=== PATIENT | female | born 1965 | race Caucasian/White ===

== ENCOUNTER 2023-06-24 19:29 | Emergency (ER) | payer BC, SELFPAY ==
--- NOTE | 2023-06-24 19:35 | ED.GENADULT ---
HPI - General Adult General Time Seen by Provider: 19:35 Date Seen: 06/24/23 Chief complaint: Diabetic Related Problem Stated complaint: high blood sugar, diabetic Time Seen by Provider: 06/24/23 19:31 Source: patient, family, RN notes reviewed and old records reviewed Mode of arrival: ambulatory Limitations: no limitations History of Present Illness HPI narrative: 57-year-old female with history of diabetes presents with elevated blood glucose. Patient has previously been on Victoza but has not had this for a couple weeks, blood glucoses have been over 200 during that time, has been taking metformin. Notes some dizziness and blurred vision. Denies urinary symptoms, abdominal pain, nausea, or vomiting. Patient is currently taking metformin 1000 mg twice a day, has never been on insulin Related Data Home Medications Medication Instructions Recorded Confirmed atorvastatin 20 mg tablet 20 mg PO DAILY 06/24/23 06/24/23 losartan 100 1 tab PO DAILY 06/24/23 06/24/23 mg-hydrochlorothiazide 12.5 mg tablet metformin 1,000 mg tablet 1,000 mg PO BID 06/24/23 06/24/23 Previous Rx's Medication Instructions Recorded insulin glargine 100 unit/mL (3 8 unit (0.08 mL) subcut QPM #3 mL 06/24/23 mL) subcutaneous pen (Lantus Solostar U-100 Insulin) Allergies Allergy/AdvReac Type Severity Reaction Status Date / Time Sulfa (Sulfonamide Allergy Unknown Verified 06/24/23 19:40 Antibiotics) Exam Narrative: Exam Narrative: General: Well-developed and well-nourished, no acute distress Head: Atraumatic and normocephalic Eyes: Pupils are equal reactive, extraocular motions intact, conjunctiva clear ENT: External nose and ears are normal, posterior pharynx without erythema or exudate Neck: No midline cervical tenderness, full spontaneous range of motion the neck, trachea midline, no adenopathy Heart: Regular rate and rhythm no murmurs or thrills Lungs: Clear to auscultation bilaterally without wheezes or crackles Abdomen: Soft, nontender, nondistended with active bowel sounds Musculoskeletal: No tenderness, deformity, or edema Neurologic: Awake, alert, and oriented x3, no gross focal neurologic deficits, cranial nerves intact as tested Psych: Mood and affect are appropriate Skin: No rashes Const: Vital Signs, click to edit/add: Vital Signs - 24 hr 06/24/23 19:37 Temperature 98.6 F Pulse Rate [Pulse Oximeter] 107 H Respiratory Rate 16 Blood Pressure [Ri ght Upper Arm] 142/84 H Pulse Oximetry 96 Oxygen Delivery Me thod Room Air Course Course ED Course: Patient seen examined, prior records reviewed. Patient presents with elevated blood glucose in setting of known diabetes and has not been on Victoza for couple of weeks. Some blurry vision but denies any other symptoms. On exam here, well-appearing, no abdominal pain or tenderness to suggest acute pancreatitis or hepatitis. Mild tachycardia and blood glucose on initial presentation 388. IV fluids are initiated and labs ordered. Reevaluation(s) Time of Reevaluation #1: 21:22 Reevaluation #1: Labs ordered and independently interpreted by me with venous blood gas pH is 7.46, urine does not demonstrate any ketones but does have glucose. No evidence for DKA. Regular insulin subcutaneously as well as long-acting insulin subcutaneous ordered. Patient thinks she will be able to get her Victoza tomorrow. Will send a prescription for long-acting insulin to the pharmacy so that if patient is unable to fill her Victoza she can start using long-acting insulin daily to prevent severe hyperglycemia until she can reestablish. If she has further difficulty, should contact primary care provider. Time of Reevaluation #2: 22:28 Reevaluation #2: Basic panel demonstrates elevated blood glucose, mild anion gap. Patient was given IV fluids in the emergency department and stable for discharge with insulin for home. Repeat blood glucose is 299. Vital Signs Vital signs: Initial Vital Signs Temperature 98.6 F 06/24/23 19:37 Temperature Source Temporal Artery Scan 06/24/23 19:37 Pulse Rate 107 H 06/24/23 19:37 Respiratory Rate 16 06/24/23 19:37 Blood Pressure 142/84 H 06/24/23 19:37 Blood Pressure Mean 103 06/24/23 19:37 Blood Pressure Position Sitting 06/24/23 19:37 Pulse Oximetry 96 06/24/23 19:37 Oxygen Delivery Method Room Air 06/24/23 19:37 Vital Signs Temperature 98.6 F 06/24/23 19:37 Pulse Rate 107 H 06/24/23 19:37 Respiratory Rate 16 06/24/23 19:37 Blood Pressure 142/84 H 06/24/23 19:37 Pulse Oximetry 96 06/24/23 19:37 Oxygen Delivery Method Room Air 06/24/23 19:37 Temperature 98.6 F 06/24/23 19:37 Pulse Rate 107 H 06/24/23 19:37 Respiratory Rate 16 06/24/23 19:37 Blood Pressure 142/84 H 06/24/23 19:37 Pulse Oximetry 96 06/24/23 19:37 Oxygen Delivery Method Room Air 06/24/23 19:37 Medications Administered Medications: Discontinued Medications Generic Name Dose Route Start Last Admin Trade Name Freq PRN Reason Stop Dose Admin Sodium Chloride 1,000 mls @ 1,000 mls/hr 06/24/23 20:00 06/24/23 21:32 0.9 % Sodium Chloride 1000 Ml IV 06/24/23 20:59 Infused .Q1H PAULO Infusion Insulin Detemir 6 unit 06/24/23 21:02 06/24/23 21:26 Insulin Detemir (Levemir) 100 Unit/Ml SUBCUT 06/24/23 21:03 6 unit ONCE ONE Administration Insulin Human Regular 4 unit 06/24/23 20:58 06/24/23 21:25 Insulin Regular 100 Unit/Ml Inj SUBCUT 06/24/23 20:59 4 unit ONCE ONE Administration Medical Decision Making Lab Data Labs: Lab Results 06/24/23 06/24/23 06/24/23 Range/Units 19:40 19:42 20:10 VBG pH 7.466 H (7.32-7.43) VBG pCO2 36 L (40-50) mmHG VBG pO2 98.0 H (25-47) mmHG VBG HCO3 26 (21-28) mmol/L Sodium 136 (135-149) mmol/L Potassium 3.8 (3.6-5.1) mmol/L Chloride 99 (96-114) mmol/L Carbon Dioxide 19 L (20-32) mmol/L Anion Gap 18 H (7-15) mEq/L BUN 14 (7-30) mg/dL Creatinine 0.5 (0.5-1.5) mg/dL Estimated Creat Clear 120.72 Estimated GFR 109 ml/min Glucose 424 H* (60-115) mg/dL Calcium 10.1 (8.4-10.6) mg/dL Urine Color Yellow (Yellow) Urine Appearance Clear (Clear) Urine pH 5.5 (5.0-8.5) Ur Specific [place] <= 1.005 (1.000-1.030) Urine Protein Negative (Negative) Urine Glucose (UA) 3+ A (Negative) Urine Ketones Negative (Negative) Urine Blood Negative (Negative) Urine Nitrite Negative (Negative) Urine Bilirubin Negative (Negative) Urine Urobilinogen 0.2 (0.2-1.0) Ur Leukocyte Esterase Negative (Negative) Urine RBC 0-2 (0-2) Urine WBC 0-2 (0-5) Ur Squamous Epith Cells None (None-Few) Urine Bacteria None (None) POC Glucose 388 H* (60-115) mg/dl Discharge Plan Discharge Clinical Impression: Controlled type 2 diabetes mellitus with hyperglycemia, without long-term current use of insulin Patient Disposition: Home w/ Parent or Adult Condition: Stable Instructions: Diabetic Hyperglycemia (ED), Type 2 Diabetes Management for Adults (ED) Additional Instructions: Start Victoza tomorrow if you are able to get it. If not, start Lantus daily until you are able to get your Victoza. Activity Level: No Restrictions Discharge Diet: Diabetic Prescriptions: New insulin glargine [Lantus Solostar U-100 Insulin] 100 unit/mL (3 mL) insulin pen 8 unit subcut QPM Qty: 3 0RF No Action atorvastatin 20 mg tablet 20 mg PO DAILY metformin 1,000 mg tablet 1,000 mg PO BID losartan-hydrochlorothiazide 100-12.5 mg tablet 1 tab PO DAILY Follow Up/Referrals: Rich Dupree MD [Primary Care Provider] - Stand Alone Forms: [employer] Info Instructions
[2023-06-24 19:37] VITALS: BP 142/84; PULSE 107; RESP 16; TEMP 37; O2SAT 96; BMI 26.9
[2023-06-24 19:42] LABS: Glucose, Point-of-Care* 388 mg/dl (60-115)
[2023-06-24 20:15] LABS: Appearance Urine Clear (Clear); Bilirubin Urine Negative (Negative); Blood Urine Negative (Negative); Color Urine Yellow (Yellow); Glucose Urine 3+ (Negative); Ketones Urine Negative (Negative); Leukocyte Esterase Urine Negative (Negative); Nitrite Urine Negative (Negative); Protein Urine Negative (Negative); Specific Gravity Urine <= 1.005 (1.000-1.030); Urobilinogen Urine 0.2 (0.2-1.0); pH Urine 5.5 (5.0-8.5)
[2023-06-24 20:16] LABS: HCO3 VBG 26 mmol/L (21-28); PCO2 VBG 36 mmHG (40-50); pH VBG 7.466 (7.32-7.43)
[2023-06-24] MEDS: 0.9 % SODIUM CHLORIDE 1000 ml 1,000 ML IV (20:20)
[2023-06-24 20:23] LABS: RBC Urine 0-2 (0-2); WBC Urine 0-2 (0-5)
--- OUTSIDE RECORDS SUMMARY | 2023-06-24 20:25 | XMS_ITS ---
Author Name Unknown Organization [facility] Address [address] [place] [address] Care Team Providers Care Lithograph Printer Name Role Phone Unavailable Unavailable Unavailable Surgery Details Not on file Complications Check Surgery Details section. Procedure Estimated Blood Loss Check Surgery Details section. Procedure Findings Check Surgery Details section. Procedure Specimens Taken Check Surgery Details section.
--- OUTSIDE RECORDS SUMMARY | 2023-06-24 20:25 | XMS_ITS | Data Portability ---
Author Name Unknown Address [address] [place] [address] Phone [phone] Organization [facility] Address [address] [place] [address] Care Team Providers Care Supervisor Building Maintenance Name Role Phone TRAV SHARPE Primary Care Provider [phone] Assessment Encounter Date Assessment Date Assessment LastModified by Organization Details LastModified Time 02/03/2022 02/03/2022 This is a 56 yea r old female who is here for the evaluation and management of nephrolithiasis [email or web address] Not available 02/03/2022 12:24:29 Plan of Treatment Reminders Order Date Submit Date Provider Last Modified By Organization Details Last Modified Time Details Appointments None recorded. Lab urinalysis , dipstick 2021 [facility], [address], [address], [place], [address], 12:18:41 culture, urine 2021 [facility], [address], [address], [place], [address], 11:42:46 Referral None recorded. Procedures None recorded. Surgeries None recorded. Imaging CT, abdomen + pelvis, w/o contrast - Please call patient to schedule 2021 [facility] [facility], [address], [address], [place], [address], 15:32:58 Medication Orders None recorded. Patient TargetsNo targets recorded. Patient Instructions Encounter Date Encounter Id Patient Instructions Last Modified By Organization Details Last Modified Time 02/03/2022 [id number] Hx of nephrolithiasis: - I will arrange for a repeat CT scan since her pain has been changing and is more constant in nature. I wonder if one of her stones is starting to pass - She states that regardless of her stone attempting to pass or not, she would like the stones on her left to be treated due to the pain - We first discussed a trial of passage with/without medical expulsive therapy. We would allow for a maximum period of 4 weeks from the onset of symptoms. At this point we would obtain repeat imaging to assess for passage or migration. -We then touched on surgical management strategies. We discussed ureteroscopic stone management. We discussed the technical aspects of the procedure as well as its limitations. We discussed the risks of the procedure including bleeding, infection. risk of ureteral injury, need for secondary procedures, and anesthetic complications. We also discussed that in about 5-10% of cases the ureter cannot facilitate the scope and this may require stent placement and a delayed procedure. We also discussed a ureteral stent is often left in place at the end of the procedure. This is not a permanent tube and must be removed, hopefully within 1-2 weeks of the procedure but certainly not more than 3 months post-procedure. - Once I have her CT results, I will contact her and arrange for elective stone treatment [email or web address] Not available 02/03/2022 12:37:05 Reason for Referral None Reported. Results Created Date Observation Date Name Description Value Unit Range Abnormal Flag LastModifiedBy Organization Detail LastModifiedTime 02/04/20 22 02/03/2022 UA DIP CS ADVAN TUS color -advantus yellow yellow Not Available [facility] [address], [place], [address], 02/03/2022 12:18:41 02/04/20 22 02/03/2022 UA DIP CS ADVAN TUS appearance -advantus clear clear Not Available [facility] [address], [place], [address], 02/03/2022 12:18:41 02/04/20 22 02/03/2022 UA DIP CS ADVAN TUS glucose -advantus negati ve mg/dL negati ve Not Available [facility] [address] [place] [address] [address], [place], [address], 02/03/2022 12:18:41 02/04/20 22 02/03/2022 UA DIP CS ADVAN TUS bilirubin -advantus negati ve negati ve Not Available [facility] [address] [place] [address], [place], [address], 02/03/2022 12:18:41 02/04/20 22 02/03/2022 UA DIP CS ADVAN TUS ketones -advantus negati ve mg/dL negati ve Not Available [facility] [address] [place] [address], [place], [address], 02/03/2022 12:18:41 02/04/20 22 02/03/2022 UA DIP CS ADVAN TUS sp. gravity -advantus <=1.00 5 1.010- 1.025 Not Available [facility] [address] [place] [address], [place], [address], 02/03/2022 12:18:41 02/04/20 22 02/03/2022 UA DIP CS ADVAN TUS pH -advantus 5.0 5.0-8. 0 Not Available [facility] [address] [place] [address], [place], [address], 02/03/2022 12:18:41 02/04/20 22 02/03/2022 UA DIP CS ADVAN TUS protein -advantus negati ve mg/dL negati ve Not Available [facility] [address] [place] [address], [place], [address], 02/03/2022 12:18:41 02/04/20 22 02/03/2022 UA DIP CS ADVAN TUS urobilinogen -advantus 0.2 normal Not Available [facility] [address] [facility] [address], [place], [address], 02/03/2022 12:18:41 02/04/20 22 02/03/2022 UA DIP CS ADVAN TUS nitrites -advantus negati ve negati ve Not Available [facility] [address] [place] [address] [address], [place], [address], 02/03/2022 12:18:41 02/04/20 22 02/03/2022 UA DIP CS ADVAN TUS blood -advantus modera te negati ve abnormal Not Available [facility] [address] [place] [address], [place], [address], 02/03/2022 12:18:41 02/04/20 22 02/03/2022 UA DIP CS ADVAN TUS leukocytes -advantus trace negati ve abnormal Not Available [facility] [address] [place] [address], [place], [address], 02/03/2022 12:18:41 02/04/20 22 02/03/2022 UA DIP CS ADVAN TUS performed by denise Kinsey Not Available [facility] [address] [place] [address], [place], [address], 02/03/2022 12:18:41 02/04/20 22 02/03/2022 UA DIP CS ADVAN TUS total urine volume (mL) 80 /mL Not Available [facility] [address] [place] [address], [place], [address], 02/03/2022 12:18:41 02/04/20 22 02/03/2022 UA MICRO SCOPI C U-WBC 2 - 5 [hpf] 0 - 2 abnormal Not Available [facility] [address] [place] [address], [place], [address], 02/03/2022 12:18:46 02/04/20 22 02/03/2022 UA MICRO SCOPI C U-RBC 0 - 2 [hpf] 0 - 2 Not Available [facility] [address], [place], [address], 02/03/2022 12:18:46 02/04/20 22 02/03/2022 UA MICRO SCOPI C bacteria small [hpf] negati ve abnormal Not Available [facility] [address], [place], [address], 02/03/2022 12:18:46 02/04/20 22 02/03/2022 UA MICRO SCOPI C squamous epi small /lpf negati ve,sma ll Not Available [facility] [address], [place], [address], 02/03/2022 12:18:46 02/04/20 22 02/03/2022 URINE CULTU RE final report microb iology result s Not Available [facility] [address], [place], [address], 02/05/2022 11:42:46 02/17/20 22 02/21/2022 STONE DESTIN SIS source commen t Not Available [facility] ([facility]) [address] [place], [address], 02/21/2022 12:07:23 02/17/20 22 02/21/2022 STONE DESTIN SIS color hanna Not Available [facility] ([facility]) [address] [place], [address], 02/21/2022 12:07:23 02/17/20 22 02/21/2022 STONE DESTIN SIS size <1 mm Not Available [facility] ([facility]) [address] [place], [address], 02/21/2022 12:07:23 02/17/20 22 02/21/2022 STONE DESTIN SIS weight <1 mg Not Available [facility] ([facility]) [address] [place], [address], 02/21/2022 12:07:23 02/17/20 22 02/21/2022 STONE DESTIN SIS composition commen t Not Available [facility] ([facility]) [address] [place], [address], 02/21/2022 12:07:23 02/17/20 22 02/21/2022 STONE DESTIN SIS calcium oxalate monohydrate 40 % Not Available [facility] ([facility]) [address] [place], [address], 02/21/2022 12:07:23 02/17/20 22 02/21/2022 STONE DESTIN SIS calcium oxalate dihydrate 60 % Not Available [facility] ([facility]) [address] [place], [address], 02/21/2022 12:07:23 02/17/20 22 02/21/2022 STONE DESTIN SIS hydroxyapati te green ware caster Not Available [facility] ([facility]) [address] [place], [address], 02/21/2022 12:07:23 02/17/20 22 02/21/2022 STONE DESTIN SIS carbonate apatite green ware caster Not Available [facility] ([facility]) [address] [place], [address], 02/21/2022 12:07:23 02/17/20 22 02/21/2022 STONE DESTIN SIS cahpo4 (brushite) green ware caster Not Available [facility] ([facility]) [address] [place], [address], 02/21/2022 12:07:23 02/17/20 22 02/21/2022 STONE DESTIN SIS calcium phosphate green ware caster Not Available [facility] ([facility]) [address] [place], [address], 02/21/2022 12:07:23 02/17/20 22 02/21/2022 STONE DESTIN SIS calcium carbonate green ware caster Not Available [facility] ([facility]) [address], [place], [address], 02/21/2022 12:07:23 02/17/20 22 02/21/2022 STONE DESTIN SIS mg nh4 PO4 (struvite) green ware caster Not Available [facility] ([facility]) [address], [place], [address], 02/21/2022 12:07:23 02/17/20 22 02/21/2022 STONE DESTIN SIS mghpo4 (newberyite) green ware caster Not Available [facility] ([facility]) [address], [place], [address], 02/21/2022 12:07:23 02/17/20 22 02/21/2022 STONE DESTIN SIS uric acid green ware caster Not Available [facility] ([facility]) [address], [place], [address], 02/21/2022 12:07:23 02/17/20 22 02/21/2022 STONE DESTIN SIS uric acid dihydrate green ware caster Not Available [facility] ([facility]) [address], [place], [address], 02/21/2022 12:07:23 02/17/20 22 02/21/2022 STONE DESTIN SIS ammonium acid urate green ware caster Not Available [facility] ([facility]) [address] [place], [address], 02/21/2022 12:07:23 02/17/20 22 02/21/2022 STONE DESTIN SIS sodium acid urate green ware caster Not Available [facility] ([facility]) [address] [place], [address], 02/21/2022 12:07:23 02/17/20 22 02/21/2022 STONE DESTIN SIS 2,8 dihydroxyade nine green ware caster Not Available [facility] ([facility]) [address] [place], [address], 02/21/2022 12:07:23 02/17/20 22 02/21/2022 STONE DESTIN SIS xanthine green ware caster Not Available [facility] ([facility]) [address] [place], [address], 02/21/2022 12:07:23 02/17/20 22 02/21/2022 STONE DESTIN SIS cystine green ware caster Not Available [facility] ([facility]) [address] [place], [address], 02/21/2022 12:07:23 02/17/20 22 02/21/2022 STONE DESTIN SIS cholesterol green ware caster Not Available [facility] ([facility]) [address] [place], [address], 02/21/2022 12:07:23 02/17/20 22 02/21/2022 STONE DESTIN SIS calcium bilirubinate green ware caster Not Available [facility] ([facility]) [address] [place], [address], 02/21/2022 12:07:23 02/17/20 22 02/21/2022 STONE DESTIN SIS bilirubin green ware caster Not Available [facility] ([facility]) [address] [place], [address], 02/21/2022 12:07:23 02/17/20 22 02/21/2022 STONE DESTIN SIS calcium palmitate green ware caster Not Available [facility] ([facility]) [address] [place], [address], 02/21/2022 12:07:23 02/17/20 22 02/21/2022 STONE DESTIN SIS calcium stearate green ware caster Not Available [facility] ([facility]) [address] [place], [address], 02/21/2022 12:07:23 02/17/20 22 02/21/2022 STONE DESTIN SIS triamterene green ware caster Not Available [facility] ([facility]) [address], [place], [address], 02/21/2022 12:07:23 02/17/20 22 02/21/2022 STONE DESTIN SIS drug or metabolite green ware caster Not Available [facility] ([facility]) [address], [place], [address], 02/21/2022 12:07:23 02/17/20 22 02/21/2022 STONE DESTIN SIS dried blood green ware caster Not Available [facility] ([facility]) [address], [place], [address], 02/21/2022 12:07:23 02/17/20 22 02/21/2022 STONE DESTIN SIS cellular material green ware caster Not Available [facility] ([facility]) [address], [place], [address], 02/21/2022 12:07:23 02/17/20 22 02/21/2022 STONE DESTIN SIS other component(s) green ware caster Not Available [facility] ([facility]) [address], [place], [address], 02/21/2022 12:07:23 02/17/20 22 02/21/2022 STONE DESTIN SIS comment green ware caster Not Available [facility] ([facility]) [address], [place], [address], 02/21/2022 12:07:23 02/17/20 22 02/21/2022 STONE DESTIN SIS comment commen t Not Available [facility] ([facility]) [address], [place], [address], 02/21/2022 12:07:23 02/17/20 22 02/21/2022 STONE DESTIN SIS photo tnp Not Available [facility] ([facility]) [address], [place], [address], 02/21/2022 12:07:23 02/17/20 22 02/21/2022 STONE DESTIN SIS comment: commen t Not Available [facility] ([facility]) [address], [place], [address], 02/21/2022 12:07:23 02/17/20 22 02/21/2022 STONE DESTIN SIS please note: commen t Not Available [facility] ([facility]) [address] [place], [address], 02/21/2022 12:07:23 02/17/20 22 02/21/2022 STONE DESTIN SIS disclaimer: commen t Not Available [facility] ([facility]) [address], [place], [address], 02/21/2022 12:07:23 02/17/20 22 02/21/2022 STONE DESTIN SIS pdf . Not Available [facility] ([facility]) [address], [place], [address], 02/21/2022 12:07:23 02/17/20 22 02/16/2022 STONE DESTIN SIS-L C source commen t Not Available [facility] [address], [place], [address], 02/22/2022 14:48:34 02/17/20 22 02/16/2022 STONE DESTIN SIS-L C color hanna Not Available [facility] [address] [facility] [address], [place], [address], 02/22/2022 14:48:34 02/17/20 22 02/16/2022 STONE DESTIN SIS-L C size <1 mm Not Available [facility] [address], [place], [address], 02/22/2022 14:48:34 02/17/20 22 02/16/2022 STONE DESTIN SIS-L C weight <1 mg Not Available [facility] [address], [place], [address], 02/22/2022 14:48:34 02/17/20 22 02/16/2022 STONE DESTIN SIS-L C composition commen t Not Available [facility] [address], [place], [address], 02/22/2022 14:48:34 02/17/20 22 02/16/2022 STONE DESTIN SIS-L C calcium oxalate monohydrate 40 % Not Available [facility] [address] [facility], [place], [address], 02/22/2022 14:48:34 02/17/20 22 02/16/2022 STONE DESTIN SIS-L C calcium oxalate dihydrate 60 % Not Available [facility] [address], [place], [address], 02/22/2022 14:48:34 02/17/20 22 02/16/2022 STONE DESTIN SIS-L C comment commen t Not Available [facility] [address], [place], [address], 02/22/2022 14:48:34 02/17/20 22 02/16/2022 STONE DESTIN SIS-L C photo test not perfor med. Not Available [facility] [address] [facility] [address], [place], [address], 02/22/2022 14:48:34 02/17/20 22 02/16/2022 STONE DESTIN SIS-L C comment: commen t Not Available [facility] [address] [facility] [address], [place], [address], 02/22/2022 14:48:34 02/17/20 22 02/16/2022 STONE DESTIN SIS-L C please note: commen t Not Available [facility] [address] [facility], [place], [address], 02/22/2022 14:48:34 02/17/20 22 02/16/2022 STONE DESTIN SIS-L C disclaimer: commen t Not Available [facility] [address], [place], [address], 02/22/2022 14:48:34 02/17/20 22 02/16/2022 STONE DESTIN SIS-L C pdf . Not Available [facility] [address], [place], [address], 02/22/2022 14:48:34 01/06/20 22 09/30/2021 CT, abdom en + pelvi s, w/o contr ast No observ ation record ed. Not Available 01/06/2022 14:02:45 02/09/20 22 02/05/2022 CT, abdom en + pelvi s, w/o contr ast No observ ation record ed. [email or web address] [facility] [address], [place], [address], 02/10/2022 10:14:51 02/09/20 22 02/05/2022 CT, abdom en + pelvi s, w/o contr ast No observ ation record ed. [email or web address] [facility] [address], [place], [address], 02/15/2022 16:28:30 Result Notes None recorded. Problems Name Status Onset Date Resolution Date Notes Provider Name and Address Organization Details Recorded Time Hypercholesterolemia Active Jammie Goodpaste r null, [facility] 2 11:52:45 Hypertensive disorder Active Jammie Goodpaste r null, [facility] 2 11:52:57 History of calculus of kidney Active Jammie Goodpaste r null, [facility] 2 11:53:08 Diabetes mellitus Active Ma ndi Goodpaste r null, [facility] 2 11:53:17 Malignant neoplastic disease Active Jammie Goodpaste r null, [facility] 11:53:26 Problem Notes None recorded. Procedures Surgical History Date Name Laterality Status Provider Name and Address Organization Details Recorded Time 10/22/19 Diagnostic colonoscopy completed Not Available Health Note 01/11/2022 12:44:30 delivery completed Not Available Health Note 01/11/2022 12:44:30 Imaging Results Imaging Date Name Status LastModified by Organiz ation Details LastModified Time 09/30/2021 CT, abdomen + pelvis, w/o contrast completed Information not available 01/06/2022 14:02:45 02/05/2022 CT, abdomen + pelvis, w/o contrast completed [email or web address] [facility] [address], [place], [address], 02/10/2022 10:14:51 02/05/2022 CT, abdomen + pelvis, w/o contrast completed [email or web address] [facility] [address], [place], [address], 02/15/2022 16:28:30 Procedure Notes None recorded. Medical Equipment None Reported. Allergies Allergen ID Allergen Name Allergen Category Reaction Reaction Severity Criticality Documentation Date Start Date Code Code System Note Provider Name and Address Organization Details Recorded Time [id number] Substance with sulfonami de structure and antibacte rial mechanism of action (substanc e) medicatio n Not available Not available Not available 02/03/2022 [id number] SNOMED Jammie Iván hernandez, [facility] 11:51:15 Medications Name Sig Start Date Stop Date Status Note LastModified by Organization Details LastModified Time losartan 50 mg tablet TAKE ONE TABLET BY MOUTH EVERY DAY active Not Available Not Available No t Available amoxicillin 500 mg capsule TAKE ONE CAPSULE BY MOUTH THREE TIMES A DAY UNTIL GONE 02/03 completed Not Available Not Available Not Available atorvastati n 20 mg tablet TAKE ONE TABLET BY MOUTH EVERY DAY active Not Available Not Available No t Available hydrocodone 5 mg-acetamin ophen 325 mg tablet TAKE ONE TABLET BY MOUTH EVERY 4 HOURS NEEDED FOR PAIN 02/03 completed Not Available Not Available Not Available tamsulosin 0.4 mg capsule TAKE ONE CAPSULE BY MOUTH EVERY DAY AFTER MEAL active Not Available Not Available No t Available cephalexin 500 mg capsule TAKE ONE CAPSULE BY MOUTH TWICE A DAY FOR 7 DAYS 02/03 completed Not Available Not Available Not Available metformin 1,000 mg tablet TAKE ONE TABLET BY MOUTH TWICE A DAY WITH MEALS active Not Available Not Available No t Available omeprazole 20 mg capsule,del ayed release TAKE ONE CAPSULE BY MOUTH EVERY DAY BEFORE A MEAL active Not Available Not Available No t Available oxybutynin chloride 5 mg tablet TAKE ONE TABLET BY MOUTH TWICE A DAY FOR 7 DAYS active Not Available Not Available No t Available sertraline 50 mg tablet TAKE ONE TABLET BY MOUTH EVERY DAY active Not Available Not Available No t Available aspirin 81mg 1/day active Not Available Not Available No t Available metformin 1000mg 2/day active Not Available Not Available No t Available Victoza 2-Anthony 1.2 mg 1/day active Not Available Not Available No t Available Victoza 3-Anthony 0.6 mg/0.1 mL (18 mg/3 mL) subcutaneou s pen injector INJECT 1.2MG ONCE DAILY active Not Available Not Available No t Available BD Belkys 2nd Gen Pen Needle 32 gauge x 5/32 REMOVE THE 2 COVERS ON THE INSULIN PEN NEEDLE BEFORE ADMINISTE RING INSULIN DOSE. active Not Available Not Available No t Available Vitals None Recorded Social History Question Answer Notes LastModified by Organizat ion Details LastModified Time Tobacco Smoking Status Never Smoker Not Available Health Note 01/11/2022 12:44:31 What Is Your Level Of Alcohol Consumption? None Information not available 02/03/2022 What Is Your Level Of Caffeine Consumption? Occasional [email or web address] Information not available 01/11/2022 How Much Tobacco Do You Chew? None [email or web address] Information not available 01/11/2022 Do You Or Have You Ever Used E-cigarettes Or Vape? Never Used Electronic Cigarettes [email or web address] Information not available 01/11/2022 Have You Or Anyone In Your House Tested Positive For COVID-19 In The Past 14 Days? No [email or web address] Information not available 01/11/2022 Have You Or Anyone In Your House Been Exposed To COVID-19 In The Past 14 Days? No [email or web address] Information not available 01/11/2022 Have You Or Anyone In Your Home Experienced Symptoms Of COVID 19 Such As Fever >100.4, Shortness Of Breath, Difficulty Breathing, Or A Cough? No [email or web address] Information not available 01/11/2022 Have You Traveled Outside Of [place] In The Past 30 Days? No [email or web address] Information not available 01/11/2022 Race Na Information not available 02/03/2022 Preferred Language Syriac Information not available 02/03/2022 Number Of Pregnancies 5 [email or web address] Information not available 01/11/2022 Number Of Vaginal Deliveries 3 [email or web address] Information not available 01/11/2022 Number Of Caesarean Sections 2 [email or web address] Information not available 01/11/2022 What Was The Date Of Your Most Recent Tobacco Screening? 02/03/2022 Information not available 02/03/2022 What Is Your Relationship Status? [email or web address] Information not available 01/11/2022 Are You Sexually Active? Yes [email or web address] Information not available 01/11/2022 Do You Or Have You Ever Used Smokeless Tobacco? Never Used Smokeless Tobacco [email or web address] Information not available 01/11/2022 Do You Use Any Illicit Or Recreational Drugs? No [email or web address] Information not available 01/11/2022 Has Tobacco Cessation Counseling Been Provided? Yes Information not available 02/03/2022 On What Date Was Tobacco Cessation Counseling Provided? 02/03/2022 Information not available 02/03/2022 Sex: Female Functional Status None recorded. Mental Status None recorded. Family History Relationship Description Onset Age of this Age Resolved Age Notes Mother Family history of ne oplasm of ovary Father Family history of pr ostate cancer 45 Medical History Condition Response Sexually Transmitted Infection N Diabetes Y Other N Bleeding Disorder N High Blood Pressure Y Kidney Stones Y High Cholesterol Y GERD/Acid Reflux N Heart Disease N Cancer Y Depression Y Lung Disease N Gynecological History Statement/Question Response If Post Menopausal, Age at Menopause 44 Leaking urine with intercourse N Hormone Therapy N Sexually Active? Y Pain with intercourse N Obstetrics History GPAL:G 0 P 0 0 0 0 Immunizations Vaccine Type Date Status Provider Name and Address Organization Details Recorded Time Tdap 12/07/2019 completed OSIEL Patino [facility] 02/03/2022 11:50:33 Hep A-Hep B 08/31/2005 completed Jammie Goodpaste r null, [facility] 02/03/2022 11:50:33 Hep A-Hep B 11/09/2005 completed Jammie Goodpaste r null, [facility] 02/03/2022 11:50:33 Tdap 08/20/2008 completed Jammie Goodpaste r null, [facility] 02/03/2022 11:50:33 Past Encounters Encounter ID Performer Location Encounter Start Date Encounter Closed Date Diagnosis/Indication [id number] MATIAS [facility] [facility],[address] [place] [id number] 02/03/2022 11:43:44 02/03/2022 13:04:33 Kidney stone Health Concerns Section Related Observation LastModified by Organization Detai ls LastModified Time None Recorded Concern Status LastModified by Organization Details LastModified Time None Recorded Advance Directives Directive None Recorded Payers Encounter Date Sequence Insurance Name Policy Number Policy [place] Covered Member ID Sutherland Member ID Guarantor Name 02/03/2022 1 [facility] [id number] Jose Winter [id number] Anu Winter Notes Date Note Type Note Provider Name and Address Organization Details Recorded Time 02/03/2022 text/html HPI Notes: This is a 56 year old female who is here for the evaluation and management of nephrolithiasis She was seen in due to left flank pain and hematuria A CT of the abdomen and pelvis w/o contrast was performed on 09/30/2021 which revealed two 6mm lower pole stones within the left kidney and a 2mm stone within the lower pole of the right kidney She states that since her scan, her left flank pain has been becoming more constant in nature They report a prior history of stone disease. There is family history of nephrolithiasis. MATIAS Burton [address] [place] [address],[place] [address], [place], [phone], [facility] 02/03/2022 12:37:19 OBGyn Episode No OBEpisode recorded.
--- OUTSIDE RECORDS SUMMARY | 2023-06-24 20:25 | XMS_ITS | Referral Summary ---
Author Name Unknown Organization [facility] Address [address] [place] [address] Care Team Providers Care Transition Teacher Name Role Phone Elsewhere, Pcp Primary Care Provider Unavailabl e Source Comments Patient records contain information from all sites at [facility]. For routine questions regarding patient records, call [phone] during business hours, M-F 8:00 AM - 5:00 PM Central Time. Record requests for emergency care only can be directed to [phone] at any time.[facility] Allergies Active Allergy Reactions Criticality Noted Date Comments Sulfa (Sulfonamide Antibiotics) Rash 07/23/2006 Venlafaxine Other (see comments) 01/30/2018 Suicidal ideations Medications Medication Sig Dispensed Refills Start Date End Date Status aspirin 81 mg capsule Take 81 mg by mouth daily. 0 Active metFORMIN (GLUCOPHAGE) 1,000 mg tablet Take 1,000 mg by mouth 2 (two) times a day. 0 Active liraglutide (Victoza 2-Anthony) 0.6 mg/0.1 mL (18 mg/3 mL) injection Inject 1.2 mg under the skin daily. 0 Active atorvastatin (LIPITOR) 20 mg tablet Take 20 mg by mouth daily. 0 05/31/2022 Active blood sugar diagnostic strips 1 each by other route daily. 0 12/13/2019 Active losartan (COZAAR) 50 mg tablet Take 50 mg by mouth daily. 0 09/11/2021 Active BD Belkys 2nd Gen Pen Needle 32 gauge x 5/32 needle Inject 1 each under the skin daily. 0 05/30/2022 Active Active Problems Problem Noted Date Diagnosed Date Stone Urinary Personal History 06/15/2022 Diabetes Mellitus NOS 12/27/2016 Hypertension Essential Primary 12/27/2016 Social History Tobacco Use Types Packs/Day Years Used Date Smoking Tobacco: Never Smokeless Tobacco: Never Tobacco Cessation:Counseling Given: Not Answered Nutrition Answer Date Recorded Nutrition: EVOO Fat Source Unknown 07/15 Nutrition: Servings of Fruits/Vegetables per Day Not on file 2020 Dental Answer Date Recorded Dental: Regular Dentist Unknown 07/15/19 21 Sex and Gender Information Value Date Recorded Sex Assigned at Not on file Gender Identity Not on file Sexual Orientation Not on file Last Filed Vital Signs Vital Sign Reading Time Taken Comments Blood Pressure 146/101 06/15/2022 3:59 PM STORE STOCKER Pulse 97 06/15/2022 3:59 PM STORE STOCKER Temperature 36.5 ??C (97.7 ??F) 06/15/2022 3:54 PM CS T Respiratory Rate - - Oxygen Saturation - - Inhaled Oxygen Concentration - - Weight 82.6 kg (182 lb 1.6 oz) 06/15/2022 3:54 P M STORE STOCKER Height - - Body Mass Index - - Plan of Treatment Not on file Care Teams Transition Teacher Relationship Specialty Start Date End Date Elsewhere, Pcp PCP - General Internal Medicine 06/15/22
--- OUTSIDE RECORDS SUMMARY | 2023-06-24 20:25 | XMS_ITS | Clinical Summary ---
Author Name Unknown Organization [facility] Address [address] [place] [address] Care Team Providers Care Pit Manager Name Role Phone Elsewhere, Pcp Primary Care Provider Unavailabl e Source Comments Patient records contain information from all sites at [facility]. For routine questions regarding patient records, call [phone] during business hours, M-F 8:00 AM - 5:00 PM Central Time. Record requests for emergency care only can be directed to [phone] at any time.[facility] Allergies Active Allergy Reactions Criticality Noted Date [...] Comments Blood Pressure 146/101 06/15/2022 3:59 PM JUNIOR PROJECT COORDINATOR Pulse 97 06/15/2022 3:59 PM JUNIOR PROJECT COORDINATOR Temperature 36.5 ??C (97.7 ??F) 06/15/2022 3:54 PM CS T Respiratory Rate - - Oxygen Saturation - - Inhaled Oxygen Concentration - - Weight 82.6 kg (182 lb 1.6 oz) 06/15/2022 3:54 P M JUNIOR PROJECT COORDINATOR Height - - Body Mass Index - - Plan of Treatment Health Maintenance Due Date Last Done Comments CT Colonography 1965 Cervical Cancer Screening 1965 Cologuard 1965 Colonoscopy 1965 Colorectal Cancer Screening 1965 Diabetic Office Visit with F oot Exam 1965 Dilated Eye Exam 1965 FIT 1965 HIV Screening 1965 Hemoglobin A1C 1965 Hepatitis C Screening 1965 Mammogram 1965 Urine Albumin 1965 COVID-19 Vaccine (#1) 01/12/1966 Pneumococcal vaccine (0-64 y ears) (1 of 2 - PCV) 1971 Hepatitis B Vaccines (3 of 3 - Hep B Twinrix 3-dose series) 04/11/2006 11/09/2005, 08/31/2005 Zoster Vaccines (1 of 2) 2015 Office Visit for Blood Press ure Check / Re-check 09/13/2022 06/15/2022 Influenza Vaccine (#1) 2023 Depression Screening (Annual PHQ-2) 05/23/2023 Creatinine Level (Kidney Fun ction Test) 06/15/2023 06/15/2022, 02/11/2022, 01/12/2021, Additional history exists Potassium Level 06/15/2023 06/15/2022, 01/22, 01/12/2021, Additional history exists Sodium Level 06/15/2023 06/15/2022, 01/22, 01/12/2021, Additional history exists Lipid (Cholesterol) Screening 02/11/2027, 01/12/2021, 11/08/2019, Additional history exists DTaP,Tdap,and Td Vaccines (3 - Td or Tdap) 12/06/2029 12/07/2019, 08/20/2008 Care Teams Pit Manager Relationship Specialty Start Date End Date Elsewhere, Pcp PCP - General Internal Medicine 06/15/22
--- OUTSIDE RECORDS SUMMARY | 2023-06-24 20:25 | XMS_ITS | Clinical Summary ---
Author Name Unknown Organization [facility] Address [place], [place] [address] Care Team Providers Care Burlap Bag Sewer Name Role Phone Rich Dupree MD Primary Care Provider [phone] Allergies Active Allergy Reactions Criticality Noted Date Comments Venlafaxine Other - Describe In Comment Field 01/30/2018 Suicidal ideations Sulfa (Sulfonamide Antibiotics) Rash 07/23/2006 Medications Medication Sig Dispensed Refills Start Date End Date Status blood-glucose meterIndications:Di abetes mellitus type 2, uncontrolled, without complications Dispense meter, test strips, lancets covered by pt ins. E11.65 NIDDM type II, uncontrolled - Test 1 time/day 1 Device 0 6 Active aspirin chewable 81 mg chewable tablet Take 1 tablet by mouth once daily with a meal. 0 7 Active atorvastatin (LIPITOR) 20 mg tabletIndications:M ixed hyperlipidemia Take 1 Tablet (20 mg) by mouth once daily. 90 Tablet 3 3 Active Insulin [place], Disposable, (Pen Needle) 32 gauge x 5/32Indications:Ty pe 2 diabetes mellitus with microalbuminuria, without long-term current use of insulin (HC) As directed. Remove the 2 covers on the insulin pen needle before administering insulin dose. 100 Each 3 3 Active blood sugar diagnostic (Blood Glucose Test) stripIndications:Ty pe 2 diabetes mellitus with microalbuminuria, without long-term current use of insulin (HC) Dispense item covered by pt ins. E11.9 NIDDM type II - Test 2 times/day. Reason: New diabetes 200 Each 3 3 Active liraglutide (VICTOZA) 0.6 mg/0.1 mL (18 mg/3 mL) subcutaneous penIndications:Type 2 diabetes mellitus with microalbuminuria, without long-term current use of insulin (HC) Inject 0.3 mL (1.8 mg) subcutaneous once daily. 27 mL 3 3 Active metFORMIN (GLUCOPHAGE) 1,000 mg tabletIndications:T ype 2 diabetes mellitus with microalbuminuria, without long-term current use of insulin (HC) TAKE ONE TABLET BY MOUTH TWICE A DAY WITH MEALS 180 Tablet 3 3 Active losartan-hydrochlor othiazide (HYZAAR) 100-12.5 mg tabletIndications:H TN (hypertension) Take 1 Tablet by mouth once daily. 90 Tablet 3 4 Active semaglutide (Ozempic) 2 mg/3 mL penIndications:Type 2 diabetes mellitus with microalbuminuria, without long-term current use of insulin (HC) Inject 0.375 mL (0.25 mg) subcutaneous once weekly for 28 days, THEN 0.75 mL (0.5 mg) once weekly for 28 days. 6 mL 0 4 08/05/19 24 Active losartan (COZAAR) 100 mg tabletIndications:H TN (hypertension) Take 1 Tablet (100 mg) by mouth once daily. 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 Nephrolithiasis 07/12/2010 Resolved Problems Problem Noted Date Diagnosed Date Resolved Date Acquired absence of breast and nipple 11/24/2010 01/12/2021 Calcification of left breast 04/08/2010 06/17/2010 health maintenance 07/23/2006 7 Encounters Date Type Department Care Team Description 06/13/2023 Telephone [facility] [address] [place] [address] Rich Dupree MD Prior Authorization (liraglutide (VICTOZA) 0.6 mg/0.1 mL (18 mg/3 mL) subcutaneous pen - PA NOT NEEDED ) 06/13/2023 Telephone [facility] [address] [place] [address] Rich Dupree MD Medication Management (New Script Request: Victozia 3 boxes ($40) per fill for 90 day supply) 06/10/2023 Telephone [facility] [address] [place] [address] Rich Dupree MD Medication Management (liraglutide (VICTOZA) 0.6 mg/0.1 mL (18 mg/3 mL) subcutaneous pen) 06/10/2023 Telephone [facility] [address] [place] [address] Rich Dupree MD Refill Request (liraglutide (VICTOZA) 0.6 mg/0.1 mL (18 mg/3 mL) subcutaneous pen) 06/02/2023 12:20 PM DEXTRINE MIXER Office Visit [facility] [address] [place] [address] Rich Dupree MD Diabetes 06/02/2023 Travel from Last 3 Months Immunizations Name Administration Dates Next Due HepA-HepB (Twinrix) 11/09/2005,08/31/2005 Td (Age >=7 Years) 05/23/1996 Tdap 12/07/2019,08/20/2008 Family History Medical History Relation Name Comments Hypertension Father Other Father prostate carcin randall Peripheral vascular disease Father s/p AAA repair Hypertension Mother Other Mother ovarian carcino ma Cancer-colon Other 1 Mae maternal first cousin Cancer-ovarian Other 2 Radha maternal firs t cousin Coronary artery disease Paternal Uncle Rubens Cancer-breast Sister 1 Relation Name Status Comments Father Alive Mother Other 1 Mae Alive Other 2 Radha Alive Paternal Uncle Rubens Sister 1 Alive Sister 2 Alive Social History Tobacco Use Types Packs/Day Years Used Date Smoking Tobacco: Never Smokeless Tobacco: Never Tobacco Cessation:Counseling Given: Yes Alcohol Use Standard Drinks/Week Comments No 0 (1 standard drink = 0.6 oz pur e alcohol) PHQ-2 Answer Date Recorded PHQ-2 TOTAL SCORE 0 09/29/2022 Social Connections Answer Date Recorded Frequency of Communication with Friends and Fami ly Not on file 05/23/2021 Financial Resource Strain Answer Date R ecorded Difficulty of Paying Living Expenses Not on file 05/23/2021 Difficulty of Paying Living Expenses Not on file 05/23/2021 Sex and Gender Information Value Date Recorded Sex Assigned at Not on file Gender Identity Not on file Sexual Orientation Not on file Obstetrics History Para Term AB IAB SAB Ectopic Multiple Livin g Live Births 5 5 Date Outcome GA Total Labor Labor/2nd/3rd Weight Sex Delivery Anes PTL Cyndi A1 A5 Name Cl in Para Para Para Para Para Last Filed Vital Signs Vital Sign Reading Time Taken Comments Blood Pressure 138/88 06/02/2023 12:54 PM DEXTRINE MIXER Pulse 90 06/02/2023 12:31 PM DEXTRINE MIXER Temperature 36.6 ??C (97.9 ??F) 09/30/2021 8:13 AM CD T Respiratory Rate 16 12/27/2016 9:09 AM CDT Oxygen Saturation 98% 06/02/2023 12:31 PM DEXTRINE MIXER Inhaled Oxygen Concentration - - Weight 78.2 kg (172 lb 8 oz) 06/02/2023 12:31 PM DEXTRINE MIXER Height 169.7 cm (5' 6.81) 02/08/2023 3:15 PM CD T Body Mass Index 27.17 02/08/2023 3:15 PM CDT Plan of Treatment Upcoming Encounters Date Type Department Care Team (Late st Contact Info) Description 06/30/2023 12:45 PM DEXTRINE MIXER Orders Only [facility] [place] [address] [place], [place] 09/01/2023 9:50 AM CDT Office Visit [facility] [address] [place] [address] Rich Dupree MD [address] [place] [address] Health Maintenance Due Date Last Done Comments COVID-19 vaccine series (#1) 1970 Pneumococcal series for age 6-64 (1 of 2 - PCV) 1971 Zoster (shingles) series for age 50+ (1 of 2) 1984 Hepatitis B series for Diabe dmitri (3 of 3 - Hep B Twinrix 3-dose series) 04/11/2006 11/09/2005, 08/31/2005 Influenza for age 50-64 01/21/2023 Depression screening for age 12+ 09/30/2023 09/29/2022, 09/14/2021, 09/11/2021, Additional history exists BMI (ht and wt on same day) for age 18+ 02/09/2024 02/08/2023, 09/29/2022, 09/30/2021, Additional history exists Pap test for age 21-65 12/06/2024 , 12/07/2019, 01/19/2016, Additional history exists Lipids for age 45-75 02/09/2028 02/08/2023, 02/11/2022, 01/12/2021, Additional history exists Colonoscopy through age 75 12/08/2028 12/08/2018, Tetanus booster 12/06/2029 12/07/2019, 07/23, 05/23/1996 Hepatitis C screening for ag e 18-79 Completed 04/14/2011 Tdap Completed 12/07/2019, 08/20/2008 HIV for age 15-65 Completed 09/29/2022 Medical Devices Implanted Type Area Waste And Batting Waste Chopper Device Identifier Shelf Expiration Date Model / Serial / Lot Implnt Mammary [id number] - [id number] Implanted:Qty: 1 on 11/24/2010 at [facility] Explanted:at [facility] (Quantity not on file) Left: Breast J And J U[employer]erv [id number] # / [id number] / [id number] implnt Mammary [id number] Implanted:Qty: 1 on 11/24/2010 at [facility] Explanted:at [facility] (Quantity not on file) Right: Breast J And J [place] Ad[employer]igo [id number] # / [id number] / [id number] Procedures Procedure Name Priority Date/Time Associated Diagnosis Comments HEMOGLOBIN A1C Routine 06/02/2023 12:26 PM DEXTRINE MIXER Type 2 diabetes mellitus with microalbuminuria, without long-term current use of insulin (HC) from Last 3 Months Results * (ABNORMAL) HEMOGLOBIN A1C MONITORING (POCT) (06/02/2023 12:26 PM DEXTRINE MIXER) HEMOGLOBIN A1C MONITORING (POCT) 7.8(H) <=6.4 % 06/02/2023 12:35 PM DEXTRINE MIXER [facility] Blood BLOOD SPECIMEN / Unknown Butterfly / Unknown 06/02/2023 12:26 PM DEXTRINE MIXER 06/02/2023 12:27 PM DEXTRINE MIXER Narrative [facility] - 06/02/2023 12:35 PM DEXTRINE MIXER ? (<=6.9%) ? Indicates good control ? (7.0% to 7.9%) ? Indicates fair control ? (>=8.0%) ? Indicates poor control ?? NOTE: ??These thresholds are guidelines and ?individual targets may vary. Falsely low levels may be seen with: Recent Transfusion, Recent Significant Blood Loss, Hemolytic Diseases, or Falsely elevated levels may be seen with: Untreated Anemias, Splenectomy ? Rich Dupree MD CHEMISTRY [facility] [address] [place] [address], from Last 3 Months Advance Directives Latest Code Status on File Code Status Date Activated Date Inactivated Comments Full Code 06/11/2013 10:13 AM 06/12/2013 2:26 AM Code Status History Code Status Date Activated Date Inactivated Comments Full Code 11/24/2010 7:34 AM 11/24/2010 12:53 PM Full Code 11/24/2010 6:05 AM 11/24/2010 7:34 AM Care Teams Burlap Bag Sewer Relationship Specialty Start Date End Date Rich Dupree MD [address] [place] [address] PCP - General Family Practice 10/09/18
[2023-06-24 22:06] LABS: Chloride* 99 mmol/L (96-114); Potassium* 3.8 mmol/L (3.6-5.1); Sodium* 136 mmol/L (135-149)
[2023-06-24 22:08] LABS: Creatinine* 0.5 mg/dL (0.5-1.5); Est. Creatinine Clearance* 120.72; Estimated Glomerular Filt Rate 109 ml/min
[2023-06-24 22:09] LABS: Anion Gap 18 mEq/L (7-15); Blood Urea Nitrogen* 14 mg/dL (7-30); Calcium* 10.1 mg/dL (8.4-10.6); Carbon Dioxide* 19 mmol/L (20-32)
[2023-06-24 22:13] LABS: Glucose* 424 mg/dL (60-115)
== END 2023-06-24 22:38 | disposition home or self-care (01) ==
PROVIDERS: Emergency Provider Family Medicine; PCP Surgery
DX: E11.65 Type 2 diabetes mellitus with hyperglycemia (principal); Z79.4 Long term (current) use of insulin
CPT/HCPCS: 36415; 80048; 81001; 82803; 82947; 82962; 96360; 99284; J7030

== ENCOUNTER 2024-03-13 09:00 | Outpatient (RCR) | payer BC, SELFPAY | END 2024-03-14 07:36 | disposition home or self-care (01) | PROVIDERS: PCP Surgery; Visit Provider Surgery | DX: M25.562 Pain in left knee (principal); G89.29 Other chronic pain; Z51.89 Encounter for other specified aftercare | CPT/HCPCS: 97110; 97112; 97140; 97162; 97535 ==

== ENCOUNTER 2024-08-05 11:14 | Emergency (ER) | payer BC, SELFPAY ==
--- OUTSIDE RECORDS SUMMARY | 2024-08-05 11:16 | XMS_ITS | Clinical Summary ---
Author Organization [facility] Address [address] [place] [id number] Care Team Providers Care Punchboard Filling Machine Operator Name Role Phone Rich Dupree MD Primary Care Provider [phone]- [phone] Allergies Active Allergy Reactions Criticality Noted Date Comments Venlafaxine Other - Describe In Comment Field 01/30/2018 Suicidal ideations Sulfa (Sulfonamide Antibiotics) Rash 07/23/2006 Medications blood-glucose meterIndications: Diabetes mellitus type 2, uncontrolled, without complications Dispense meter, test strips, lancets covered by pt ins. E11.65 NIDDM type II, uncontrolled - Test 1 time/day 1 Device 0 01/05/20 16 Active aspirin chewable 81 mg chewable tablet Take 1 tablet by mouth once daily with a meal. 0 12/28/19 17 Active Lantus Solostar U-100 Insulin 100 unit/mL (3 mL) penIndications:Ty pe 2 diabetes mellitus with microalbuminuria, without long-term current use of insulin (HC) Inject 40 units subcutaneous before bedtime. 36 mL 3 09/01/19 24 Active Insulin [place], Disposable, (Pen Needle) 32 gauge x 5/32Indications: Type 2 diabetes mellitus with microalbuminuria, without long-term current use of insulin (HC) As directed. Remove the 2 covers on the insulin pen needle before administering insulin dose. 100 Each 3 11/15/19 24 Active dulaglutide (TRULICITY) 3 mg/0.5 mL subcutaneous penIndications:Ty pe 2 diabetes mellitus with microalbuminuria, without long-term current use of insulin (HC) Inject 3 mg subcutaneous once weekly. 6 mL 3 12/05/19 24 Active blood sugar diagnostic (Blood Glucose Test) stripIndications: Type 2 diabetes mellitus with microalbuminuria, without long-term current use of insulin (HC) Dispense item covered by pt ins. E11.9 NIDDM type II - Test 2 times/day. Reason: New diabetes 200 Each 3 01/06/20 24 Active metFORMIN (GLUCOPHAGE) 1,000 mg tabletIndications :Type 2 diabetes mellitus with microalbuminuria, without long-term current use of insulin (HC) Take 1 Tablet (1,000 mg) by mouth two times daily with meals. 180 Tablet 3 02/23/20 24 Active losartan-hydrochl orothiazide (HYZAAR) 100-12.5 mg tabletIndications :HTN (hypertension) Take 1 Tablet by mouth once daily. 90 Tablet 1 05/24/19 25 Active atorvastatin (LIPITOR) 20 mg tabletIndications :Mixed hyperlipidemia Take 1 Tablet (20 mg) by mouth once daily. 90 Tablet 2 07/25/19 25 Active atorvastatin (LIPITOR) 20 mg tabletIndications :Mixed hyperlipidemia Take 1 Tablet (20 mg) by mouth once daily. 90 Tablet 3 05/24/19 25 025 Discontin ued(*Avai lability/ Formulary change/Co st of medicatio n) Active Problems Problem Noted Date Diagnosed Date [...] Encounters Date Type Department Care Team Description 07/24/2024 Refill [facility] [address] [place] [address] Rich Dupree MD Refill Request (Atorvastatin) 05/24/2024 9:50 AM HOME SPECIALIST Office Visit [facility] [address] [place] [address] Rich Dupree MD Diabetes 05/23/2024 Travel 05/21/2024 [facility] [address] [facility] [address] Rich Dupree MD Refill Request (Losartan Potassium -HC) from Last 3 Months Immunizations Immunization Administration Dates Next Due HepA-HepB (Twinrix) 11/09/2005,08/31/2005 [...] Answer Date Recorded PHQ-2 TOTAL SCORE 0 02/13/2024 Social Connections Answer Date Recorded Do you often feel lonely or isolated from those around you? 0 09/01/2023 Financial Resource Strain Answer Date R ecorded Difficulty of Paying Living Expenses 3 09/01/2023 Difficulty of Paying Living Expenses Not on file 09/01/2023 Food Insecurity Answer Date Recorded Do you worry your food will run out before you are able to buy more? 1 09/01/2023 Transportation Needs Answer Date Record ed Does lack of transportation keep you from medica l appointments? 1 09/01/2023 Does lack of transportation keep you from work, meetings or getting things that you need? 1 09/01/2023 Housing Stability Answer Date Recorded What is your housing situation today? 1 09/01/2023 Utilities Answer Date Recorded Do you have trouble paying f or utilities (for example, heat, electricity, water, phone)? 1 09/01/2023 Comments No Sex and Gender Information Value Date Recorded Sex Assigned at Not on file Legal Sex Female 5:25 AM HOME SPECIALIST Gender Identity Not on file Sexual Orientation Not on file Obstetrics History Para Term AB IAB SAB Ectopic Multiple Livin g Live Births 5 5 Date Outcome GA Total Labor Labor/2nd/3rd Weight Sex Type Anes PTL Cyndi A1 A5 Name Clin Para Para Para Para Para Last Filed Vital Signs Vital Sign Reading Time Taken Comments Blood Pressure 131/82 05/24/2024 10:05 AM HOME SPECIALIST Pulse 80 05/24/2024 10:05 AM HOME SPECIALIST Temperature 36.6 C (97.9 F) 09/30/2021 8:13 AM CDT Respiratory Rate 16 12/27/2016 9:09 AM CDT Oxygen Saturation 98% 05/24/2024 10:05 AM HOME SPECIALIST Inhaled Oxygen Concentration - - Weight 82 kg (180 lb 11.2 oz) 05/24/2024 10:05 A M HOME SPECIALIST Height 169.7 cm (5' 6.81) 02/08/2023 3:15 PM CD T Body Mass Index 28.46 02/08/2023 3:15 PM CDT Plan of Treatment Upcoming Encounters Date Type Department Care Team (Late st Contact Info) Description 11/26/2024 9:05 AM CDT Office Visit [facility] [address] [place] [address] Rihc Dupree MD [address] [place] [address] Health Maintenance Due Date Last Done Comments Pneumococcal series for age 50+ (1 of 2 - PCV) 1984 COVID-19 vaccine series ( season) 2024 Influenza Vaccine (#1) 2024 BMI (ht and wt on same day) for age 18+ 02/09/2024 02/08/2023, 09/29/2022, 09/30/2021, Additional history exists Pap test for age 21-65 12/06/2024 , 12/07/2019, 01/19/2016, Additional history exists Depression screening for age 12+ 02/12/2025 02/13/2024, 09/29/2022, 09/14/2021, Additional history exists Hepatitis B series for Diabetes (3 of 3 - Hep B Twinrix 3-dose series) 02/17/2026 11/09/2005, 08/31/2005 Postponed from 04/11/2006 (Patient discretion) Zoster (shingles) series for age 50+ (1 of 2) 02/17/2026 Postponed from 2015 (Patient discretion) Colonoscopy through age 75 12/08/2028 12/08/2018, Lipids for age 45-75 05/24/2029 05/24/2024, 02/08/2023, 02/11/2022, Additional history exists Tetanus booster 12/06/2029 12/07/2019, 07/23, 05/23/1996 Hepatitis C screening for age 18-79 Completed 04/14/2011 Tdap Completed 12/07/2019, 08/20/2008 HIV for age 15-65 Completed 09/29/2022 Medical Devices Implanted Type Area Pay Clerk Device Identifier Shelf Expiration Date Model / Serial / Lot Implnt Mammary [id number] - [id number] Implanted:Qty: 1 on 11/24/2010 at [facility] Explanted:at [facility] (Quantity not on file) Left: [employer] [id number] # / [id number] / [id number] implnt Mammary [id number] Implanted:Qty: 1 on 11/24/2010 at [facility] Explanted:at [facility] (Quantity not on file) Right: Breast [employer] [id number] # / [id number] / [id number] Procedures Procedure Name Priority Date/Time Associated Diagnosis Comments HEMOGLOBIN A1C MONITORING (POCT) Routine 05/24/2024 9:55 AM HOME SPECIALIST Type 2 diabetes mellitus with microalbuminuria, without long-term current use of insulin (HC) LIPID PANEL Routine 05/24/2024 9:55 AM HOME SPECIALIST Type 2 diabetes mellitus with microalbuminuria, without long-term current use of insulin (HC) LC HIV-1/O/2, 4TH GENERATION Routine 09/29/2022 1:04 PM CDT Screening for HIV (human immunodeficiency virus) RECORDIST THIN PREP PAP SCREEN IMAGED Routine 12/07/2019 1:45 PM CDT Cervical cancer screening COLONOSCOPY 12/08/2018 8:58 AM CDT Screen for colon cancer ANTI HCV Routine 04/14/2011 3:28 PM HOME SPECIALIST Elevated LFTs from Last 3 Months or Most Recently Relevant to Health Maintenance Results * (ABNORMAL) POCT Hemoglobin A1C Monitoring (05/24/2024 9:55 AM HOME SPECIALIST) POC HEMOGLOBIN A1C 6.9(H) <6.0 % OF TOTAL HGB [facility] Comment: Any point of care results exhibiting inconsistency with the patient's clinical status should be repeated using a different testing method. Blood BLOOD SPECIMEN / Unknown 05/24/2024 9:55 AM HOME SPECIALIST 05/24/2024 9:55 AM HOME SPECIALIST us Rich Dupree MD CHEMISTRY Final Resu lt [facility] [address] [place] [address], [facility] [address] [place] [address] * LIPID PANEL (05/24/2024 9:55 AM HOME SPECIALIST) CHOLESTEROL, TOTAL 148 <200 mg/dL [facility] HDL CHOLESTEROL 53 > OR = 50 mg/dL [facility] TRIGLYCERIDES 116 <150 mg/dL [facility] LDL-CHOLESTEROL 75 mg/dL (calc) [facility] Comment: Reference range: <100 Desirable range <100 mg/dL for primary prevention; <70 mg/dL for patients with CHD or diabetic patients with > or = 2 CHD risk factors. LDL-C is now calculated using the Coleman-Sage calculation, which is a validated novel method providing better accuracy than the Friedewald equation in the estimation of LDL-C. Coleman SS et al. JUAN CARLOS. 2013;310(19): 5428-2612 (http://education.[employer]/faq/PXQ052) CHOL/HDLC RATIO 2.8 <5.0 (calc) [facility] NON HDL CHOLESTEROL 95 <130 mg/dL (calc) [facility] Comment: For patients with diabetes plus 1 major ASCVD risk factor, treating to a non-HDL-C goal of <100 mg/dL (LDL-C of <70 mg/dL) is considered a therapeutic option. Blood BLOOD SPECIMEN / Unknown 05/24/2024 9:55 AM HOME SPECIALIST 05/24/2024 9:56 AM HOME SPECIALIST Rich Dupree MD CHEMISTRY Final Resu lt [facility] [address] [place] [address], [facility] [address] [place] [address] * LC HIV-1/O/2, 4TH GENERATION (09/29/2022 1:04 PM CDT) [facility] HIV Scr 4th Gen Non Reactive Non Reactive 10/01/2022 10:[address] [facility] ([facility]) Comment: HIV Negative HIV-1/HIV-2 antibodies and HIV-1 p24 antigen were NOT detected. There is no laboratory evidence of HIV infection. Blood BLOOD SPECIMEN / Unknown Venipuncture / Unknown 09/29/2022 1:04 PM CDT 09/29/2022 1:08 PM CDT Narrative [facility] ([facility]) - 10/01/2022 10:06 PM CDT Performed at: [address] [place] [id number] Electrical High Tension Tester: Jesse Price MD, Phone: [phone] us [facility] Final Res ult [facility] ([facility]) [address] [place] [address], * RECORDIST THIN PREP PAP SCREEN IMAGED (12/07/2019 1:45 PM CDT) Case Report Gynecologic Cytology Report Case: [id number] Authorizing Provider: Rich Dupree MD Collected: 12/07/2019 1345 Ordering Location: [facility] Received: 12/07/2019 1421 Clinic First Screen: Jamie Soto Specimen: RECORDIST ThinPrep Vial Screening, Cervical 12/13/2019 9:04 AM CDT [facility] INTERPRETATION/ RESULT NEGATIVE FOR INTRAEPITHELIAL LESION OR MALIGNANCY (NIL) (none) 12/13/2019 9:04 AM CDT [facility] IMEN ADEQUACY Satisfactory for evaluation Endocervical component present Scant cellularity 12/13/2019 9:04 AM CDT [facility] HPV REQUEST HPV and PAP 12/13/2019 9:04 AM CDT [facility] Date of LMP 201012/13/2019 9:04 AM CDT [facility] Last Pap Date 01/19/16 12/13/2019 9:04 AM CDT [facility] Last Pap Result NIL 0 9:04 AM CDT [facility] Abnormal Pap or Rigby Bx in last 5 years No 12/13/2019 9:04 AM CDT [facility] Menstrual Status Postmenopausal 12/13/2019 9:04 AM CDT [facility] Rigby Bx Done Today No 12/13/2019 9:04 AM CDT [facility] Additional Information None given 12/13/2019 9:04 AM CDT [facility] Comment: Cytology is screened at [facility] - [address], [place] [address] and [facility] - [address] [place] [address], [place] [address] and [facility] - [address] [place] [address] Interpreted at [facility] - [address], [place] [address] Automated Review Successful 12/13/2019 9:04 AM CDT [facility] Comment:Specimen processed s uccessfully by automated metallurgist helper device, ThinPrep Imaging System, [employer] ANCILLARY TESTING RECORDIST HPV Ordered, Please see separate report 12/13/2019 9:04 AM CDT [facility] Note The pap test is a screening technique, not a diagnostic procedure. It is used primarily to screen for squamous cancers and precursor lesions. Published studies have shown that it is subject to both false negative and false positive results. The pap test should not be used as the sole means to diagnose or exclude pre-malignant and malignant lesions. 12/13/2019 9:04 AM CDT [facility] Other (Cervical) Non-Blood / Unknown 12/07/2019 1:45 PM CDT 12/07/2019 2:21 PM CDT us Rich Dupree MD PATHOLOGY/CYTOLOGY Final R esult [facility] [address] [place] [address], [place] * COLONOSCOPY (12/08/2018 8:58 AM CDT) 12/08/2018 8:58 AM CDT Narrative Transcriptions Coleman Estrella MD - 12/08/2018 9:46 AM CDT Patient Name: Anu Winter Procedure Date: 12/08/2018 Gender: Female Date of : 1965 Admit Type: Outpatient Procedure: Colonoscopy Proceduralist: Coleman Estrella MD , Faye Leary (Nurse) Indications/Pre-Op Diagnosis: Screening for colorectal malignant neoplasm, This is the patient's first colonoscopy Medications: Fentanyl 100 micrograms IV, Midazolam 2 mgIV Procedure Description: The patient had risks, benefits and alternatives explained to andgave informed consent. The patient had a stable cardiopulmonary status and judged an adequate candidate for conscious sedation. The Colonoscope was passed through the anus and advanced to thececum, identified by appendiceal orifice and ileocecal valve. Thecolonoscopy was performed without difficulty. The patient tolerated the procedure well. The quality of the bowel preparation was good. The ileocecal valve, appendiceal orifice, and rectum were photographed. Complications: No immediate complications. Estimated Blood Loss & Specimen: Estimated blood loss: none. Specimen collected - None Findings: The perianal and digital rectal examinations were normal. There was a medium-sized lipoma, in the ascending colon. The exam was otherwise without abnormality on direct and retroflexion views. Impressions/Post-Op Diagnosis: - Medium-sized lipoma in the ascending colon. - The examination was otherwise normal on direct and retroflexionviews. - No specimens collected. Recommendation: - Patient has a contact number available for emergencies. The signsand symptoms of potential delayed complications were discussed with the patient. Return to normal activities tomorrow. Written discharge instructions were provided to the patient. - Resume previous diet. - Continue present medications. - Repeat colonoscopy in 10 years for screening purposes. Moderate Sedation: Moderate (conscious) sedation was administered by the endoscopy nurse and supervised by the endoscopist. The following parameters were monitored: oxygen saturation, heart rate, respiratory rate, blood pressure, adequacy of pulmonary ventilation and reponse to care. Please refer to the patien'ts medical record flowsheets and nursing notes for moderate sedation details. Total physician intraservice time was 17 minutes. Coleman Estrella MD 12/08/2018 9:46:37 AM This report has been signed electronically. Note Initiated On: 12/08/2018 8:58 AM Procedure Code(s): --- Professional --- 90941, Colonoscopy, flexible; diagnostic, including collection of specimen(s) bybrushing or washing, when performed (separateprocedure) Diagnosis Code(s): --- Professional --- Z12.11, Encounter for screening formalignant neoplasm of colon D17.5, Benign lipomatous neoplasm of intra-abdominal organs CPT copyright 2018 [employer]. All rights reserved. The codes documented in this report are preliminary and upon manager biologics reviewmay be revised to meet current compliance requirements. Scope In: 9:26:23 AM Scope Withdrawal Time 0 hours 10 minutes 42 seconds Scope Out: 9:41:16 AM Coleman Estrella MD PROCEDURE ORD Final Res ult * ANTI HCV (04/14/2011 3:28 PM HOME SPECIALIST) ANTI HCV Non-reacti ve [facility] Blood specimen (specimen) BLOOD SPECIMEN / Unknown 04/14/2011 3:28 PM HOME SPECIALIST 04/14/2011 3:09 PM HOME SPECIALIST Coleman Estrella MD SEND OUTS Final Res ult [facility] INTERNAL ZIP [phone] [address] from Last 3 Months or Most Recently Relevant to Health Maintenance Insurance * Guarantor: Anu Winter Account Type Relation to Patient Date of Phone Billing Address Personal/Family Self 1965 [phone] (Work) [address] [place] [address] BLUE CROSS OF NON-DC-ITS Advance Directives * Full Code (Latest Code Status on File) Date Activated Date Inactivated Comments 06/11/2013 10:13 AM 06/12/2013 2:26 AM * Full Code Date Activated Date Inactivated Comments 11/24/2010 7:34 AM 11/24/2010 12:53 PM * Full Code Date Activated Date Inactivated Comments 11/24/2010 6:05 AM 11/24/2010 7:34 AM Care Teams Punchboard Filling Machine Operator Relationship Specialty Start Date End Date Rich Dupree MD [address] [place] [address] PCP - General Family Practice 10/09/18
--- OUTSIDE RECORDS SUMMARY | 2024-08-05 11:17 | XMS_ITS | Data Portability ---
Author Organization [facility], [facility] Address [address] [place] [address] Care Team Providers Care Manager Life Insurance Name Role Phone TRAV SHARPE Primary Care Provider Assessment Encounter Date Assessment Date Assessment LastModified by Organization Details LastModified Time 02/03/2022 02/03/2022 This is a 56 yea r old female who is here for the evaluation and management of nephrolithiasis [email or web address] Not available 02/03/2022 12:24:29 Plan of Treatment Reminders Order Date Submit Date Provider Last Modified By Organization Details Last Modified Time Details Appointments None recorded. Lab urinalysis , dipstick 2021 [facility], [address], [address], [place], [address], 12:18:41 culture, urine 2021 [facility], [address], [address], [place], [address], 11:42:46 Referral None recorded. Procedures None recorded. Surgeries None recorded. Imaging CT, abdomen + pelvis, w/o contrast - Please call patient to schedule 2021 [facility], [address] [facility], [address], [place], [address], 15:32:58 Medication Orders None recorded. Patient TargetsNo targets recorded. Patient Instructions Encounter Date Encounter Id Patient Instructions Last Modified By Organization Details Last Modified Time 02/03/2022 [id number] Hx of nephrolithiasis: - I will arrange [...] Name Description Value Unit Range Abnormal Flag Note LastModifiedBy Organization Detail LastModifiedTime 02/04/2002/03/2022 UA DIP CS ADVAN TUS color -advantus Yellow yellow Not Available [facility] [address] [facility] [address], [place], [address], 02/03/2022 12:18:41 02/04/20 22 02/03/2022 UA DIP CS ADVAN TUS appearance -advantus Clear clear Not Available [facility] [address] [facility] [address], [place], [address], 02/03/2022 12:18:41 02/04/20 22 02/03/2022 UA DIP CS ADVAN TUS glucose -advantus Negati ve mg/dL negati ve Not Available [facility] [address] [place] [address] [address], [place], [address], 02/03/2022 12:18:41 02/04/20 22 02/03/2022 UA DIP CS ADVAN TUS bilirubin -advantus Negati ve negati ve Not Available [facility] [address] [place] [address] [address], [place], [address], 02/03/2022 12:18:41 02/04/20 22 02/03/2022 UA DIP CS ADVAN TUS ketones -advantus Negati ve mg/dL negati ve Not Available [facility] [address] [place] [address] [address], [place], [address], 02/03/2022 12:18:41 02/04/20 22 02/03/2022 UA DIP CS ADVAN TUS sp. gravity -advantus <=1.00 5 1.010- 1.025 Not Available [facility] [address] [place] [address] [address], [place], [address], 02/03/2022 12:18:41 02/04/20 22 02/03/2022 UA DIP CS ADVAN TUS pH -advantus 5.0 5.0-8. 0 Not Available [facility] [address] [place] [address] [address], [place], [address], 02/03/2022 12:18:41 02/04/20 22 02/03/2022 UA DIP CS ADVAN TUS protein -advantus Negati ve mg/dL negati ve Not Available [facility] [address] [place] [address] [address], [place], [address], 02/03/2022 12:18:41 02/04/20 22 02/03/2022 UA DIP CS ADVAN TUS urobilinogen -advantus 0.2 normal Not Available [facility] [address] [place] [address] [address], [place], [address], 02/03/2022 12:18:41 02/04/20 22 02/03/2022 UA DIP CS ADVAN TUS nitrites -advantus Negati ve negati ve Not Available [facility] [address] [facility] [address], [place], [address], 02/03/2022 12:18:41 02/04/20 22 02/03/2022 UA DIP CS ADVAN TUS blood -advantus Modera te negati ve abnormal Not Available [facility] [address] [facility] [address], [place], [address], 02/03/2022 12:18:41 02/04/20 22 02/03/2022 UA DIP CS ADVAN TUS leukocytes -advantus Trace negati ve abnormal Not Available [facility] [address] [facility] [address], [place], [address], 02/03/2022 12:18:41 02/04/20 22 02/03/2022 UA DIP CS ADVAN TUS performed by Caitlin Kinsey Not Available [facility] [address] [facility] [address], [place], [address], 02/03/2022 12:18:41 02/04/20 22 02/03/2022 UA DIP CS ADVAN TUS total urine volume (mL) 80 /mL ----- ----- ----- ----- ----- ----- ----- ----- ----- ----- ----- ----- ----- ----- ---- *Plea se note the follo wing minim um quant ities for addit ional urine testi ng: - Atypi cals: 3 mL - Cytol ogy: 20 mL - GC/CH : 2 mL - FISH: 30 mL - Atypi cals w/ GC/CH : 5 mL - Cytol ogy PLUS FISH: 50 mL - Urine Cultu re: 3 mL ----- ----- ----- ----- ----- ----- ----- ----- ----- ----- ----- ----- ----- ----- ---- Not Available [facility] [address] [place] [address] [address], [place], [address], 02/03/2022 12:18:41 02/04/20 22 02/03/2022 UA MICRO SCOPI C U-WBC 2 - 5 [hpf] 0 - 2 abnormal Not Available [facility] [address] [place] [address], [place], [address], 02/03/2022 12:18:46 02/04/20 22 02/03/2022 UA MICRO SCOPI C U-RBC 0 - 2 [hpf] 0 - 2 Not Available [facility] [address] [place] [address], [place], [address], 02/03/2022 12:18:46 02/04/20 22 02/03/2022 UA MICRO SCOPI C bacteria Small [hpf] negati ve abnormal Not Available [facility] [address] [place] [address], [place], [address], 02/03/2022 12:18:46 02/04/20 22 02/03/2022 UA MICRO SCOPI C squamous epi Small /lpf negati ve,sma ll Not Available [facility] [address] [place] [address], [place], [address], 02/03/2022 12:18:46 02/04/20 22 02/03/2022 URINE CULTU RE final report Microb iology result s SOURC E Void KNOWN ALLER GIES see chart TREAT MENT see chart MEDIA PLATE D AT: Media plate d on 2021 @ 12:14 PM COLON Y COUNT 20,00 0-50, 000 cfu/m l RESUL T Mixed Growt h,Mul tiple Gram Posit teresa Morph ologi c Types ,No Furth er Vaibhav p Not Available [facility] [address], [place], [address], 02/05/2022 11:42:46 02/17/20 22 02/21/2022 STONE DESTIN SIS source COMMEN T Left Urete r Not Available [facility] ([facility]) [address] [place], [address], 02/21/2022 12:07:23 02/17/20 22 02/21/2022 STONE DESTIN SIS color GAN Not Available [facility] ([facility]) [address] [place], [address], 02/21/2022 12:07:23 02/17/20 22 02/21/2022 STONE DESTIN SIS size <1 mm Too small to measu re. Not Available [facility] ([facility]) [address] [place], [address], 02/21/2022 12:07:23 02/17/20 22 02/21/2022 STONE DESTIN SIS weight <1 mg Too small to weigh Not Available [facility] ([facility]) [address] [place], [address], 02/21/2022 12:07:23 02/17/20 22 02/21/2022 STONE DESTIN SIS composition COMMEN T Perce ntage (Repr esent s the % compo sitio n) Not Available [facility] ([facility]) [address] [place], [address], 02/21/2022 12:07:23 02/17/20 22 02/21/2022 STONE DESTIN SIS calcium oxalate monohydrate 40 % Not Available [facility] ([facility]) [address] [place], [address], 02/21/2022 12:07:23 02/17/20 22 02/21/2022 STONE DESTIN SIS calcium oxalate dihydrate 60 % Not Available [facility] ([facility]) [address] [facility], [place], [address], 02/21/2022 12:07:23 02/17/20 22 02/21/2022 STONE DESTIN SIS hydroxyapati te DEPILATORY PAINTER Not Available [facility] ([facility]) [address] [facility], [place], [address], 02/21/2022 12:07:23 02/17/20 22 02/21/2022 STONE DESTIN SIS carbonate apatite DEPILATORY PAINTER Not Available [facility] ([facility]) [address] [facility], [place], [address], 02/21/2022 12:07:23 02/17/20 22 02/21/2022 STONE DESTIN SIS cahpo4 (brushite) DEPILATORY PAINTER Not Available [facility] ([facility]) [address] [place], [address], 02/21/2022 12:07:23 02/17/20 22 02/21/2022 STONE DESTIN SIS calcium phosphate DEPILATORY PAINTER Not Available [facility] ([facility]) [address] [facility], [place], [address], 02/21/2022 12:07:23 02/17/20 22 02/21/2022 STONE DESTIN SIS calcium carbonate DEPILATORY PAINTER Not Available [facility] ([facility]) [address] [place], [address], 02/21/2022 12:07:23 02/17/20 22 02/21/2022 STONE DESTIN SIS mg nh4 PO4 (struvite) DEPILATORY PAINTER Not Available [facility] ([facility]) [address] [place], [address], 02/21/2022 12:07:23 02/17/20 22 02/21/2022 STONE DESTIN SIS mghpo4 (newberyite) DEPILATORY PAINTER Not Available [facility] ([facility]) [address] [place], [address], 02/21/2022 12:07:23 02/17/20 22 02/21/2022 STONE DESTIN SIS uric acid DEPILATORY PAINTER Not Available [facility] ([facility]) [address] [place], [address], 02/21/2022 12:07:23 02/17/20 22 02/21/2022 STONE DESTIN SIS uric acid dihydrate DEPILATORY PAINTER Not Available [facility] ([facility]) [address] [place], [address], 02/21/2022 12:07:23 02/17/20 22 02/21/2022 STONE DESTIN SIS ammonium acid urate DEPILATORY PAINTER Not Available [facility] ([facility]) [address] [place], [address], 02/21/2022 12:07:23 02/17/20 22 02/21/2022 STONE DESTIN SIS sodium acid urate DEPILATORY PAINTER Not Available [facility] ([facility]) [address] [place], [address], 02/21/2022 12:07:23 02/17/20 22 02/21/2022 STONE DESTIN SIS 2,8 dihydroxyade nine DEPILATORY PAINTER Not Available [facility] ([facility]) [address] [place], [address], 02/21/2022 12:07:23 02/17/20 22 02/21/2022 STONE DESTIN SIS xanthine DEPILATORY PAINTER Not Available [facility] ([facility]) [address] [place], [address], 02/21/2022 12:07:23 02/17/20 22 02/21/2022 STONE DESTIN SIS cystine DEPILATORY PAINTER Not Available [facility] ([facility]) [address] [place], [address], 02/21/2022 12:07:23 02/17/20 22 02/21/2022 STONE DESTIN SIS cholesterol DEPILATORY PAINTER Not Available [facility] ([facility]) [address] [facility], [place], [address], 02/21/2022 12:07:23 02/17/20 22 02/21/2022 STONE DESTIN SIS calcium bilirubinate DEPILATORY PAINTER Not Available [facility] ([facility]) [address] [facility], [place], [address], 02/21/2022 12:07:23 02/17/20 22 02/21/2022 STONE DESTIN SIS bilirubin DEPILATORY PAINTER Not Available [facility] ([facility]) [address] [place], [address], 02/21/2022 12:07:23 02/17/20 22 02/21/2022 STONE DESTIN SIS calcium palmitate DEPILATORY PAINTER Not Available [facility] ([facility]) [address] [place], [address], 02/21/2022 12:07:23 02/17/20 22 02/21/2022 STONE DESTIN SIS calcium stearate DEPILATORY PAINTER Not Available [facility] ([facility]) [address] [facility], [place], [address], 02/21/2022 12:07:23 02/17/20 22 02/21/2022 STONE EDSTIN SIS triamterene DEPILATORY PAINTER Not Available [facility] ([facility]) [address] [facility], [place], [address], 02/21/2022 12:07:23 02/17/20 22 02/21/2022 STONE DESTIN SIS drug or metabolite DEPILATORY PAINTER Not Available [facility] ([facility]) [address] [place], [address], 02/21/2022 12:07:23 02/17/20 22 02/21/2022 STONE DESTIN SIS dried blood DEPILATORY PAINTER Not Available [facility] ([facility]) [address] [place], [address], 02/21/2022 12:07:23 02/17/20 22 02/21/2022 STONE DESTIN SIS cellular material DEPILATORY PAINTER Not Available [facility] ([facility]) [address] [facility], [place], [address], 02/21/2022 12:07:23 02/17/20 22 02/21/2022 STONE DESTIN SIS other component(s) DEPILATORY PAINTER Not Available [facility] ([facility]) [address] [facility], [place], [address], 02/21/2022 12:07:23 02/17/20 22 02/21/2022 STONE DESTIN SIS comment DEPILATORY PAINTER Not Available [facility] ([facility]) [address] [facility], [place], [address], 02/21/2022 12:07:23 02/17/20 22 02/21/2022 STONE DESTIN SIS comment COMMEN T Calcu isma recei lasha in liqui d. Wet calcu li must be dried befor e destin sis, which delay s repor ting of resul ts. Leavi ng calcu li in liqui d (such as water , salin e, blood , urine ) may lead to jiménez es in compo sitio n. Not Available [facility] ([facility]) [address] [facility], [place], [address], 02/21/2022 12:07:23 02/17/20 22 02/21/2022 STONE DESTIN SIS photo TNP Test not perfo rmed No photo avail able Not Available [facility] ([facility]) [address] [facility], [place], [address], 02/21/2022 12:07:23 02/17/20 22 02/21/2022 STONE DESTIN SIS comment: COMMEN T Physi zohreh quest ions regar ding Calcu li Destin sis conta ct [facility] at: [phone]. Not Available [facility] ([facility]) [address] [facility], [place], [address], 02/21/2022 12:07:23 02/17/20 22 02/21/2022 STONE DESTIN SIS please note: COMMEN T Calcu li jabari t will follo w via compu ter, mail or couri er awa sanabria. Not Available [facility] ([facility]) [address] [facility], [place], [address], 02/21/2022 12:07:23 02/17/20 22 02/21/2022 STONE DESTIN SIS disclaimer: CHUN Sheffield This test was devel oped and its perfo rmanc e cornelia cteri stics deter mined by [employer]. It has not been clear ed or appro lasha by the Food and Drug Admin istra tion. Not Available [facility] ([facility]) [address] [facility], [place], [address], 02/21/2022 12:07:23 02/17/20 22 02/21/2022 STONE DESTIN SIS pdf . Not Available [facility] ([facility]) [address] [facility], [place], [address], 02/21/2022 12:07:23 02/17/20 22 02/16/2022 STONE DESTIN SIS-L C source COMMEN T Left Urete r Not Available [facility] [address] [facility] [address], [place], [address], 02/22/2022 14:48:34 02/17/20 22 02/16/2022 STONE DESTIN SIS-L C color GAN Not Available [facility] [address] [facility] [address], [place], [address], 02/22/2022 14:48:34 02/17/20 22 02/16/2022 STONE DESTIN SIS-L C size <1 mm Too small to measu re. Not Available [facility] [address] [facility] [address], [place], [address], 02/22/2022 14:48:34 02/17/20 22 02/16/2022 STONE DESTIN SIS-L C weight <1 mg Too small to weigh Not Available [facility] [address] [facility] [address], [place], [address], 02/22/2022 14:48:34 02/17/20 22 02/16/2022 STONE DESTIN SIS-L C composition COMMEN T Perce ntage (Repr esent s the % compo sitio n) Not Available [facility] [address] [place] [address], [place], [address], 02/22/2022 14:48:34 02/17/20 22 02/16/2022 STONE DESTIN SIS-L C calcium oxalate monohydrate 40 % Not Available [facility] [address] [place] [address], [place], [address], 02/22/2022 14:48:34 02/17/20 22 02/16/2022 STONE DESTIN SIS-L C calcium oxalate dihydrate 60 % Not Available [facility] [address] [place] [address], [place], [address], 02/22/2022 14:48:34 02/17/20 22 02/16/2022 STONE DESTIN SIS-L C comment COMMEN T Calcu isma recei lasha in liqui d. Wet calcu li must be dried befor e destin sis, which delay s repor ting of resul ts. Leavi ng calcu li in liqui d (such as water , salin e, blood , urine ) may lead to jiménez es in compo sitio n. Not Available [facility] [address] [place] [address] [address], [place], [address], 02/22/2022 14:48:34 02/17/20 22 02/16/2022 STONE DESTIN SIS-L C photo TEST NOT PERFOR MED. Test not perfo rmed No photo avail able Not Available [facility] [address] [place] [address] [address], [place], [address], 02/22/2022 14:48:34 02/17/20 22 02/16/2022 STONE DESTIN SIS-L C comment: COMMEN T Physi zohreh quest ions regar ding Calcu li Destin sis conta ct [facility] at: [phone]. Not Available [facility] [address] [facility] [address], [place], [address], 02/22/2022 14:48:34 02/17/20 22 02/16/2022 STONE DESTIN SIS-L C please note: COMMEN T Calcu li repor t will follo w via compu ter, mail or couri er awa sanabria. Not Available [facility] [address] [facility] [address], [place], [address], 02/22/2022 14:48:34 02/17/20 22 02/16/2022 STONE DESTIN SIS-L C disclaimer: SARAHJEFF Sheffield This test was devel oped and its perfo rmanc e cornelia cteri stics deter mined by [facility]. It has not been clear ed or appro lasha by the Food and Drug Admin istra tion. Not Available [facility] [address] [facility] [address], [place], [address], 02/22/2022 14:48:34 02/17/20 22 02/16/2022 STONE DESTIN SIS-L C pdf . Not Available [facility] [address] [facility] [address], [place], [address], 02/22/2022 14:48:34 01/06/20 22 09/30/2021 CT, abdom en + pelvi s, w/o contr ast No observ ation record ed. [email or web address] Not Available 2021 14:02:45 02/09/20 22 02/05/2022 CT, abdom en + pelvi s, w/o contr ast No observ ation record ed. [email or web address] [facility] [address] [facility] [address], [place], [address], 02/10/2022 10:14:51 02/09/20 22 02/05/2022 CT, abdom en + pelvi s, w/o contr ast No observ ation record ed. [email or web address] [facility] [address], [place], [address], 02/15/2022 16:28:30 Result Notes None recorded. Problems Name Problem SNOMED Code Status Onset Date Resolution Date Notes Provider Name and Address Organization Details Recorded Time Hypercholester olemia 13982067 Active Jammie Goodpaste r null, [facility] 2 11:52:45 Hypertensive disorder 55491259 Active Jammie Goodpaste r null, [facility] 2 11:52:57 History of calculus of kidney 242156060 Active Jammie Goodpaste r null, [facility] 2 11:53:08 Diabetes mellitus 95092796 Active Jammie Goodpaste r null, [facility] 2 11:53:17 Malignant neoplastic disease 099815686 Active Jammie Goodpaste r null, [facility] 2 11:53:26 Problem Notes None recorded. Procedures Surgical History Date Name Laterality Status Provider Name and Address Organization Details Recorded Time 10/22/19 19 Diagnostic colonoscopy completed Not Available Health Note 01/11/2022 12:44:30 delivery completed Not Available Health Note 01/11/2022 12:44:30 Imaging Results Imaging Date Name Status LastModified by [facility] Details LastModified Time 09/30/2021 CT, abdomen + pelvis, w/o contrast completed [email or web address] Information not available 01/06/2022 14:02:45 02/05/2022 CT, abdomen + pelvis, w/o contrast completed [email or web address] [facility] [address], [place], [address], 02/10/2022 10:14:51 02/05/2022 CT, abdomen + pelvis, w/o contrast completed [email or web address] [facility] [address], [place], [address], 02/15/2022 16:28:30 Procedure Notes None recorded. Medical Equipment None Reported. Allergies Allergen ID Allergen Name Allergen Category Reaction Reaction Severity Criticality Documentation Date Start Date Code Code System Note Provider Name and Address Organization Details Recorded Time 143321 Substance with sulfonami de structure and antibacte rial mechanism of action (substanc e) medicatio n Not available Not available Not available 02/03/2022 [id number] SNOMED Not Available Not Available Not Available Medications Name Sig Start Date Stop Date [...] available 01/11/2022 Have You Traveled Outside Of [place] In The Past 30 Days? No [email or web address] Information not available 01/11/2022 Race Na Information not available 02/03/2022 Preferred Language Yi Information not available 02/03/2022 Number Of Pregnancies [...] Provided? 02/03/2022 Information not available 02/03/2022 Sex: Unknown Functional Status None recorded. Mental Status None recorded. Family History Relationship Description Onset Age of this Age Resolved Age Notes LastModified by Organization Details LastModified Time Mother Family history of neoplasm of ovary [email or web address] Not available 2021 12:44:29 Father Family history of malignant neoplasm of prostate 45 [email or web address] Not available 2021 12:44:29 Medical History Condition Response Sexually Transmitted Infection N Diabetes Y Other N Bleeding Disorder N High Blood Pressure Y Kidney Stones Y High Cholesterol Y GERD/Acid Reflux N Heart Disease N Cancer Y Lung Disease N Depression Y Gynecological History Statement/Question Response If Post Menopausal, Age at Menopause 44 Leaking urine with intercourse N Hormone Therapy N Sexually Active? Y Pain with intercourse N Obstetrics History GPAL:G 0 P 0 0 0 0 Immunizations Vaccine Type Date Status Note Provider Nam e and Address Organization Details Recorded Time Tdap 12/07/2019 completed Jammie hernandez [facility] 02/03/2022 11:50:33 Hep A-Hep B 08/31/2005 [facility] Jammie hernandez [facility] 02/03/2022 11:50:33 Hep A-Hep B 11/09/2005 completed Jammie hernandez [facility] 02/03/2022 11:50:33 Tdap 08/20/2008 [facility] Jammie hernandez [facility] 02/03/2022 11:50:33 Past Encounters Encounter ID Performer Location Encounter Start Date Encounter Closed Date Diagnosis/Indication Diagnosis SNOMED-CT Code Diagnosis ICD10 Code Diagnosis Note [id number] MATIAS Chaudhary [facility] [address] [facility] [place] [facility] e [address] [place] [phone] 02/03/2022 11:43:44 02/03/2022 13:04:33 Kidney stone 20209582 N20.0 Health Concerns Section Related Observation LastModified by Organization Detai ls LastModified Time None Recorded Concern Status LastModified by Organization Details LastModified Time None Recorded Advance Directives Directive None Recorded Payers Encounter Date Sequence Insurance Name Policy Number Policy Sutherland Covered Member ID Sutherland Member ID Guarantor Name 02/03/2022 1 [facility] [id number] Jose Winter [id number] Anu Velez Moy Notes Date Note Type Note Provider Name and Address Organization Details Recorded Time 02/03/2022 text/html This is a 56 yea r old [...] They report a prior history of stone disease.There is family history of nephrolithiasis. MATIAS Burton [address] [facility],[address], [place], [address], [facility] 02/03/2022 12:37:19 OBGyn Episode No OBEpisode recorded.
--- OUTSIDE RECORDS SUMMARY | 2024-08-05 11:17 | XMS_ITS | Patient Health Record ---
Author Organization [facility] Address [address] [place] [address] Care Team Providers Care Assorter Laundry Name Role Phone Mayank Morelos MD Primary Care Provider Allergies Allergen (clinical drug ingredient) Drug/Non Drug Allergy documented on EMR Reaction Allergy Type Onset Date Status Effexor Suicidal ideation Drug Allergy Active Sulfonamides Unknown Drug Allergy Acti ve Reason For Referral No Information Medications Medication SIG (Take, Route, Frequency, Duration) Notes Start Date End Date Status metFORMIN HCl 500 MG 1 tablet with a matias l Orally twice a day for 90 days Active Accu-Chek Eula w/Device as directed devante ly for 90 days 10/09/2018 Active Aspirin 81 81 MG 1 tablet Orally Once a day for 30 day(s) Active Social History Tobacco Use: Social History Observation Description Date Details (start date - stop date) Never Smoker NA - NA Tobacco Use/Smoking Question Answer Notes Are you a nonsmoker Problems Problem Type SNOMED Code ICD Code Onset Dates Problem Status W/U Status Risk Notes Problem Essential hypertension (38580352) Essential (primary) hypertension (I10) Active confirmed Problem Type II diabetes mellitus without complication (360218061) Type 2 diabetes mellitus without complications (E11.9) Active confirmed Problem Hyperlipidemia (32425871) Other hyperlipidemia (E78.49) Active confirmed Plan Of Treatment No Information Insurance Providers Payer Name Payer Address Payer Phone Subscriber Number Group Number Insured Name Patient Relationship to Insured Coverage Start Date Coverage End Date [place] [id number] [place] [address] [address] [place], [place] [id number] Moy, Jose Spouse - patient is the spouse of the insured 9 Medical (General) History Medical History History ICD Code Obesity Breast cancer DM2 Hyperlipidemia Depression Renal calculi, 06/2010
[2024-08-05 11:18] VITALS: BP 137/87; PULSE 76; RESP 18; TEMP 36.1; O2SAT 100; BMI 27.4
--- NOTE | 2024-08-05 11:27 | CRLHL7_ITS ---
For Patients: As a result of the Century Cures Act, medical imaging exams and procedure reports are released immediately into your electronic medical record. You may view this report before your referring provider. If you have questions, please contact your health care provider. Indication: LLQ PAIN , NAUSEA AND VOMITING HX OF STONES Technique: CT abdomen/pelvis with IV contrast, 85 mL Isovue 370 Comparison: CT chest/abdomen/pelvis on February 18, 2011 Findings: Lower thorax: Trace medial right basilar atelectasis. Abdomen/pelvis: Diffuse hepatic steatosis. Simple appearing subcentimeter hepatic cysts. No suspicious hepatic lesions. The gallbladder and biliary system are unremarkable. The spleen, pancreas, and bilateral adrenal glands are unremarkable in appearance. The kidneys are normal in size and perfused in a normal fashion. Sequela of remote ruptured simple cyst seen along the medial, lower pole of the right kidney. There is an obstructing 6 millimeter stone seen in the proximal left ureter causing mild left-sided hydroureteronephrosis. The bladder is unremarkable in appearance. The uterus is unremarkable in appearance. No suspicious adnexal lesions. There is no evidence of bowel obstruction or inflammation. The appendix is normal. No free air, free fluid, or abscess. No abdominopelvic lymphadenopathy. The vasculature is unremarkable. Soft tissue/musculoskeletal: Bilateral breast implants. Diastasis recti with small fat containing umbilical hernia. The bones are unremarkable in appearance. Impression: 1. Obstructing 6 millimeter stone seen in the proximal left ureter causing mild left-sided hydroureteronephrosis. 2. Additional incidental findings as detailed above. Please note that all CT scans at this facility use dose modulation, iterative reconstruction, and/or weight-based dosing when appropriate to reduce radiation dose to as low as reasonably achievable. Dictated by Yuriy Juares MD @ 08/05/2024 12:43:28 PM (Electronically Signed)
--- NOTE | 2024-08-05 11:32 | ED_ITS ---
HPI - Abdominal Pain General Chief Complaint: Abdominal Pain Stated Complaint: low left abdomen pain Time Seen by Provider: 08/05/24 11:16 History of Present Illness HPI narrative: Patient is a 59-year-old woman who had the abrupt onset several hours ago of nausea vomiting and left-sided abdominal pain. The pain localizes the left lower quadrant. She has not vomited any blood and has had no diarrhea. She states the pain is 8/10 and does not radiate. Patient has had no recent travel no recent sick contacts. She has had no fevers no chills no chest pain no shortness of breath. She is brought into the ER by her . No change in her medications recently. Related Data Home Medications ?Medication ?Instructions ?Recorded ?Confirmed atorvastatin 20 mg tablet 20 mg PO DAILY 06/24/23 08/05/24 losartan 100 1 tab PO DAILY 06/24/23 08/05/24 mg-hydrochlorothiazide 12.5 mg tablet metformin 1,000 mg tablet 1,000 mg PO BID 06/24/23 08/05/24 dulaglutide 1.5 mg/0.5 mL 1.5 mg subcut 08/05/24 subcutaneous pen injector (Trulicity) Previous Rx's ?Medication ?Instructions ?Recorded insulin glargine 100 unit/mL (3 8 unit (0.08 mL) subcut QPM #3 mL 06/24/23 mL) subcutaneous pen (Lantus Solostar U-100 Insulin) hydrocodone 5 mg-acetaminophen 325 1 tab PO Q8H PRN pain #10 tabs 08/05/24 mg tablet ondansetron 4 mg disintegrating 4 mg PO Q8H PRN nausea and 08/05/24 tablet vomiting #20 tabs tamsulosin 0.4 mg capsule (Flomax) 0.4 mg PO DAILY #10 caps 08/05/24 Allergies Allergy/AdvReac Type Severity Reaction Status Date / Time Sulfa (Sulfonamide Allergy Unknown Verified 06/24/23 19:40 Antibiotics) Review of Systems Status of ROS Reports: 10 or more systems reviewed and unremarkable except as noted in History and below [facility] Social History Smoking Status: Never smoker Do you use any of these nicotine containing products: None Second hand tobacco smoke exposure: No How often do you have a drink containing alcohol: never AUDIT-C Alcohol total score: 0 Non-prescribed substance use: denies use service: No Exam Narrative: Exam Narrative: EXAM GENERAL: Patient appears acutely distressed. EYES: No scleral icterus. LYMPH: No supraclavicular or cervical lymphadenopathy. SKIN: Visible skin seen during exam normal or with benign process only. EXT: No dependent lower extremity pedal edema. HEART: Regular rate and rhythm with no murmurs, rubs, or gallops. LUNGS: Clear to auscultation bilaterally with no crackles or wheezes. ABD: Hypoactive bowel sounds soft throughout with the exception tenderness left lower quadrant. PSYCH: Good eye contact, speech is not pressured. Const: Vital Signs, click to edit/add: Vital Signs - 24 hr 08/05/24 11:18 Temperature 97 F L Pulse Rate [Right Pulse Oximeter] 76 Respiratory Rate 18 Blood Pressure [Ri ght Upper Arm] 137/87 Pulse Oximetry 100 Oxygen Delivery Me thod Room Air Course Course ED Course: Patient seen and examined. 1 L normal saline 4 mg of Zofran 1 mg IV Ativan given. CBC comprehensive metabolic panel lipase UA CT abdomen pelvis pending. Vital Signs Vital signs: Initial Vital Signs Temperature 97 F L 08/05/24 11:18 Temperature Source Temporal Artery Scan 08/05/24 11:18 Pulse Rate 76 08/05/24 11:18 Pulse Rhythm Regular 08/05/24 11:18 Pulse Strength 3+ Normal 08/05/24 11:18 Respiratory Rate 18 08/05/24 11:18 Blood Pressure 137/87 08/05/24 11:18 Blood Pressure Mean 103 08/05/24 11:18 Blood Pressure Position Sitting 08/05/24 11:18 Pulse Oximetry 100 08/05/24 11:18 Oxygen Delivery Method Room Air 08/05/24 11:18 Vital Signs Temperature 97 F L 08/05/24 11:18 Pulse Rate 76 08/05/24 11:18 Respiratory Rate 18 08/05/24 11:18 Blood Pressure 137/87 08/05/24 11:18 Pulse Oximetry 100 08/05/24 11:18 Oxygen Delivery Method Room Air 08/05/24 11:18 Temperature 97 F L 08/05/24 11:18 Pulse Rate 76 08/05/24 11:18 Respiratory Rate 18 08/05/24 11:18 Blood Pressure 137/87 08/05/24 11:18 Pulse Oximetry 100 08/05/24 11:18 Oxygen Delivery Method Room Air 08/05/24 11:18 Medications Administered Medications: Generic Name Dose Route Start Last Admin Trade Name Freq PRN Reason Stop Dose Admin Potassium Chloride 10 meq in 100 mls @ 100 mls/hr 08/05/24 12:30 08/05/24 13:43 Potassium Chloride IVPB 08/05/24 14:59 100 mls/hr Q90M PAULO Administration Ondansetron HCl 4 mg 08/05/24 11:27 08/05/24 11:50 Ondansetron 2 Mg/Ml Inj IVP 4 mg ONCE PRN Administration Discontinued Medications Generic Name Dose Route Start Last Admin Trade Name Freq PRN Reason Stop Dose Admin Hydromorphone HCl 0.5 mg 08/05/24 12:46 08/05/24 12:50 Hydromorphone 0.5 Mg/0.5 Ml Inj IVP 08/05/24 12:47 0.5 mg ONCE ONE Administration Sodium Chloride 1,000 mls @ 1,000 mls/hr 08/05/24 12:23 08/05/24 12:43 0.9 % Sodium Chloride 1000 Ml IV 08/05/24 13:22 1,000 mls/hr .Q1H PAULO Administration Lorazepam 1 mg 08/05/24 11:28 08/05/24 11:50 Lorazepam 2 Mg/Ml Inj IVP 08/05/24 11:29 1 mg ONCE ONE Administration MDM - Abdominal Pain MDM Narrative Medical decision making narrative: Patient presents with left flank pain. She has history of renal lithiasis and has a 6 mm stone in her proximal left ureter. She was treated with normal saline Ativan Zofran and Dilaudid with improvement of her symptoms. She did have an elevated lipase and I did obtain ultrasound the gallbladder which was normal. This time we had nice discussion about treatment of kidney stones. She has a history of renal lithiasis and his likely bili passed this on her own. I did recommend hydration Vicodin Zofran and Flomax with outpatient follow-up. I did offer transfer to urology this weekend stating that this would be an option but conservative therapy will be per for oval at this point. She will follow-up with her doctor this week to set of urology follow-up. Lab Data Labs: Lab Results 08/05/24 Range/Units 11:40 WBC 6.22 (4.50-11.00) K/uL RBC 4.27 (4.00-5.20) m/uL Hgb 11.7 L (12.0-16.0) gm/dL Hct 35.3 (33.0-51.0) % MCV 83 (80-100) fL MCH 27 (26-34) pg MCHC 33 (32-36) gm/dL RDW Coeff of Acss 12.5 (11.5-15.5) % Plt Count 340 (140-440) K/uL Neut % (Auto) 61.9 (42.0-72.0) % Lymph % (Auto) 30.2 (20-44) % Martin % (Auto) 5.3 (0.0-11.0) % Eos % (Auto) 1.8 (0.0-7.0) % Baso % (Auto) 0.5 (0.0-3.0) % Neut # (Auto) 3.85 (1.7-7.0) K/uL Lymph # (Auto) 1.88 (0.90-2.90) K/uL Martin # (Auto) 0.30 (0.00-0.90) K/UL Eos # (Auto) 0.11 (0.00-0.50) K/uL Baso # (Auto) 0.03 (0.00-0.30) K/uL Abs Immat Gran (auto) 0.02 (0.00-0.30) K/uL Imm/Tot Granulo (auto) 0.3 % Sodium 138 (135-149) mmol/L Potassium 3.0 L (3.6-5.1) mmol/L Chloride 101 (96-114) mmol/L Carbon Dioxide 20 (20-32) mmol/L Anion Gap 17 H (7-15) mEq/L BUN 14 (7-30) mg/dL Creatinine 0.7 (0.5-1.5) mg/dL Estimated Creat Clear 84.15 Estimated GFR 100 ml/min Glucose 216 H (60-115) mg/dL Calcium 9.5 (8.4-10.6) mg/dL Total Bilirubin 0.8 (0.1-1.5) mg/dL AST 37 H (12-35) U/L ALT 38 H (4-35) U/L Alkaline Phosphatase 72 (40-150) U/L Total Protein 8.3 (6.0-8.3) g/dL Albumin 4.6 (3.3-5.0) g/dL Lipase 501 H (23-300) U/L Discharge Plan Discharge Clinical Impression: Kidney stone Patient Disposition: Home, Self-Care Condition: Stable Instructions: Kidney Stones (ED) Additional Instructions: Flomax as directed Adams as directed Zofran as directed Hydration Follow-up with your doctor this coming week. Prescriptions: New tamsulosin [Flomax] 0.4 mg capsule 0.4 mg PO DAILY Qty: 10 3RF ondansetron 4 mg tablet,disintegrating 4 mg PO Q8H PRN (Reason: nausea and vomiting) Qty: 20 0RF hydrocodone-acetaminophen 5-325 mg tablet 1 tab PO Q8H PRN (Reason: pain) Qty: 10 0RF No Action Trulicity 1.5 mg/0.5 mL pen injector 1.5 mg subcut atorvastatin 20 mg tablet 20 mg PO DAILY metformin 1,000 mg tablet 1,000 mg PO BID losartan-hydrochlorothiazide 100-12.5 mg tablet 1 tab PO DAILY insulin glargine [Lantus Solostar U-100 Insulin] 100 unit/mL (3 mL) insulin pen 8 unit subcut QPM Qty: 3 0RF Follow Up/Referrals: Rich Dupree MD [Primary Care Provider] - Stand Alone Forms: [email or web address] Info Instructions
[2024-08-05] MEDS: LORazepam 2 MG/ML inj 1 MG IVP (11:50)
[2024-08-05] MEDS: ONDANSETRON 2 MG/ML inj 4 MG IVP (11:50)
[2024-08-05 11:57] LABS: Basophils Absolute Auto 0.03 K/uL (0.00-0.30); Basophils Percent Auto 0.5 % (0.0-3.0); Eosinophils Absolute Auto 0.11 K/uL (0.00-0.50); Eosinophils Percent Auto 1.8 % (0.0-7.0); Hematocrit 35.3 % (33.0-51.0); Hemoglobin* 11.7 gm/dL (12.0-16.0); Immature Granulocytes Abs Auto 0.02 K/uL (0.00-0.30); Immature Granulocytes Pct Auto 0.3 %; Lymphocytes Absolute Auto 1.88 K/uL (0.90-2.90); Lymphocytes Percent Auto 30.2 % (20-44); Mean Corpuscular HGB Conc 33 gm/dL (32-36); Mean Corpuscular Hemoglobin 27 pg (26-34); Mean Corpuscular Volume 83 fL (80-100); Monocytes Percent Auto 5.3 % (0.0-11.0); Neutrophils Absolute Auto 3.85 K/uL (1.7-7.0); Neutrophils Percent Auto 61.9 % (42.0-72.0); Platelet Count* 340 K/uL (140-440); RDW Coefficient of Variation % 12.5 % (11.5-15.5); Red Blood Count 4.27 m/uL (4.00-5.20); White Blood Count* 6.22 K/uL (4.50-11.00)
--- OUTSIDE RECORDS SUMMARY | 2024-08-05 12:03 | XMS_ITS | Clinical Summary ---
Author Organization [facility] Address [address] [place] [address] Care Team Providers Care Adult Caregiver Name Role Phone Rich Dupree MD Primary Care Provider [phone] Allergies Active Allergy Reactions Criticality Noted Date [...] 36 mL 3 09/01/19 24 Active Insulin [place], Disposable, (Pen Needle) 32 gauge x 5/32Indications: [...] Type Department Care Team Description 07/24/2024 Refill [facility] [address] [place] [address] Rich Dupree MD Refill Request (Atorvastatin) 05/24/2024 9:50 AM POOLROOM/POOLHALL MANAGER Office Visit [facility] [address] [place] [address] Rich Dupree MD Diabetes 05/23/2024 Travel 05/21/2024 [facility]ill [facility] [address] [facility] [address] Rich Dupree MD Refill Request (Losartan Potassium [...] on file Legal Sex Female 5:25 AM POOLROOM/POOLHALL MANAGER Gender Identity Not on file Sexual Orientation Not on file Obstetrics History Para Term AB IAB SAB Ectopic Multiple Livin g Live Births 5 5 Date Outcome GA Total Labor Labor/2nd/3rd Weight Sex Type Anes PTL Cyndi A1 A5 Name Clin Para Para Para Para Para Last Filed Vital Signs Vital Sign Reading Time Taken Comments Blood Pressure 131/82 05/24/2024 10:05 AM POOLROOM/POOLHALL MANAGER Pulse 80 05/24/2024 10:05 AM POOLROOM/POOLHALL MANAGER Temperature 36.6 C (97.9 F) 09/30/2021 8:13 AM CDT Respiratory Rate 16 12/27/2016 9:09 AM CDT Oxygen Saturation 98% 05/24/2024 10:05 AM POOLROOM/POOLHALL MANAGER Inhaled Oxygen Concentration - - Weight 82 kg (180 lb 11.2 oz) 05/24/2024 10:05 A M POOLROOM/POOLHALL MANAGER Height 169.7 cm (5' 6.81) 02/08/2023 3:15 PM CD T Body Mass Index 28.46 02/08/2023 3:15 PM CDT Plan of Treatment Upcoming Encounters Date Type Department Care Team (Late st Contact Info) Description 11/26/2024 9:05 AM CDT Office Visit [facility] [address] [place] [address] Rich Dupree MD [address] [place] [address] Health Maintenance Due Date Last Done Comments [...] Completed 09/29/2022 Medical Devices Implanted Type Area Child Care Teacher Device Identifier Shelf Expiration Date Model / Serial / Lot Implnt Mammary [id number] - [id number] Implanted:Qty: 1 on 11/24/2010 at [facility] Explanted:at [facility] (Quantity not on file) Left: Breast [employer] Eyelation [id number] # / [id number] / [id number] implnt Mammary [id number] Implanted:Qty: 1 on 11/24/2010 at [facility] Explanted:at [facility] (Quantity not on file) Right: Breast J [employer] Eyelation [id number] # / [id number] / [id number] Procedures Procedure Name Priority Date/Time Associated Diagnosis Comments HEMOGLOBIN A1C MONITORING (POCT) Routine 05/24/2024 9:55 AM POOLROOM/POOLHALL MANAGER Type 2 diabetes mellitus with microalbuminuria, without long-term current use of insulin (HC) LIPID PANEL Routine 05/24/2024 9:55 AM POOLROOM/POOLHALL MANAGER Type 2 diabetes mellitus with microalbuminuria, without long-term current use of insulin (HC) LC HIV-1/O/2, 4TH GENERATION Routine 09/29/2022 1:04 PM CDT Screening for HIV (human immunodeficiency virus) DUST BOX WORKER THIN PREP PAP SCREEN IMAGED Routine 12/07/2019 1:45 PM CDT Cervical cancer screening COLONOSCOPY 12/08/2018 8:58 AM CDT Screen for colon cancer ANTI HCV Routine 04/14/2011 3:28 PM POOLROOM/POOLHALL MANAGER Elevated LFTs from Last 3 Months or Most Recently Relevant to Health Maintenance Results * (ABNORMAL) POCT Hemoglobin A1C Monitoring (05/24/2024 9:55 AM POOLROOM/POOLHALL MANAGER) POC HEMOGLOBIN A1C 6.9(H) <6.0 % OF TOTAL HGB [facility] Comment: Any point of care results exhibiting inconsistency with the patient's clinical status should be repeated using a different testing method. Blood BLOOD SPECIMEN / Unknown 05/24/2024 9:55 AM POOLROOM/POOLHALL MANAGER 05/24/2024 9:55 AM POOLROOM/POOLHALL MANAGER us Rich Dupree MD CHEMISTRY Final Resu lt [facility] [address] [place] [address], [facility] [address] [place] [address] * LIPID PANEL (05/24/2024 9:55 AM POOLROOM/POOLHALL MANAGER) CHOLESTEROL, TOTAL 148 <200 mg/dL [facility] Coleman SS et al. JUAN CARLOS. 2013;310(19): 7696-1679 (http://education.InSync Software/faq/TUF745) CHOL/HDLC RATIO 2.8 <5.0 (calc) [facility] NON HDL CHOLESTEROL 95 <130 mg/dL (calc) [facility] Comment: For patients with diabetes plus 1 major ASCVD risk factor, treating to a non-HDL-C goal of <100 mg/dL (LDL-C of <70 mg/dL) is considered a therapeutic option. Blood BLOOD SPECIMEN / Unknown 05/24/2024 9:55 AM POOLROOM/POOLHALL MANAGER 05/24/2024 9:56 AM POOLROOM/POOLHALL MANAGER Rich Dupree MD CHEMISTRY Final Resu lt [employer] [facility] [address] [place] [address], [facility] [address] [place] [address] * LC HIV-1/O/2, 4TH GENERATION (09/29/2022 1:04 PM CDT) [facility] HIV Scr 4th Gen Non Reactive Non Reactive 10/01/2022 10:06 PM CDT [facility] ([facility] Comment: HIV Negative HIV-1/HIV-2 antibodies and HIV-1 p24 antigen were NOT detected. There is no laboratory evidence of HIV infection. Blood BLOOD SPECIMEN / Unknown Venipuncture / Unknown 09/29/2022 1:04 PM CDT 09/29/2022 1:08 PM CDT Narrative [facility] ([facility]) - 10/01/2022 10:06 PM CDT Performed at: [address] [place] [id number] Gas Torch Solderer: Jesse Price MD, Phone: [phone] us [facility] Final Res ult [facility] ([facility]) [address] [place] [address], * DUST BOX WORKER THIN PREP PAP SCREEN IMAGED (12/07/2019 1:45 PM CDT) Case Report Gynecologic Cytology Report Case: [id number] Authorizing Provider: Rich Dupree MD Collected: 12/07/2019 1345 Ordering Location: [facility] Received: 12/07/2019 1421 Clinic First Screen: Jamie Soto Specimen: DUST BOX WORKER ThinPrep Vial Screening, Cervical 12/13/2019 9:04 AM CDT [facility] INTERPRETATION/ RESULT NEGATIVE FOR INTRAEPITHELIAL LESION OR MALIGNANCY (NIL) (none) 12/13/2019 9:04 AM CDT [facility] IMEN ADEQUACY Satisfactory for evaluation Endocervical component present Scant cellularity 12/13/2019 9:04 AM CDT [facility] HPV REQUEST HPV and PAP 12/13/2019 9:04 AM CDT [facility] Date of LMP 201012/13/2019 9:04 AM CDT [facility] Last Pap Date 01/19/16 12/13/2019 9:04 AM CDT [facility] Last Pap Result NIL 0 9:04 AM CDT [facility] Abnormal Pap or [place] Bx in last 5 years No 12/13/2019 9:04 AM CDT [facility] Menstrual Status Postmenopausal 12/13/2019 9:04 AM CDT [facility] [place] Bx Done Today No 12/13/2019 9:04 AM CDT [facility] Additional Information None given 12/13/2019 9:04 AM CDT [facility] Comment: Cytology is screened at [facility] - [address], [place] [address] and [facility] - [address] [place] [address], [place] [address] and [facility] - [address] [place] [address] Interpreted at [facility] - [address], [place] [address] Automated Review Successful 12/13/2019 9:04 AM CDT [facility] Comment:Specimen processed s uccessfully by automated salon supervisor device, ThinPrep Imaging System, [employer] ANCILLARY TESTING DUST BOX WORKER HPV Ordered, Please see separate report 12/13/2019 9:04 AM CDT [facility] Note The pap test is a [...] and malignant lesions. 12/13/2019 9:04 AM CDT [facility] Other (Cervical) Non-Blood / Unknown 12/07/2019 1:45 PM CDT 12/07/2019 2:21 PM CDT us Rich Dupree MD PATHOLOGY/CYTOLOGY Final R esult [facility] [address] [place] [address], [place] * COLONOSCOPY (12/08/2018 8:58 AM CDT) [...] 8:58 AM Procedure Code(s): --- Professional --- 13551, Colonoscopy, flexible; diagnostic, including collection of specimen(s) bybrushing or washing, when performed (separateprocedure) Diagnosis Code(s): --- Professional --- Z12.11, Encounter for screening formalignant neoplasm of colon D17.5, Benign lipomatous neoplasm of intra-abdominal organs CPT copyright 2018 [employer]. All rights reserved. The codes documented in this report are preliminary and upon ux researcher reviewmay be revised to meet current compliance requirements. Scope In: 9:26:23 AM Scope Withdrawal Time 0 hours 10 minutes 42 seconds Scope Out: 9:41:16 AM Coleman Estrella MD PROCEDURE ORD Final Res ult * ANTI HCV (04/14/2011 3:28 PM POOLROOM/POOLHALL MANAGER) ANTI HCV Non-reacti ve [facility] Blood specimen (specimen) BLOOD SPECIMEN / Unknown 04/14/2011 3:28 PM POOLROOM/POOLHALL MANAGER 04/14/2011 3:09 PM POOLROOM/POOLHALL MANAGER Coleman Estrella MD SEND OUTS Final Res ult [facility] INTERNAL ZIP [id number] [address] [address] from Last 3 Months or Most Recently Relevant to Health Maintenance Insurance * Guarantor: Anu Winter Account Type Relation to Patient Date of Phone Billing Address Personal/Family Self 1965 [phone] (Work) [address] [place] [address] BLUE [place] Advance Directives * Full Code (Latest Code Status on File) Date Activated Date Inactivated Comments 06/11/2013 10:13 AM 06/12/2013 2:26 AM * Full Code Date Activated Date Inactivated Comments 11/24/2010 7:34 AM 11/24/2010 12:53 PM * Full Code Date Activated Date Inactivated Comments 11/24/2010 6:05 AM 11/24/2010 7:34 AM Care Teams Adult Caregiver Relationship Specialty Start Date End Date Rich Dupree MD [address] [place] [address] PCP - General Family Practice 10/09/18
[2024-08-05 12:04] LABS: Slide Review Reflex No
[2024-08-05 12:10] LABS: Albumin* 4.6 g/dL (3.3-5.0); Chloride* 101 mmol/L (96-114)
[2024-08-05 12:11] LABS: Sodium* 138 mmol/L (135-149)
[2024-08-05 12:13] LABS: Anion Gap 17 mEq/L (7-15); Aspartate Amino Transferase* 37 U/L (12-35); Bilirubin Total* 0.8 mg/dL (0.1-1.5); Blood Urea Nitrogen* 14 mg/dL (7-30); Carbon Dioxide* 20 mmol/L (20-32); Creatinine* 0.7 mg/dL (0.5-1.5); Est. Creatinine Clearance* 84.15; Estimated Glomerular Filt Rate 100 ml/min; Total Protein* 8.3 g/dL (6.0-8.3)
[2024-08-05 12:14] LABS: Alanine Aminotransferase* 38 U/L (4-35); Alkaline Phosphatase* 72 U/L (40-150); Calcium* 9.5 mg/dL (8.4-10.6); Glucose* 216 mg/dL (60-115); Lipase* 501 U/L (23-300)
[2024-08-05] MEDS: POTASSIUM CHLORIDE 10 MEQ/100 ML PIGGYBACK 100 MEQ IVPB ×2 (12:43→13:43)
[2024-08-05] MEDS: 0.9 % SODIUM CHLORIDE 1000 ml 1,000 ML IV (12:43)
[2024-08-05] MEDS: HYDROmorphone 0.5 mg/0.5 ml inj IVP (12:50)
--- NOTE | 2024-08-05 13:01 | CRLHL7_ITS ---
For Patients: As a result of the Century Cures Act, medical imaging exams and procedure reports are released immediately into your electronic medical record. You may view this report before your referring provider. If you have questions, please contact your health care provider. INDICATION: Abdominal pain. COMPARISON: CT scan 08/05/2024. FINDINGS: Cem gallstones. No gallbladder wall thickening or pericholecystic fluid. Sonographic Alston`s sign is negative. The common bile duct has a normal diameter measuring 3.2 mm. The visualized liver parenchyma is echogenic consistent with fatty infiltration. This focus of sparing adjacent to the gallbladder. IMPRESSION: Sonographically normal appearing gallbladder and common bile duct. Fatty infiltration of the liver. Dictated by Michelet Sandoval MD @ 08/05/2024 2:46:02 PM (Electronically Signed)
== END 2024-08-05 15:16 | disposition home or self-care (01) ==
PROVIDERS: Emergency Provider Internal Medicine; PCP Surgery
DX: N20.0 Calculus of kidney (principal)
CPT/HCPCS: 36415; 74177; 76705; 80053; 81003; 83690; 85025; 96365; 96375; 99283; 99284; 99285; J1171; J2060; J2405; J3480; J7030; Q9967

== ENCOUNTER 2024-08-08 13:32 | Emergency (ER) | payer BC, SELFPAY ==
--- OUTSIDE RECORDS SUMMARY | 2024-08-08 13:34 | XMS_ITS | Clinical Summary ---
Author Organization [employer] [facility] [employer] [facility] Address [address] [place] [id number] Care Team Providers Care Network Applications Specialist Name Role Phone Rich Dupree MD Primary Care Provider [phone] Allergies Active Allergy Reactions Criticality Noted Date [...] 36 mL 3 09/01/19 24 Active Insulin [place], Disposable, (Pen Needle) 32 gauge x 5/32Indications: [...] Encounters Date Type Department Care Team Description 08/08/2024 Telephone [facility] [address] [place] [address] Rich Dupree MD Kidney Stone; Fever 08/05/2024 Orders Only [facility] Scanner 1 scan: (1-Ord) [facility], CT ABDOMEN PELVIS W CON, 08/05/2024 08/05/2024 Orders Only [facility] Scanner 1 scan: (1-Ord) [place], ABDOMEN LIMITED, 08/05/2024 07/24/2024 Refill [facility] [address] [place] [address] Rich Dupree MD Refill Request (Atorvastatin) 05/24/2024 9:50 AM PLASTIC MAKER Office Visit [facility] [address] [place] [address] Rich Dupree MD Diabetes 05/23/2024 Travel 05/21/2024 Refill [facility] [address] [place] [address] Rich Dupree MD Refill Request (Losartan Potassium [...] on file Legal Sex Female 5:25 AM PLASTIC MAKER Gender Identity Not on file Sexual Orientation Not on file Obstetrics History Para Term AB IAB SAB Ectopic Multiple Livin g Live Births 5 5 Date Outcome GA Total Labor Labor/2nd/3rd Weight Sex Type Anes PTL Cyndi A1 A5 Name Clin Para Para Para Para Para Last Filed Vital Signs Vital Sign Reading Time Taken Comments Blood Pressure 131/82 05/24/2024 10:05 AM PLASTIC MAKER Pulse 80 05/24/2024 10:05 AM PLASTIC MAKER Temperature 36.6 C (97.9 F) 09/30/2021 8:13 AM CDT Respiratory Rate 16 12/27/2016 9:09 AM CDT Oxygen Saturation 98% 05/24/2024 10:05 AM PLASTIC MAKER Inhaled Oxygen Concentration - - Weight 82 kg (180 lb 11.2 oz) 05/24/2024 10:05 A M PLASTIC MAKER Height 169.7 cm (5' 6.81) 02/08/2023 3:15 PM CD T Body Mass Index 28.46 02/08/2023 3:15 PM CDT Plan of Treatment Upcoming Encounters Date Type Department Care Team (Late st Contact Info) Description 11/26/2024 9:05 AM CDT Office Visit [facility] [address] [place] [address] Rich Dupree MD [address] [place] [address] Health Maintenance Due Date Last Done Comments Pneumococcal series for age 50+ (1 of 2 - PCV) 1984 COVID-19 vaccine series (2023- season) 2024 Influenza Vaccine (#1) 2024 BMI [...] Completed 09/29/2022 Medical Devices Implanted Type Area Tape Control Skin Or Spar Mill Operator Device Identifier Shelf Expiration Date Model / Serial / Lot Implnt Mammary [id number] - [id number] Implanted:Qty: 1 on 11/24/2010 at [facility] Explanted:at [facility] (Quantity not on file) Left: Breast [employer] [id number] # / [id number] / [id number] implnt Mammary [id number] Implanted:Qty: 1 on 11/24/2010 at [facility] Explanted:at [facility] (Quantity not on file) Right: Breast [employer] [id number] # / [id number] / [id number] Procedures Procedure Name Priority Date/Time Associated Diagnosis Comments SCAN-CT INTERPRETATION 08/05/2024 12:00 AM CDT SCAN-ULTRASOUND REPORT 08/05/2024 12:00 AM CDT HEMOGLOBIN A1C MONITORING (POCT) Routine 05/24/2024 9:55 AM PLASTIC MAKER Type 2 diabetes mellitus with microalbuminuria, without long-term current use of insulin (HC) LIPID PANEL Routine 05/24/2024 9:55 AM PLASTIC MAKER Type 2 diabetes mellitus with microalbuminuria, without long-term current use of insulin (HC) LC HIV-1/O/2, 4TH GENERATION Routine 09/29/2022 1:04 PM CDT Screening for HIV (human immunodeficiency virus) PULLMAN CONDUCTOR THIN PREP PAP SCREEN IMAGED Routine 12/07/2019 1:45 PM CDT Cervical cancer screening COLONOSCOPY 12/08/2018 8:58 AM CDT Screen for colon cancer ANTI HCV Routine 04/14/2011 3:28 PM PLASTIC MAKER Elevated LFTs from Last 3 Months or Most Recently Relevant to Health Maintenance Results * SCAN-ULTRASOUND REPORT (08/05/2024 12:00 AM CDT) Anatomical Region Laterality Modality Other us Scanner OTHER Final Result * SCAN-CT INTERPRETATION (08/05/2024 12:00 AM CDT) Anatomical Region Laterality Modality Other us Scanner OTHER Final Result * (ABNORMAL) POCT Hemoglobin A1C Monitoring (05/24/2024 9:55 AM PLASTIC MAKER) POC HEMOGLOBIN A1C 6.9(H) <6.0 % OF TOTAL HGB [facility] Comment: Any point of care results exhibiting inconsistency with the patient's clinical status should be repeated using a different testing method. Blood BLOOD SPECIMEN / Unknown 05/24/2024 9:55 AM PLASTIC MAKER 05/24/2024 9:55 AM PLASTIC MAKER Rich Dupree MD CHEMISTRY Final Resu lt [facility] [address] [place] [address], [place] [phone] [facility] [address] [place] [address] * LIPID PANEL (05/24/2024 9:55 AM PLASTIC MAKER) [facility] CHOLESTEROL, TOTAL 148 <200 mg/dL [facility] HDL CHOLESTEROL 53 > OR = 50 mg/dL [facility] TRIGLYCERIDES 116 <150 mg/dL [facility] LDL-CHOLESTEROL 75 mg/dL (calc) [facility] Comment: Reference range: <100 Desirable range <100 mg/dL for primary prevention; <70 mg/dL for patients with CHD or diabetic patients with > or = 2 CHD risk factors. LDL-C is now calculated using the Coleman-Sage calculation, which is a validated novel method providing better accuracy than the Friedewald equation in the estimation of LDL-C. Coleman SS et al. JUAN CARLOS. 2013;310(19): 7836-6108 (http://education.Bridgefy/faq/AGG379) CHOL/HDLC RATIO 2.8 <5.0 (calc) [facility] NON HDL CHOLESTEROL 95 <130 mg/dL (calc) [facility] Comment: For patients with diabetes plus 1 major ASCVD risk factor, treating to a non-HDL-C goal of <100 mg/dL (LDL-C of <70 mg/dL) is considered a therapeutic option. Blood BLOOD SPECIMEN / Unknown 05/24/2024 9:55 AM PLASTIC MAKER 05/24/2024 9:56 AM PLASTIC MAKER Rich Dupree MD CHEMISTRY Final Resu lt [employer] [address] [address], [place] [phone] [employer] [address] [address] * LC HIV-1/O/2, 4TH GENERATION (09/29/2022 1:04 PM CDT) HIV Scr 4th Gen Non Reactive Non Reactive 10/01/2022 10:06 PM CDT [facility] ([facility]) Comment: HIV Negative HIV-1/HIV-2 antibodies and HIV-1 p24 antigen were NOT detected. There is no laboratory evidence of HIV infection. Blood BLOOD SPECIMEN / Unknown Venipuncture / Unknown 09/29/2022 1:04 PM CDT 09/29/2022 1:08 PM CDT Narrative [facility] ([facility]) - 10/01/2022 10:06 PM CDT Performed at: [address] [place] [id number] Head Golf Coach: Jesse Price MD, Phone: [phone] us [facility] Final Res ult [facility] ([facility]) [address] [place] [address], * PULLMAN CONDUCTOR THIN PREP PAP SCREEN IMAGED (12/07/2019 1:45 PM CDT) Pathologist [facility] Case Report Gynecologic Cytology Report Case: [id number] Authorizing Provider: Rich Dupree MD Collected: 12/07/2019 1345 Ordering Location: [facility] Received: 12/07/2019 1421 Clinic First Screen: Jamie Soto Specimen: PULLMAN CONDUCTOR ThinPrep Vial Screening, Cervical 12/13/2019 9:04 AM CDT [facility] INTERPRETATION/ RESULT NEGATIVE FOR INTRAEPITHELIAL LESION OR MALIGNANCY (NIL) (none) 12/13/2019 9:04 AM CDT [facility] IMEN ADEQUACY Satisfactory for evaluation Endocervical component present Scant cellularity 12/13/2019 9:04 AM CDT [facility] HPV REQUEST HPV and PAP 12/13/2019 9:04 AM CDT [facility] Date of LMP 2011 12/13/2019 9:04 AM CDT [facility] Last Pap Date 01/19/16 12/13/2019 9:04 AM CDT [facility] Last Pap Result NIL 0 9:04 AM CDT [facility] Abnormal Pap or Luther Bx in last 5 years No 12/13/2019 9:04 AM CDT [facility] Menstrual Status Postmenopausal 12/13/2019 9:04 AM CDT [facility] Luther Bx Done Today No 12/13/2019 9:04 AM CDT [facility] Additional Information None given 12/13/2019 9:04 AM CDT [facility] Comment: Cytology is screened at [facility] - [address], [place] [address] and [facility] - [address] [place] [address] and [facility] - [address] [place] [address] Interpreted at [facility] - [address], [place] [address] Automated Review Successful 12/13/2019 9:04 AM T [facility] Comment:Specimen processed s uccessfully by automated screedman/laborer device, ThinPrep Imaging System, [employer] ANCILLARY TESTING PULLMAN CONDUCTOR HPV Ordered, Please see separate report 12/13/2019 9:04 AM T [facility] Note The pap test is [...] and malignant lesions. 12/13/2019 9:04 AM CDT [facility] Other (Cervical) Non-Blood / Unknown 12/07/2019 1:45 PM CDT 12/07/2019 2:21 PM CDT us Rich Dupree MD PATHOLOGY/CYTOLOGY Final R esult [facility] [address] [place] [address], [place] * COLONOSCOPY (12/08/2018 8:58 AM CDT) [...] reponse to care. [facility] flow[facility] and nursing notes for moderate sedation details. Total physician intraservice time was 17 minutes. Coleman Estrella MD 12/08/2018 9:46:37 AM This report has been signed electronically. Note Initiated On: 12/08/2018 8:58 AM Procedure Code(s): --- Professional --- 05542, Colonoscopy, flexible; diagnostic, including collection of specimen(s) bybrushing or washing, when performed (separateprocedure) Diagnosis Code(s): --- Professional --- Z12.11, Encounter for screening formalignant neoplasm of colon D17.5, Benign lipomatous neoplasm of intra-abdominal organs CPT copyright 2018 [employer]. All rights reserved. The codes documented in this report are preliminary and upon event host reviewmay be revised to meet current compliance requirements. Scope In: 9:26:23 AM Scope Withdrawal Time 0 hours 10 minutes 42 seconds Scope Out: 9:41:16 AM us Coleman Estrella MD PROCEDURE ORD Final Res ult * ANTI HCV (04/14/2011 3:28 PM PLASTIC MAKER) ANTI HCV Non-reacti ve [facility] Blood specimen (specimen) BLOOD SPECIMEN / Unknown 04/14/2011 3:28 PM PLASTIC MAKER 04/14/2011 3:09 PM PLASTIC MAKER Coleman Estrella MD SEND OUTS Final Res ult [facility] [place]NAL ZIP [address] [address] from Last 3 Months or Most Recently Relevant to Health Maintenance Insurance * Guarantor: Anu Winter Account Type Relation to Patient Date of Phone Billing Address Personal/Family Self 1965 [phone] (Work) [address] [place] [address] BLUE CROSS OF NON[facility] Advance Directives * Full Code (Latest Code Status on File) Date Activated Date Inactivated Comments 06/11/2013 10:13 AM 06/12/2013 2:26 AM * Full Code Date Activated Date Inactivated Comments 11/24/2010 7:34 AM 11/24/2010 12:53 PM * Full Code Date Activated Date Inactivated Comments 11/24/2010 6:05 AM 11/24/2010 7:34 AM Care Teams Network Applications Specialist Relationship Specialty Start Date End Date Rich Dupree MD [address] [place] [address] PCP - General Family Practice 10/09/18
--- OUTSIDE RECORDS SUMMARY | 2024-08-08 13:34 | XMS_ITS | Data Portability ---
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 Lab urinalysis , dipstick 2021 [facility], [address], [address], [place], [address], 12:18:41 culture, urine 2021 [facility], [address], [address], [place], [address], 11:42:46 Referral None recorded. Procedures None recorded. Surgeries None recorded. Imaging CT, abdomen + pelvis, w/o contrast - Please call patient to schedule 2021 [facility] [place], [address] [facility], [address], [place], [address], 15:32:58 Medication Orders None recorded. Patient TargetsNo targets recorded. Patient Instructions Encounter Date Encounter Id Patient Instructions Last Modified By Organization Details Last Modified Time 02/03/2022 [id number] Hx of nephrolithiasis: - I will arrange [...] color -advantus Yellow yellow Not Available [facility] [address] [facility] [address] [address], [place], [address], 02/03/2022 12:18:41 02/04/20 22 02/03/2022 UA DIP CS ADVAN TUS appearance -advantus Clear clear Not Available [facility] [address] [facility] [address] [facility] [address], [place], [address], 02/03/2022 12:18:41 02/04/20 22 02/03/2022 UA DIP CS ADVAN TUS glucose -advantus Negati ve mg/dL negati ve Not Available [facility] [address] [place] [address] [address], [place], [address], 02/03/2022 12:18:41 02/04/20 22 02/03/2022 UA DIP CS ADVAN TUS bilirubin -advantus Negati ve negati ve Not Available [facility] [address] [place] [address] [address], [place], [address], 02/03/2022 12:18:41 02/04/20 22 02/03/2022 UA DIP CS ADVAN TUS ketones -advantus Negati ve mg/dL negati ve Not Available [facility] [address] [place] [address] [address], [place], [address], 02/03/2022 12:18:41 02/04/20 22 02/03/2022 UA DIP CS ADVAN TUS sp. gravity -advantus <=1.00 5 1.010- 1.025 Not Available [facility] [address] [place] [address] [address], [place], [address], 02/03/2022 12:18:41 02/04/20 22 02/03/2022 UA DIP CS ADVAN TUS pH -advantus 5.0 5.0-8. 0 Not Available [facility] [address] [place] [address] [address], [place], [address], 02/03/2022 12:18:41 02/04/20 22 02/03/2022 UA DIP CS ADVAN TUS protein -advantus Negati ve mg/dL negati ve Not Available [facility] [address] [place] [address] [address], [place], [address], 02/03/2022 12:18:41 02/04/20 22 02/03/2022 UA DIP CS ADVAN TUS urobilinogen -advantus 0.2 normal Not Available [facility] [address] [place] [address] [address], [place], [address], 02/03/2022 12:18:41 02/04/20 22 02/03/2022 UA DIP CS ADVAN TUS nitrites -advantus Negati ve negati ve Not Available [facility] [address] [facility] [address], [place], [address], 02/03/2022 12:18:41 02/04/20 22 02/03/2022 UA DIP CS ADVAN TUS blood -advantus Modera te negati ve abnormal Not Available [facility] [address] [facility] [address], [place], [address], 02/03/2022 12:18:41 02/04/20 22 02/03/2022 UA DIP CS ADVAN TUS leukocytes -advantus Trace negati ve abnormal Not Available [facility] [address] [facility] [address], [place], [address], 02/03/2022 12:18:41 02/04/20 22 02/03/2022 UA DIP CS ADVAN TUS performed by Caitlin Kinsey Not Available [facility] [address] [facility] [address], [place], [address], 02/03/2022 12:18:41 02/04/20 22 02/03/2022 UA DIP [...] ----- ----- ----- ----- ---- Not Available [facility] [address] [place] [address] [address], [place], [address], 02/03/2022 12:18:41 02/04/20 22 02/03/2022 UA MICRO SCOPI C U-WBC 2 - 5 [hpf] 0 - 2 abnormal Not Available [facility] [address] [place] [address], [place], [address], 02/03/2022 12:18:46 02/04/20 22 02/03/2022 UA MICRO SCOPI C U-RBC 0 - 2 [hpf] 0 - 2 Not Available [facility] [address] [place] [address], [place], [address], 02/03/2022 12:18:46 02/04/20 22 02/03/2022 UA MICRO SCOPI C bacteria Small [hpf] negati ve abnormal Not Available [facility] [address] [place] [address], [place], [address], 02/03/2022 12:18:46 02/04/20 22 02/03/2022 UA MICRO SCOPI C squamous epi Small /lpf negati ve,sma ll Not Available [facility] [address] [place] [address], [place], [address], 02/03/2022 12:18:46 02/04/20 22 02/03/2022 URINE CULTU [...] ,No Furth er Vaibhav p Not Available [facility] [address], [place], [address], 02/05/2022 11:42:46 02/17/20 22 02/21/2022 STONE DESTIN SIS source COMMEN T Left Urete r Not Available [facility] ([facility]) [address] [place], [address], 02/21/2022 12:07:23 02/17/20 22 02/21/2022 STONE DESTIN SIS color GAN Not Available [facility] ([facility]) [address] [place], [address], 02/21/2022 12:07:23 02/17/20 22 02/21/2022 STONE DESTIN SIS size <1 mm Too small to measu re. Not Available [facility] ([facility]) [address] [place], [address], 02/21/2022 12:07:23 02/17/20 22 02/21/2022 STONE DESTIN SIS weight <1 mg Too small to weigh Not Available [facility] ([facility]) [address] [place], [address], 02/21/2022 12:07:23 02/17/20 22 02/21/2022 STONE DESTIN SIS composition COMMEN T Perce ntage (Repr esent s the % compo sitio n) Not Available [facility] ([facility]) [address] [place], [address], 02/21/2022 12:07:23 02/17/20 22 02/21/2022 STONE DESTIN SIS calcium oxalate monohydrate 40 % Not Available [facility] ([facility]) [address] [place], [address], 02/21/2022 12:07:23 02/17/20 22 02/21/2022 STONE DESTIN SIS calcium oxalate dihydrate 60 % Not Available [facility] ([facility]) [address] [facility], [place], [address], 02/21/2022 12:07:23 02/17/20 22 02/21/2022 STONE DESTIN SIS hydroxyapati te COLD STORAGE SUPERINTENDENT Not Available [facility] ([facility]) [address] [facility], [place], [address], 02/21/2022 12:07:23 02/17/20 22 02/21/2022 STONE DESTIN SIS carbonate apatite COLD STORAGE SUPERINTENDENT Not Available [facility] ([facility]) [address] [facility], [place], [address], 02/21/2022 12:07:23 02/17/20 22 02/21/2022 STONE DESTIN SIS cahpo4 (brushite) COLD STORAGE SUPERINTENDENT Not Available [facility] ([facility]) [address] [place], [address], 02/21/2022 12:07:23 02/17/20 22 02/21/2022 STONE DESTIN SIS calcium phosphate COLD STORAGE SUPERINTENDENT Not Available [facility] ([facility]) [address] [facility], [place], [address], 02/21/2022 12:07:23 02/17/20 22 02/21/2022 STONE DESTIN SIS calcium carbonate COLD STORAGE SUPERINTENDENT Not Available [facility] ([facility]) [address] [place], [address], 02/21/2022 12:07:23 02/17/20 22 02/21/2022 STONE DESTIN SIS mg nh4 PO4 (struvite) COLD STORAGE SUPERINTENDENT Not Available [facility] ([facility]) [address] [place], [address], 02/21/2022 12:07:23 02/17/20 22 02/21/2022 STONE DESTIN SIS mghpo4 (newberyite) COLD STORAGE SUPERINTENDENT Not Available [facility] ([facility]) [address] [place], [address], 02/21/2022 12:07:23 02/17/20 22 02/21/2022 STONE DESTIN SIS uric acid COLD STORAGE SUPERINTENDENT Not Available [facility] ([facility]) [address] [place], [address], 02/21/2022 12:07:23 02/17/20 22 02/21/2022 STONE DESTIN SIS uric acid dihydrate COLD STORAGE SUPERINTENDENT Not Available [facility] ([facility]) [address] [place], [address], 02/21/2022 12:07:23 02/17/20 22 02/21/2022 STONE DESTIN SIS ammonium acid urate COLD STORAGE SUPERINTENDENT Not Available [facility] ([facility]) [address] [place], [address], 02/21/2022 12:07:23 02/17/20 22 02/21/2022 STONE DESTIN SIS sodium acid urate COLD STORAGE SUPERINTENDENT Not Available [facility] ([facility]) [address] [place], [address], 02/21/2022 12:07:23 02/17/20 22 02/21/2022 STONE DESTIN SIS 2,8 dihydroxyade nine COLD STORAGE SUPERINTENDENT Not Available [facility] ([facility]) [address] [place], [address], 02/21/2022 12:07:23 02/17/20 22 02/21/2022 STONE DESTIN SIS xanthine COLD STORAGE SUPERINTENDENT Not Available [facility] ([facility]) [address] [place], [address], 02/21/2022 12:07:23 02/17/20 22 02/21/2022 STONE DESTIN SIS cystine COLD STORAGE SUPERINTENDENT Not Available [facility] ([facility]) [address] [place], [address], 02/21/2022 12:07:23 02/17/20 22 02/21/2022 STONE DESTIN SIS cholesterol COLD STORAGE SUPERINTENDENT Not Available [facility] ([facility]) [address] [facility], [place], [address], 02/21/2022 12:07:23 02/17/20 22 02/21/2022 STONE DESTIN SIS calcium bilirubinate COLD STORAGE SUPERINTENDENT Not Available [facility] ([facility]) [address] [facility], [place], [address], 02/21/2022 12:07:23 02/17/20 22 02/21/2022 STONE DESTIN SIS bilirubin COLD STORAGE SUPERINTENDENT Not Available [facility] ([facility]) [address] [place], [address], 02/21/2022 12:07:23 02/17/20 22 02/21/2022 STONE DESTIN SIS calcium palmitate COLD STORAGE SUPERINTENDENT Not Available [facility] ([facility]) [address] [place], [address], 02/21/2022 12:07:23 02/17/20 22 02/21/2022 STONE DESTIN SIS calcium stearate COLD STORAGE SUPERINTENDENT Not Available [facility] ([facility]) [address] [facility], [place], [address], 02/21/2022 12:07:23 02/17/20 22 02/21/2022 STONE DESTIN SIS triamterene COLD STORAGE SUPERINTENDENT Not Available [facility] ([facility]) [address] [facility], [place], [address], 02/21/2022 12:07:23 02/17/20 22 02/21/2022 STONE DESTIN SIS drug or metabolite COLD STORAGE SUPERINTENDENT Not Available [facility] ([facility]) [address] [place], [address], 02/21/2022 12:07:23 02/17/20 22 02/21/2022 STONE DESTIN SIS dried blood COLD STORAGE SUPERINTENDENT Not Available [facility] ([facility]) [address] [place], [address], 02/21/2022 12:07:23 02/17/20 22 02/21/2022 STONE DESTIN SIS cellular material COLD STORAGE SUPERINTENDENT Not Available [facility] ([facility]) [address] [facility], [place], [address], 02/21/2022 12:07:23 02/17/20 22 02/21/2022 STONE DESTIN SIS other component(s) COLD STORAGE SUPERINTENDENT Not Available [facility] ([facility]) [address] [facility], [place], [address], 02/21/2022 12:07:23 02/17/20 22 02/21/2022 STONE DESTIN SIS comment COLD STORAGE SUPERINTENDENT Not Available [facility] ([facility]) [address] [facility], [place], [address], 02/21/2022 12:07:23 02/17/20 22 02/21/2022 STONE DESTIN [...] in compo sitio n. Not Available [facility] ([facility]) [address] [facility], [place], [address], 02/21/2022 12:07:23 02/17/20 22 02/21/2022 STONE DESTIN SIS photo TNP Test not perfo rmed No photo avail able Not Available [facility] ([facility]) [address] [facility], [place], [address], 02/21/2022 12:07:23 02/17/20 22 02/21/2022 STONE DESTIN SIS comment: COMMEN T Physi zohreh quest ions regar ding Calcu li Dest[place] sis conta ct [facility] at: [phone]. Not Available [facility] ([facility]) [address] [facility], [place], [address], 02/21/2022 12:07:23 02/17/20 22 02/21/2022 STONE DESTIN SIS please note: COMMEN T Calcu li jabari t will follo w via compu ter, mail or couri er awa sanabria. Not Available [facility] ([facility]) [address] [facility], [place], [address], 02/21/2022 12:07:23 02/17/20 22 02/21/2022 STONE DESTIN SIS disclaimer: CHUN Sheffield This test was devel oped and its perfo rmanc e cornelia cteri stics deter mined by [employer]. It has not been clear ed or appro lasha by the Food and Drug Admin istra tion. Not Available [facility] ([facility]) [address] [facility], [place], [address], 02/21/2022 12:07:23 02/17/20 22 02/21/2022 STONE DESTIN SIS pdf . Not Available [facility] ([facility]) [address] [facility], [place], [address], 02/21/2022 12:07:23 02/17/20 22 02/16/2022 STONE DESTIN SIS-L C source COMMEN T Left Urete r Not Available [facility] [address], [place], [address], 02/22/2022 14:48:34 02/17/20 22 02/16/2022 STONE DESTIN SIS-L C color GAN Not Available [facility] [address], [place], [address], 02/22/2022 14:48:34 02/17/20 22 02/16/2022 STONE DESTIN SIS-L C size <1 mm Too small to measu re. Not Available [facility] [address], [place], [address], 02/22/2022 14:48:34 02/17/20 22 02/16/2022 STONE DESTIN SIS-L C weight <1 mg Too small to weigh Not Available [facility] [address] [facility] [address], [place], [address], 02/22/2022 14:48:34 02/17/20 22 02/16/2022 STONE DESTIN SIS-L C composition COMMEN T Perce ntage (Repr esent s the % compo sitio n) Not Available [facility] [address] [place] [address], [place], [address], 02/22/2022 14:48:34 02/17/20 22 02/16/2022 STONE DESTIN SIS-L C calcium oxalate monohydrate 40 % Not Available [facility] [address] [place] [address], [place], [address], 02/22/2022 14:48:34 02/17/20 22 02/16/2022 STONE DESTIN SIS-L C calcium oxalate dihydrate 60 % Not Available [facility] [address] [place] [address], [place], [address], 02/22/2022 14:48:34 02/17/20 22 02/16/2022 STONE DESTIN [...] es in compo sitio n. Not Available [facility] [address] [place] [address] [address], [place], [address], 02/22/2022 14:48:34 02/17/20 22 02/16/2022 STONE DESTIN SIS-L C photo TEST NOT PERFOR MED. Test not perfo rmed No photo avail able Not Available [facility] [address] [place] [address] [address], [place], [address], 02/22/2022 14:48:34 02/17/20 22 02/16/2022 STONE DESTIN SIS-L C comment: COMMEN T Physi zohreh quest ions regar ding Calcu li Destin sis conta ct [facility] at: [phone]. Not Available [facility] [address] [facility] [address], [place], [address], 02/22/2022 14:48:34 02/17/20 22 02/16/2022 STONE DESTIN SIS-L C please note: COMMEN T Calcu li repor t will follo w via compu ter, mail or couri er awa sanabria. Not Available [facility] [address] [facility] [address], [place], [address], 02/22/2022 14:48:34 02/17/20 22 02/16/2022 STONE DESTIN SIS-L C disclaimer: SARAHJEFF Sheffield This test was devel oped and its perfo rmanc e cornelia cteri stics deter mined by [facility]. It has not been clear ed or appro lasha by the Food and Drug Admin istra tion. Not Available [facility] [address] [facility] [address], [place], [address], 02/22/2022 14:48:34 02/17/20 22 02/16/2022 STONE DESTIN SIS-L C pdf . Not Available [facility] [address] [facility] [address], [place], [address], 02/22/2022 14:48:34 01/06/20 22 09/30/2021 CT, abdom en + pelvi s, w/o contr ast No observ ation record ed. [email or web address] Not Available 2021 14:02:45 02/09/20 22 02/05/2022 CT, abdom en + pelvi s, w/o contr ast No observ ation record ed. [email or web address] [facility] [place] [address] [facility] [address], [place], [address], 02/10/2022 10:14:51 02/09/20 22 02/05/2022 CT, abdom en + pelvi s, w/o contr ast No observ ation record ed. [email or web address] [facility] [address], [place], [address], 02/15/2022 16:28:30 Result Notes None recorded. Problems Name Problem SNOMED Code Status Onset Date Resolution Date Notes Provider Name and Address Organization Details Recorded Time Hypercholester olemia 38886539 Active Jammie Goodpaste r null, [facility] 2 11:52:45 Hypertensive disorder 67836692 Active Jammie Goodpaste r null, [facility] 2 11:52:57 History of calculus of kidney 661833429 Active Jammie Goodpaste r null, [facility] 2 11:53:08 Diabetes mellitus 44480815 Active Jammie Goodpaste r null, [facility] 2 11:53:17 Malignant neoplastic disease 034844192 Active Jammie Goodpaste r null, [facility] 2 11:53:26 Problem Notes None recorded. Procedures Surgical History Date Name Laterality Status Provider Name and Address Organization Details Recorded Time 10/22/19 19 Diagnostic colonoscopy completed Not Available Health Note 01/11/2022 12:44:30 delivery completed Not Available Health Note 01/11/2022 12:44:30 Imaging Results Imaging Date Name Status [facility] Details LastModified Time 09/30/2021 CT, abdomen + pelvis, w/o contrast completed [email or web address] Information not available 01/06/2022 14:02:45 02/05/2022 CT, abdomen + pelvis, w/o contrast completed [email or web address] [facility] [address], [place], [address], 02/10/2022 10:14:51 02/05/2022 CT, abdomen + pelvis, w/o contrast completed [email or web address] [facility] [address], [place], [address], 02/15/2022 16:28:30 Procedure Notes None recorded. Medical Equipment None Reported. Allergies Allergen ID Allergen Name Allergen Category Reaction Reaction Severity Criticality Documentation Date Start Date Code Code System Note Provider Name and Address Organization Details Recorded Time 149381 Substance with sulfonami de structure and antibacte rial mechanism of action (substanc e) medicatio n Not available Not available Not available 02/03/2022 [id number] SNOMED Not Available Not Available Not [...] available 01/11/2022 Have You Traveled Outside Of [place] In The Past 30 Days? No [email or web address] Information not available 01/11/2022 Race Na Information not available 02/03/2022 Preferred Language Kyrgyz Information not available 02/03/2022 Number Of Pregnancies [...] available 2021 12:44:29 Medical History Condition Response Other N High Blood Pressure Y Kidney Stones Y Lung Disease N Depression Y GERD/Acid Reflux N Sexually Transmitted Infection N Diabetes Y Bleeding Disorder N Cancer Y High Cholesterol Y Heart Disease N Gynecological History Statement/Question Response If Post Menopausal, Age at Menopause 44 Leaking urine with intercourse N Hormone Therapy N Sexually Active? Y Pain with intercourse N Obstetrics History GPAL:G 0 P 0 0 0 0 Immunizations Vaccine Type Date Status Note Provider Nam e and Address Organization Details Recorded Time Tdap 12/07/2019 completed Jammie hernandez [facility] 02/03/2022 11:50:33 Hep A-Hep B 08/31/2005 [facility] Jammie hernandez [facility] 02/03/2022 11:50:33 Hep A-Hep B 11/09/2005 completed Jammie hernandez [facility] 02/03/2022 11:50:33 Tdap 08/20/2008 [facility] Jammie hernandez [facility] 02/03/2022 11:50:33 Past Encounters Encounter ID Performer Location Encounter Start Date Encounter Closed Date Diagnosis/Indication Diagnosis SNOMED-CT Code Diagnosis ICD10 Code Diagnosis Note [id number] MATIAS Chaudhary [facility] [address] [facility] e [address] [place] [phone] 02/03/2022 11:43:44 02/03/2022 13:04:33 Kidney stone 37542230 N20.0 Health Concerns Section Related Observation LastModified by Organization Detai ls LastModified Time None Recorded Concern Status LastModified by Organization Details LastModified Time None Recorded Advance Directives Directive None Recorded Payers Encounter Date Sequence Insurance Name Policy Number Policy Sutherland Covered Member ID Sutherland Member ID Guarantor Name 02/03/2022 1 [facility] [id number] Jose Winter [id number] Anu Velez Moy Notes Date Note [...] of nephrolithiasis. MATIAS Burton [address] [facility],[address], [place], [address], [facility] 02/03/2022 12:37:19 OBGyn Episode No OBEpisode recorded.
--- OUTSIDE RECORDS SUMMARY | 2024-08-08 13:34 | XMS_ITS | Patient Health Record ---
Author Organization [facility] Address [address] [place] [address] Care Team Providers Care Quality Assurance Project Manager Name Role Phone Mayank Morelos MD Primary [...] W/U Status Risk Notes Problem Essential hypertension (35863470) Essential (primary) hypertension (I10) Active confirmed Problem Type II diabetes mellitus without complication (823470225) Type 2 diabetes mellitus without complications (E11.9) Active confirmed Problem Hyperlipidemia (03056492) Other hyperlipidemia (E78.49) Active confirmed Plan Of Treatment No Information Insurance Providers Payer Name Payer Address Payer Phone Subscriber Number Group Number Insured Name Patient Relationship to Insured Coverage Start Date Coverage End Date [place] [id number] [place] [address] [address] [place], [place] [id number] [phone] [id number] Moy, Jose Spouse - patient is the spouse of the insured 9 Medical (General) History Medical History History ICD Code Obesity Breast cancer DM2 Hyperlipidemia Depression Renal calculi, 06/2010
[2024-08-08 13:35] VITALS: BP 91/59; PULSE 95; RESP 20; TEMP 36.7; O2SAT 96; BMI 26.8
[2024-08-08 13:48] LABS: Glucose, Point-of-Care* 206 mg/dl (60-115)
--- NOTE | 2024-08-08 14:02 | ED_ITS ---
HPI - Fever General Chief Complaint: Fever Stated Complaint: Fever Time Seen by Provider: 08/08/24 13:33 History of Present Illness HPI Narrative: This 59-year-old female comes in with her because of report of fever. She measured a temperature to 103? F prior to arrival and did take Tylenol before coming here. She arrives here with a temperature at 98? F but does have lower blood pressure at 91/59. She had a kidney stone and was seen here 3 days ago for that purpose. She states that she is no longer having any flank pain or abdominal pain. She does not report any dysuria symptoms. She has a rare cough but does not report any real upper respiratory infection symptoms. Related Data Home Medications ?Medication ?Instructions ?Recorded ?Confirmed atorvastatin 20 mg tablet 20 mg PO DAILY 06/24/23 08/05/24 losartan 100 1 tab PO DAILY 06/24/23 08/05/24 mg-hydrochlorothiazide 12.5 mg tablet metformin 1,000 mg tablet 1,000 mg PO BID 06/24/23 08/05/24 dulaglutide 1.5 mg/0.5 mL 1.5 mg subcut 08/05/24 subcutaneous pen injector (Trulicity) Previous Rx's ?Medication ?Instructions ?Recorded insulin glargine 100 unit/mL (3 8 unit (0.08 mL) subcut QPM #3 mL 06/24/23 mL) subcutaneous pen (Lantus Solostar U-100 Insulin) hydrocodone 5 mg-acetaminophen 325 1 tab PO Q8H PRN pain #10 tabs 08/05/24 mg tablet ondansetron 4 mg disintegrating 4 mg PO Q8H PRN nausea and 08/05/24 tablet vomiting #20 tabs tamsulosin 0.4 mg capsule (Flomax) 0.4 mg PO DAILY #10 caps 08/05/24 cephalexin 500 mg capsule 500 mg PO TID 7 days #21 caps 08/08/24 Allergies Allergy/AdvReac Type Severity Reaction Status Date / Time Sulfa (Sulfonamide Allergy Unknown Verified 06/24/23 19:40 Antibiotics) Review of Systems Status of ROS Reports: 10 or more systems reviewed and unremarkable except as noted in History and below Narrative Constitutional: No weight gain or loss. Eyes: No discharge. No vision changes. HENT: No congestion, no sore throat, no ear pain. Cardiovascular: No chest pain, no palpitations. Respiratory: No shortness of breath, no wheezes, no cough. Gastrointestinal: No abdominal pain, no vomiting, no diarrhea. Genitourinary: No dysuria, no hematuria. Musculoskeletal: Normal range of motion. Skin: No rashes, no pruritis. Neurological: No dizziness, weakness, sensory change, speech change. Endo/Heme/Allergies: No bruising or bleeding. No polydipsia. Pysch: no suicidality, no anxiety, no insomnia. All other systems reviewed and are negative. [facility] Social History Smoking Status: Never smoker Do you use any of these nicotine containing products: None Second hand tobacco smoke exposure: No How often do you have a drink containing alcohol: never AUDIT-C Alcohol total score: 0 Non-prescribed substance use: denies use service: No Exam Narrative Exam Narrative: Constitutional: Well-developed, well-nourished, no acute distress. HEENT: Normocephalic, atraumatic. Neck: Normal range of motion. Nontender. Supple. Heart: Regular. No murmurs. Normal rate. Intact distal pulses. Lungs: Clear to auscultation. No chest discomfort. No wheezes, rhonchi, or rales. Abdomen: Normal bowel sounds. Nontender. No rebound tenderness. Genitalia: Deferred. Back: No midline tenderness. Normal range of motion. Extremities: Normal range of motion. No injury. Skin: Intact. No rash. Warm. No erythema or pallor. Neurologic: No altered sensation. No weakness. Alert and oriented. Psychiatric: No suicidality. No anxiety or depression. No insomnia. Nursing notes and vitals signs are reviewed. Const Vital Signs, click to edit/add: Vital Signs - 24 hr 08/08/24 13:35 08/08/24 13:48 Temperature 98.0 F Pulse Rate [Pulse Oximeter] 95 Respiratory Rate 20 Blood Pressure [Right Upper Arm] 91/59 L Pulse Oximetry 96 Oxygen Delivery Method Room Air Room Air Course Vital Signs Vital signs: Initial Vital Signs Temperature 98.0 F 08/08/24 13:35 Temperature Source Oral 08/08/24 13:35 Pulse Rate 95 08/08/24 13:35 Respiratory Rate 20 08/08/24 13:35 Blood Pressure 91/59 L 08/08/24 13:35 Blood Pressure Mean 69 L 08/08/24 13:35 Blood Pressure Position Sitting 08/08/24 13:35 Pulse Oximetry 96 08/08/24 13:35 Oxygen Delivery Method Room Air 08/08/24 13:35 Vital Signs Temperature 98.0 F 08/08/24 13:35 Pulse Rate 95 08/08/24 13:35 Respiratory Rate 20 08/08/24 13:35 Blood Pressure 91/59 L 08/08/24 13:35 Pulse Oximetry 96 08/08/24 13:35 Oxygen Delivery Method Room Air 08/08/24 13:35 Temperature 98.0 F 08/08/24 13:35 Pulse Rate 95 08/08/24 13:35 Respiratory Rate 20 08/08/24 13:35 Blood Pressure 91/59 L 08/08/24 13:35 Pulse Oximetry 96 08/08/24 13:35 Oxygen Delivery Method Room Air 08/08/24 13:48 Medications Administered Medications: Discontinued Medications Generic Name Dose Route Start Last Admin Trade Name Lennyq PRN Reason Stop Dose Admin Sodium Chloride 1,000 mls @ 1,000 mls/hr 08/08/24 14:15 08/08/24 14:25 0.9 % Sodium Chloride 1000 Ml IV 08/08/24 15:14 1,000 mls/hr .Q1H PAULO Administration Ceftriaxone Sodium 1 gm/ 100 mls @ 200 mls/hr 08/08/24 14:33 08/08/24 15:00 Sodium Chloride IVPB 08/08/24 14:34 200 mls/hr ONCE ONE Administration MDM - Fever MDM Narrative Medical decision making narrative: This patient comes in reporting a fever but arrives here with normal temperature after taking Tylenol. She does have lower blood pressure at 91/59. She was seen here 3 days ago and diagnosed with a 6 mm kidney stone in the left distal ureter at the ureterovesical junction. She has not been taking an antibiotic. Urinalysis today does show some evidence of infection. After blood cultures were obtained the patient did receive a g of Rocephin. Lactate level is in normal range. The patient did receive a L of normal saline intravenously. She does have some renal insufficiency likely related to the recent ureteral stone. She is okay to be discharged home and received a prescription for Keflex. A recheck with her primary physician is recommended. Lab Data Labs: Lab Results 08/08/24 08/08/24 08/08/24 Range/Units 13:40 13:48 14:10 WBC (4.50-11.00) K/uL RBC (4.00-5.20) m/uL Hgb (12.0-16.0) gm/dL Hct (33.0-51.0) % MCV (80-100) fL MCH (26-34) pg MCHC (32-36) gm/dL RDW Coeff of Cass (11.5-15.5) % Plt Count (140-440) K/uL Neut % (Auto) (42.0-72.0) % Lymph % (Auto) (20-44) % Dare % (Auto) (0.0-11.0) % Eos % (Auto) (0.0-7.0) % Baso % (Auto) (0.0-3.0) % Neut # (Auto) (1.7-7.0) K/uL Lymph # (Auto) (0.90-2.90) K/uL Dare # (Auto) (0.00-0.90) K/UL Eos # (Auto) (0.00-0.50) K/uL Baso # (Auto) (0.00-0.30) K/uL Abs Immat Gran (auto) (0.00-0.30) K/uL Imm/Tot Granulo (auto) % Sodium (135-149) mmol/L Potassium (3.6-5.1) mmol/L Chloride (96-114) mmol/L Carbon Dioxide (20-32) mmol/L Anion Gap (7-15) mEq/L BUN (7-30) mg/dL Creatinine (0.5-1.5) mg/dL Estimated Creat Clear Estimated GFR ml/min Glucose (60-115) mg/dL Lactate (0.5-1.9) mmol/L Calcium (8.4-10.6) mg/dL Urine Color Yellow (Yellow) Urine Appearance Cloudy A (Clear) Urine pH 5.5 (5.0-8.5) Ur Specific [place] 1.020 (1.000-1.030) Urine Protein 3+ A (Negative) Urine Glucose (UA) Negative (Negative) Urine Ketones Trace A (Negative) Urine Blood 2+ A (Negative) Urine Nitrite Negative (Negative) Urine Bilirubin Negative (Negative) Urine Urobilinogen 0.2 (0.2-1.0) Ur Leukocyte Esterase Trace A (Negative) Urine RBC 0-2 (0-2) Urine WBC 5-10 A (0-5) Ur Squamous Epith Cells Few (None-Few) Amorphous Sediment Moderate A (None) Urine Bacteria Few A (None) SARS-CoV-2 (PCR) Negative SARS-CoV-2 (Negative) Influenza Type A (PCR) Negative PCR FLU A (Negative) Influenza Type B (PCR) Negative PCR FLU B (Negative) RSV (PCR) Negative PCR RSV (Negative) POC Glucose 206 H (60-115) mg/dl 08/08/24 Range/Units 14:20 WBC 7.15 (4.50-11.00) K/uL RBC 4.24 (4.00-5.20) m/uL Hgb 11.5 L (12.0-16.0) gm/dL Hct 34.2 (33.0-51.0) % MCV 81 (80-100) fL MCH 27 (26-34) pg MCHC 34 (32-36) gm/dL RDW Coeff of Cass 12.9 (11.5-15.5) % Plt Count 165 (140-440) K/uL Neut % (Auto) 86.0 H (42.0-72.0) % Lymph % (Auto) 6.4 L (20-44) % Dare % (Auto) 7.3 (0.0-11.0) % Eos % (Auto) 0.1 (0.0-7.0) % Baso % (Auto) 0.1 (0.0-3.0) % Neut # (Auto) 6.10 (1.7-7.0) K/uL Lymph # (Auto) 0.50 L (0.90-2.90) K/uL Dare # (Auto) 0.50 (0.00-0.90) K/UL Eos # (Auto) 0.01 (0.00-0.50) K/uL Baso # (Auto) 0.01 (0.00-0.30) K/uL Abs Immat Gran (auto) 0.01 (0.00-0.30) K/uL Imm/Tot Granulo (auto) 0.1 % Sodium 130 L (135-149) mmol/L Potassium 3.1 L (3.6-5.1) mmol/L Chloride 92 L (96-114) mmol/L Carbon Dioxide 22 (20-32) mmol/L Anion Gap 16 H (7-15) mEq/L BUN 52 H (7-30) mg/dL Creatinine 2.5 H (0.5-1.5) mg/dL Estimated Creat Clear 23.56 Estimated GFR 22 ml/min Glucose 203 H (60-115) mg/dL Lactate 1.4 (0.5-1.9) mmol/L Calcium 8.6 (8.4-10.6) mg/dL Urine Color (Yellow) Urine Appearance (Clear) Urine pH (5.0-8.5) Ur Specific [place] (1.000-1.030) Urine Protein (Negative) Urine Glucose (UA) (Negative) Urine Ketones (Negative) Urine Blood (Negative) Urine Nitrite (Negative) Urine Bilirubin (Negative) Urine Urobilinogen (0.2-1.0) Ur Leukocyte Esterase (Negative) Urine RBC (0-2) Urine WBC (0-5) Ur Squamous Epith Cells (None-Few) Amorphous Sediment (None) Urine Bacteria (None) SARS-CoV-2 (PCR) (Negative) Influenza Type A (PCR) (Negative) Influenza Type B (PCR) (Negative) RSV (PCR) (Negative) POC Glucose (60-115) mg/dl Imaging Data CT scan - abdomen: Radiologist's impression: Persistent mild left hydroureteronephrosis, the previously visualized obstructing 6 millimeter calculus in the longer visualized. These findings likely represent a recently passed urinary calculus. A superimposed infection may have a similar appearance. Correlation with urinalysis is advised. Discharge Plan Discharge Clinical Impression: Urinary tract infection Patient Disposition: Home w/ Parent or Adult Condition: Improved Additional Instructions: Take medication as prescribed. Take plenty of fluids orally. Follow up with MD return if worsening. Prescriptions: New cephalexin 500 mg capsule 500 mg PO TID 7 Days Qty: 21 0RF No Action Trulicity 1.5 mg/0.5 mL pen injector 1.5 mg subcut tamsulosin [Flomax] 0.4 mg capsule 0.4 mg PO DAILY Qty: 10 3RF ondansetron 4 mg tablet,disintegrating 4 mg PO Q8H PRN (Reason: nausea and vomiting) Qty: 20 0RF hydrocodone-acetaminophen 5-325 mg tablet 1 tab PO Q8H PRN (Reason: pain) Qty: 10 0RF atorvastatin 20 mg tablet 20 mg PO DAILY metformin 1,000 mg tablet 1,000 mg PO BID losartan-hydrochlorothiazide 100-12.5 mg tablet 1 tab PO DAILY insulin glargine [Lantus Solostar U-100 Insulin] 100 unit/mL (3 mL) insulin pen 8 unit subcut QPM Qty: 3 0RF Follow Up/Referrals: Rich Dupree MD [Primary Care Provider] - Stand Alone Forms: [facility] Info Instructions
[2024-08-08] MEDS: 0.9 % SODIUM CHLORIDE 1000 ml 1,000 ML IV (14:25)
[2024-08-08 14:26] LABS: PCR FLU A Negative PCR FLU A (Negative); PCR FLU B Negative PCR FLU B (Negative); PCR RSV Negative PCR RSV (Negative); SARS PCR* Negative SARS-CoV-2 (Negative)
[2024-08-08 14:27] LABS: Appearance Urine Cloudy (Clear); Bilirubin Urine Negative (Negative); Blood Urine 2+ (Negative); Color Urine Yellow (Yellow); Glucose Urine Negative (Negative); Ketones Urine Trace (Negative); Leukocyte Esterase Urine Trace (Negative); Nitrite Urine Negative (Negative); Protein Urine 3+ (Negative); Urobilinogen Urine 0.2 (0.2-1.0); pH Urine 5.5 (5.0-8.5)
[2024-08-08 14:27] LABS: Basophils Absolute Auto 0.01 K/uL (0.00-0.30); Basophils Percent Auto 0.1 % (0.0-3.0); Eosinophils Absolute Auto 0.01 K/uL (0.00-0.50); Eosinophils Percent Auto 0.1 % (0.0-7.0); Hematocrit 34.2 % (33.0-51.0); Hemoglobin* 11.5 gm/dL (12.0-16.0); Immature Granulocytes Abs Auto 0.01 K/uL (0.00-0.30); Immature Granulocytes Pct Auto 0.1 %; Lymphocytes Percent Auto 6.4 % (20-44); Mean Corpuscular HGB Conc 34 gm/dL (32-36); Mean Corpuscular Hemoglobin 27 pg (26-34); Mean Corpuscular Volume 81 fL (80-100); Monocytes Percent Auto 7.3 % (0.0-11.0); Platelet Count* 165 K/uL (140-440); RDW Coefficient of Variation % 12.9 % (11.5-15.5); Red Blood Count 4.24 m/uL (4.00-5.20); White Blood Count* 7.15 K/uL (4.50-11.00)
[2024-08-08 14:28] LABS: Lactate* 1.4 mmol/L (0.5-1.9)
--- NOTE | 2024-08-08 14:29 | CRLHL7_ITS ---
For Patients: As a result of the Century Cures Act, medical imaging exams and procedure reports are released immediately into your electronic medical record. You may view this report before your referring provider. If you have questions, please contact your health care provider. INDICATION: Left flank pain. TECHNIQUE: Multiplanar CT examination of the abdomen and pelvis was performed without the use of intravenous contrast. COMPARISON: CT abdomen pelvis 08/05/2024. FINDINGS: Lower chest: No focal consolidation. Normal heart size. No pleural effusions or pneumothorax. Subsegmental atelectasis. Bilateral breast prosthesis. Liver: Unremarkable. Gallbladder: Unremarkable. Biliary: Unremarkable. Pancreas: Within normal limits. Spleen: Unremarkable. Adrenal glands: Unremarkable. Renal/ureters/bladder: The left kidney is mildly edematous with mild perinephric fat stranding. Persistent mild left hydroureteronephrosis without obstructing urolithiasis identified on today`s examination. The right kidney is normal in size without obstructive uropathy. The bladder is within normal limits. Limited evaluation for renal masses without the use of intravenous contrast. Pelvis: Unremarkable uterus. No adnexal masses. Gastrointestinal: No bowel wall thickening or bowel obstruction. Normal appendix. No significant colonic diverticulosis. Mild colonic stool burden. Vasculature: No aortic aneurysm. Mild atherosclerotic calcifications. Lymph nodes: No pathologic lymphadenopathy by size criteria. Peritoneum: No free fluid or pneumoperitoneum. No drainable fluid collections. Abdominal wall/soft tissues: Unremarkable. Bones: No acute osseous abnormalities. IMPRESSION: Persistent mild left hydroureteronephrosis, the previously visualized obstructing 6 millimeter calculus in the longer visualized. These findings likely represent a recently passed urinary calculus. A superimposed infection may have a similar appearance. Correlation with urinalysis is advised. Please note that all CT scans at this facility use dose modulation, iterative reconstruction, and/or weight-based dosing when appropriate to reduce radiation dose to as low as reasonably achievable. Dictated by Blake Oglesby MD @ 08/08/2024 3:24:18 PM (Electronically Signed)
[2024-08-08 14:32] LABS: Slide Review Reflex No
[2024-08-08 14:39] LABS: Chloride* 92 mmol/L (96-114)
[2024-08-08 14:40] LABS: Potassium* 3.1 mmol/L (3.6-5.1); Sodium* 130 mmol/L (135-149)
[2024-08-08 14:43] LABS: Anion Gap 16 mEq/L (7-15); Blood Urea Nitrogen* 52 mg/dL (7-30); Calcium* 8.6 mg/dL (8.4-10.6); Carbon Dioxide* 22 mmol/L (20-32); Creatinine* 2.5 mg/dL (0.5-1.5); Est. Creatinine Clearance* 23.56; Estimated Glomerular Filt Rate 22 ml/min; Glucose* 203 mg/dL (60-115)
[2024-08-08 14:58] LABS: RBC Urine 0-2 (0-2)
[2024-08-08 14:59] LABS: Amorphous Sediment Urine Moderate; Bacteria Urine Few; Squamous Epithelial Cell Urine Few (None-Few)
[2024-08-08] MEDS: cefTRIAXone 1 GM in 0.9 % SODIUM CHLORIDE Mini-bag 100 ML IVPB (15:00)
--- OUTSIDE RECORDS SUMMARY | 2024-08-08 15:06 | XMS_ITS | Clinical Summary ---
Author Organization [employer] [facility] Address [address] [place] [address] Care Team Providers Care Band Salvager Name Role Phone Rich Dupree MD Primary Care Provider [phone]- [phone] Allergies Active Allergy Reactions Criticality Noted Date [...] 36 mL 3 09/01/19 24 Active Insulin [place], Disposable, (Pen Needle) 32 gauge x 5/32Indications: [...] Type Department Care Team Description 08/08/2024 Telephone [facility] [address] [place] [address] Rich Dupree MD Kidney Stone; Fever 08/05/2024 Orders Only [facility] Scanner 1 scan: (1-Ord) [facility], CT ABDOMEN PELVIS W CON, 08/05/2024 08/05/2024 Orders Only [facility] Scanner 1 scan: (1-Ord) [place], ABDOMEN LIMITED, 08/05/2024 07/24/2024 Refill [facility] [address] [place] [address] Rich Dupree MD Refill Request (Atorvastatin) 05/24/2024 9:50 AM PARTS DESIGNER Office Visit [facility] [address] [place] [address] Rich Dupree MD Diabetes 05/23/2024 Travel 05/21/2024 Refill [facility] [address] [place] [address] Rich Dupree MD Refill Request (Losartan Potassium [...] on file Legal Sex Female 5:25 AM PARTS DESIGNER Gender Identity Not on file Sexual Orientation Not on file Obstetrics History Para Term AB IAB SAB Ectopic Multiple Livin g Live Births 5 5 Date Outcome GA Total Labor Labor/2nd/3rd Weight Sex Type Anes PTL Cyndi A1 A5 Name Clin Para Para Para Para Para Last Filed Vital Signs Vital Sign Reading Time Taken Comments Blood Pressure 131/82 05/24/2024 10:05 AM PARTS DESIGNER Pulse 80 05/24/2024 10:05 AM PARTS DESIGNER Temperature 36.6 C (97.9 F) 09/30/2021 8:13 AM CDT Respiratory Rate 16 12/27/2016 9:09 AM CDT Oxygen Saturation 98% 05/24/2024 10:05 AM PARTS DESIGNER Inhaled Oxygen Concentration - - Weight 82 kg (180 lb 11.2 oz) 05/24/2024 10:05 A M PARTS DESIGNER Height 169.7 cm (5' 6.81) 02/08/2023 3:15 PM CD T Body Mass Index 28.46 02/08/2023 3:15 PM CDT Plan of Treatment Upcoming Encounters Date Type Department Care Team (Late st Contact Info) Description 11/26/2024 9:05 AM CDT Office Visit [facility] [address] [place] [address] Rich Dupree MD [address] [place] [address] Health Maintenance Due Date Last Done Comments [...] Completed 09/29/2022 Medical Devices Implanted Type Area Carbon Capture Power Plant Operator Device Identifier Shelf Expiration Date Model / Serial / Lot Implnt Mammary [id number] - [id number] Implanted:Qty: 1 on 11/24/2010 at [facility] Explanted:at [facility] (Quantity not on file) Left: Breast J And J QuadROI [id number] # / [id number] / [id number] implnt Mammary [id number] Implanted:Qty: 1 on 11/24/2010 at [facility] Explanted:at [facility] (Quantity not on file) Right: Breast J And J QuadROI [id number] # / [id number] / [id number] Procedures Procedure Name Priority Date/Time Associated Diagnosis Comments SCAN-CT INTERPRETATION 08/05/2024 12:00 AM CDT SCAN-ULTRASOUND REPORT 08/05/2024 12:00 AM CDT HEMOGLOBIN A1C MONITORING (POCT) Routine 05/24/2024 9:55 AM PARTS DESIGNER Type 2 diabetes mellitus with microalbuminuria, without long-term current use of insulin (HC) LIPID PANEL Routine 05/24/2024 9:55 AM PARTS DESIGNER Type 2 diabetes mellitus with microalbuminuria, without long-term current use of insulin (HC) LC HIV-1/O/2, 4TH GENERATION Routine 09/29/2022 1:04 PM CDT Screening for HIV (human immunodeficiency virus) ELECTRICIAN SOUND THIN PREP PAP SCREEN IMAGED Routine 12/07/2019 1:45 PM CDT Cervical cancer screening COLONOSCOPY 12/08/2018 8:58 AM CDT Screen for colon cancer ANTI HCV Routine 04/14/2011 3:28 PM PARTS DESIGNER Elevated LFTs from Last 3 Months or Most Recently Relevant to Health Maintenance Results * SCAN-ULTRASOUND REPORT (08/05/2024 12:00 AM CDT) Anatomical Region Laterality Modality Other us Scanner OTHER Final Result * SCAN-CT INTERPRETATION (08/05/2024 12:00 AM CDT) Anatomical Region Laterality Modality Other us Scanner OTHER Final Result * (ABNORMAL) POCT Hemoglobin A1C Monitoring (05/24/2024 9:55 AM PARTS DESIGNER) POC HEMOGLOBIN A1C 6.9(H) <6.0 % OF TOTAL HGB [facility] Comment: Any point of care results exhibiting inconsistency with the patient's clinical status should be repeated using a different testing method. Blood BLOOD SPECIMEN / Unknown 05/24/2024 9:55 AM PARTS DESIGNER 05/24/2024 9:55 AM PARTS DESIGNER Rich Dupree MD CHEMISTRY Final Resu lt [facility] [address] [place] [address], [place] [phone] [facility] [address] [place] [address] * LIPID PANEL (05/24/2024 9:55 AM PARTS DESIGNER) [facility] CHOLESTEROL, TOTAL 148 <200 mg/dL [facility] HDL CHOLESTEROL 53 > OR = 50 mg/dL [facility] TRIGLYCERIDES 116 <150 mg/dL [facility] LDL-CHOLESTEROL 75 mg/dL (calc) [facility] Comment: Reference range: <100 Desirable range <100 mg/dL for primary prevention; <70 mg/dL for patients with CHD or diabetic patients with > or = 2 CHD risk factors. LDL-C is now calculated using the Coleman-Sage calculation, which is a validated novel method providing better accuracy than the Friedewald equation in the estimation of LDL-C. Coleman SS et al. JUAN CARLOS. 2013;310(19): 0448-2287 (http://education.Rising/faq/YHX855) CHOL/HDLC RATIO 2.8 <5.0 (calc) [facility] NON HDL CHOLESTEROL 95 <130 mg/dL (calc) [facility] Comment: For patients with diabetes plus 1 major ASCVD risk factor, treating to a non-HDL-C goal of <100 mg/dL (LDL-C of <70 mg/dL) is considered a therapeutic option. Blood BLOOD SPECIMEN / Unknown 05/24/2024 9:55 AM PARTS DESIGNER 05/24/2024 9:56 AM PARTS DESIGNER Rich Dupree MD CHEMISTRY Final Resu lt [facility] [address] [address], [place] [phone] [facility] [address] [address] * LC HIV-1/O/2, 4TH GENERATION (09/29/2022 1:04 PM CDT) HIV Scr 4th Gen Non Reactive Non Reactive 10/01/2022 10:06 PM CDT [facility] ([facility]) Comment: HIV Negative HIV-1/HIV-2 antibodies and HIV-1 p24 antigen were NOT detected. There is no laboratory evidence of HIV infection. Blood BLOOD SPECIMEN / Unknown Venipuncture / Unknown 09/29/2022 1:04 PM CDT 09/29/2022 1:08 PM CDT Narrative [facility] ([facility]) - 10/01/2022 10:06 PM CDT Performed at: [address] [place] [id number] Programmer Engineering And Scientific: Jesse Price MD, Phone: [phone] us [facility] Final Res ult [facility] ([facility]) [address] [place] [address], * ELECTRICIAN SOUND THIN PREP PAP SCREEN IMAGED (12/07/2019 1:45 PM CDT) Pathologist [facility] Case Report Gynecologic Cytology Report Case: [id number] Authorizing Provider: Rich Dupree MD Collected: 12/07/2019 1345 Ordering Location: [facility] Received: 12/07/2019 1421 Clinic First Screen: Jamie Soto Specimen: ELECTRICIAN SOUND ThinPrep Vial Screening, Cervical 12/13/2019 9:04 AM CDT [facility] ENTRAL LABORATORY INTERPRETATION/ RESULT NEGATIVE FOR INTRAEPITHELIAL LESION OR MALIGNANCY (NIL) (none) 12/13/2019 9:04 AM CDT [facility] LABORAT[facility] IMEN ADEQUACY Satisfactory for evaluation Endocervical component present Scant cellularity 12/13/2019 9:04 AM CDT [facility] HPV REQUEST HPV and PAP 12/13/2019 9:04 AM CDT [facility] Date of LMP 2011 12/13/2019 9:04 AM CDT [facility] Last Pap Date 01/19/16 12/13/2019 9:04 AM CDT [facility] Last Pap Result NIL 0 9:04 AM CDT [facility] Abnormal Pap or Clovis Bx in last 5 years No 12/13/2019 9:04 AM CDT [facility] Menstrual Status Postmenopausal 12/13/2019 9:04 AM CDT [facility] Clovis Bx Done Today No 12/13/2019 9:04 AM CDT [facility] Additional Information None given 12/13/2019 9:04 AM CDT [facility] Comment: Cytology is screened at [facility] Central Laboratory - [address], [place] [address] and [facility] - [address] [place] [address] and [facility] Laboratory - [address] [place] [address] Interpreted at [facility] Central Laboratory - [address], [place] [address] Automated Review Successful 12/13/2019 9:04 AM T [facility] Comment:Specimen processed s uccessfully by automated deodorizer operator device, ThinPrep Imaging System, [employer] ANCILLARY TESTING ELECTRICIAN SOUND HPV Ordered, Please see separate report 12/13/2019 9:04 AM T [facility] Note The pap test is a [...] and malignant lesions. 12/13/2019 9:04 AM CDT [facility] Other (Cervical) Non-Blood / Unknown 12/07/2019 1:45 PM CDT 12/07/2019 2:21 PM CDT us Rich Dupree MD PATHOLOGY/CYTOLOGY Final R esult [facility] LAB[facility]ATORY [address] [place] [address], [place] * COLONOSCOPY (12/08/2018 8:58 AM CDT) [...] reponse to care. [facility] flow[facility] and nursing notes for moderate sedation details. Total physician intraservice time was 17 minutes. Coleman Estrella MD 12/08/2018 9:46:37 AM This report has been signed electronically. Note Initiated On: 12/08/2018 8:58 AM Procedure Code(s): --- Professional --- 27796, Colonoscopy, flexible; diagnostic, including collection of specimen(s) bybrushing or washing, when performed (separateprocedure) Diagnosis Code(s): --- Professional --- Z12.11, Encounter for screening formalignant neoplasm of colon D17.5, Benign lipomatous neoplasm of intra-abdominal organs CPT copyright 2018 [employer]. All rights reserved. The codes documented in this report are preliminary and upon tempering oven operator reviewmay be revised to meet current compliance requirements. Scope In: 9:26:23 AM Scope Withdrawal Time 0 hours 10 minutes 42 seconds Scope Out: 9:41:16 AM us Coleman Estrella MD PROCEDURE ORD Final Res ult * ANTI HCV (04/14/2011 3:28 PM PARTS DESIGNER) ANTI HCV Non-reacti ve [facility] Blood specimen (specimen) BLOOD SPECIMEN / Unknown 04/14/2011 3:28 PM PARTS DESIGNER 04/14/2011 3:09 PM PARTS DESIGNER Coleman Etsrella MD SEND OUTS Final Res ult [facility] [place] ZIP [address] [address] from Last 3 Months or Most Recently Relevant to Health Maintenance Insurance * Guarantor: Anu Winter Account Type Relation to Patient Date of Phone Billing Address Personal/Family Self 1965 [phone] (Work) [address] [place] [address] BLUE CROSS OF NON-IN[facility] Advance Directives * Full Code (Latest Code Status on File) Date Activated Date Inactivated Comments 06/11/2013 10:13 AM 06/12/2013 2:26 AM * Full Code Date Activated Date Inactivated Comments 11/24/2010 7:34 AM 11/24/2010 12:53 PM * Full Code Date Activated Date Inactivated Comments 11/24/2010 6:05 AM 11/24/2010 7:34 AM Care Teams Band Salvager Relationship Specialty Start Date End Date Rich Dupree MD [address] [place] [address] PCP - General Family Practice 10/09/18
[2024-08-08 16:08] VITALS: BP 110/59; PULSE 76; RESP 16; TEMP 36.6; O2SAT 97
--- NOTE | 2024-08-09 06:23 | ED.NURSE ---
blood cultures resulted gram negative rods, lab result printed out and given to MD Dolan, verbal that he will call pt to follow up.
== END 2024-08-08 16:10 | disposition home or self-care (01) ==
PROVIDERS: Family Medicine; Emergency Provider Emergency Medicine Emergency Medical Services; PCP Surgery
DX: N39.0 Urinary tract infection, site not specified (principal)
CPT/HCPCS: 36415; 74176; 80048; 81001; 82947; 83605; 85025; 87040; 87086; 87186; 87631; 87800; 96365; 99284; J0696; J7030

== ENCOUNTER 2024-08-09 09:41 | Inpatient (IN) | payer BC, SELFPAY ==
[2024-08-09] VITALS (17 sets, daily range): BP systolic 107–135; BP diastolic 63–72; PULSE 83–102; RESP 18–20; TEMP 36.5–40.3; O2SAT 88–98; BMI 27.4
--- OUTSIDE RECORDS SUMMARY | 2024-08-09 09:43 | XMS_ITS | Clinical Summary ---
Author Organization [employer] [facility] Address [address] [place] [address] Care Team Providers Care Esol Instructor Name Role Phone Rich Dupree MD Primary Care Provider [phone]- [phone] Allergies Active Allergy Reactions Criticality Noted Date [...] 36 mL 3 09/01/19 24 Active Insulin Colliers, Disposable, (Pen Needle) 32 gauge x 5/32Indications: [...] Type Department Care Team Description 08/08/2024 Telephone [facility] [address] [place] [address] Rich Dupree MD Kidney Stone; Fever 08/05/2024 Orders Only [facility] Scanner 1 scan: (1-Ord) [facility], CT ABDOMEN PELVIS W CON, 08/05/2024 08/05/2024 Orders Only [facility] Scanner 1 scan: (1-Ord) [place], ABDOMEN LIMITED, 08/05/2024 07/24/2024 Refill [facility] [address] [place] [address] Rich Dupree MD Refill Request (Atorvastatin) 05/24/2024 9:50 AM CAN FEEDER Office Visit [facility] [address] [place] [address] Rich Dupree MD Diabetes 05/23/2024 Travel 05/21/2024 Refill [facility] [address] [place] [address] Rich Dupree MD Refill Request (Losartan Potassium [...] on file Legal Sex Female 5:25 AM CAN FEEDER Gender Identity Not on file Sexual Orientation Not on file Obstetrics History Para Term AB IAB SAB Ectopic Multiple Livin g Live Births 5 5 Date Outcome GA Total Labor Labor/2nd/3rd Weight Sex Type Anes PTL Cyndi A1 A5 Name Clin Para Para Para Para Para Last Filed Vital Signs Vital Sign Reading Time Taken Comments Blood Pressure 131/82 05/24/2024 10:05 AM CAN FEEDER Pulse 80 05/24/2024 10:05 AM CAN FEEDER Temperature 36.6 C (97.9 F) 09/30/2021 8:13 AM CDT Respiratory Rate 16 12/27/2016 9:09 AM CDT Oxygen Saturation 98% 05/24/2024 10:05 AM CAN FEEDER Inhaled Oxygen Concentration - - Weight 82 kg (180 lb 11.2 oz) 05/24/2024 10:05 A M CAN FEEDER Height 169.7 cm (5' 6.81) 02/08/2023 3:15 PM CD T Body Mass Index 28.46 02/08/2023 3:15 PM CDT Plan of Treatment Upcoming Encounters Date Type Department Care Team (Late st Contact Info) Description 11/26/2024 9:05 AM CDT Office Visit [facility] [address] [place] [address] Rich Dupree MD [address] [place] [address] Health Maintenance Due Date Last Done Comments [...] Completed 09/29/2022 Medical Devices Implanted Type Area Front Loader Residential Driver Device Identifier Shelf Expiration Date Model / Serial / Lot Implnt Mammary [id number] - [id number] Implanted:Qty: 1 on 11/24/2010 at [facility] Explanted:at [facility] (Quantity not on file) Left: Breast J And J [employer] [id number] # / [id number] / [id number] implnt Mammary [id number] Implanted:Qty: 1 on 11/24/2010 at [facility] Explanted:at [facility] (Quantity not on file) Right: Breast J And J [employer] [id number] # / [id number] / [id number] Procedures Procedure Name Priority Date/Time Associated Diagnosis Comments SCAN-CT INTERPRETATION 08/05/2024 12:00 AM CDT SCAN-ULTRASOUND REPORT 08/05/2024 12:00 AM CDT HEMOGLOBIN A1C MONITORING (POCT) Routine 05/24/2024 9:55 AM CAN FEEDER Type 2 diabetes mellitus with microalbuminuria, without long-term current use of insulin (HC) LIPID PANEL Routine 05/24/2024 9:55 AM CAN FEEDER Type 2 diabetes mellitus with microalbuminuria, without long-term current use of insulin (HC) LC HIV-1/O/2, 4TH GENERATION Routine 09/29/2022 1:04 PM CDT Screening for HIV (human immunodeficiency virus) DAY TRADER THIN PREP PAP SCREEN IMAGED Routine 12/07/2019 1:45 PM CDT Cervical cancer screening COLONOSCOPY 12/08/2018 8:58 AM CDT Screen for colon cancer ANTI HCV Routine 04/14/2011 3:28 PM CAN FEEDER Elevated LFTs from Last 3 Months or Most Recently Relevant to Health Maintenance Results * SCAN-ULTRASOUND REPORT (08/05/2024 12:00 AM CDT) Anatomical Region Laterality Modality Other us Scanner OTHER Final Result * SCAN-CT INTERPRETATION (08/05/2024 12:00 AM CDT) Anatomical Region Laterality Modality Other us Scanner OTHER Final Result * (ABNORMAL) POCT Hemoglobin A1C Monitoring (05/24/2024 9:55 AM CAN FEEDER) POC HEMOGLOBIN A1C 6.9(H) <6.0 % OF TOTAL HGB [facility] Comment: Any point of care results exhibiting inconsistency with the patient's clinical status should be repeated using a different testing method. Blood BLOOD SPECIMEN / Unknown 05/24/2024 9:55 AM CAN FEEDER 05/24/2024 9:55 AM CAN FEEDER Rich Dupree MD CHEMISTRY Final Resu lt [facility] [address] [place] [address], [place] [phone] [facility] [address] [place] [address] * LIPID PANEL (05/24/2024 9:55 AM CAN FEEDER) [facility] CHOLESTEROL, TOTAL 148 <200 mg/dL [facility] HDL CHOLESTEROL 53 > OR = 50 mg/dL [facility] TRIGLYCERIDES 116 <150 mg/dL [facility] LDL-CHOLESTEROL 75 mg/dL (calc) [facility] Comment: Reference range: <100 Desirable range <100 mg/dL for primary prevention; <70 mg/dL for patients with CHD or diabetic patients with > or = 2 CHD risk factors. LDL-C is now calculated using the Coleman-Sage calculation, which is a validated novel method providing better accuracy than the Friedewald equation in the estimation of LDL-C. Coleman SS et al. JUAN CARLOS. 2013;310(19): 7483-1459 (http://education.SOMNIUM Technologies/faq/YFT000) CHOL/HDLC RATIO 2.8 <5.0 (calc) [facility] NON HDL CHOLESTEROL 95 <130 mg/dL (calc) [facility] Comment: For patients with diabetes plus 1 major ASCVD risk factor, treating to a non-HDL-C goal of <100 mg/dL (LDL-C of <70 mg/dL) is considered a therapeutic option. Blood BLOOD SPECIMEN / Unknown 05/24/2024 9:55 AM CAN FEEDER 05/24/2024 9:56 AM CAN FEEDER Rich Dupree MD CHEMISTRY Final Resu lt [facility] [address] [address], [place] [phone] [facility] [address] [address] * LC HIV-1/O/2, 4TH GENERATION (09/29/2022 1:04 PM CDT) HIV Scr 4th Gen Non Reactive Non Reactive 10/01/2022 10:06 PM CDT [facility] ([facility]) Comment: HIV Negative HIV-1/HIV-2 antibodies and HIV-1 p24 antigen were NOT detected. There is no laboratory evidence of HIV infection. Blood BLOOD SPECIMEN / Unknown Venipuncture / Unknown 09/29/2022 1:04 PM CDT 09/29/2022 1:08 PM CDT Narrative [facility] ([facility]) - 10/01/2022 10:06 PM CDT Performed at: [address] [place] [id number] Pickle Sorter: Jesse Price MD, Phone: [phone] us [facility] Final Res ult [facility] ([facility]) [address] [place] [address], * DAY TRADER THIN PREP PAP SCREEN IMAGED (12/07/2019 1:45 PM CDT) Pathologist [facility] Case Report Gynecologic Cytology Report Case: [id number] Authorizing Provider: Rich Dupree MD Collected: 12/07/2019 1345 Ordering Location: [facility] Received: 12/07/2019 1421 Clinic First Screen: Jamie Soto Specimen: DAY TRADER ThinPrep Vial Screening, Cervical 12/13/2019 9:04 AM CDT [facility]-C ENTRAL LABORATORY INTERPRETATION/ RESULT NEGATIVE FOR INTRAEPITHELIAL LESION OR MALIGNANCY (NIL) (none) 12/13/2019 9:04 AM CDT [facility]-C ENTRAL LABORATORY IMEN ADEQUACY Satisfactory for evaluation Endocervical component present Scant cellularity 12/13/2019 9:[address] [facility] HPV REQUEST HPV and PAP 12/13/2019 9:[address] [facility] Date of LMP 2011 12/13/2019 9:04 AM CDT [facility] Last Pap Date 01/19/16 12/13/2019 9:04 AM CDT [facility] Last Pap Result NIL 0 9:04 AM CDT [facility] Abnormal Pap or Vanderbilt Bx in last 5 years No 12/13/2019 9:[address] [facility] Menstrual Status Postmenopausal 12/13/2019 9:[address] [facility] Vanderbilt Bx Done Today No 12/13/2019 9:04 AM CDT [facility] Additional Information None given 12/13/2019 9:04 AM CDT [facility] Comment: Cytology is screened at [facility] Central Laboratory - [address], [place] [address] and [facility] - [address] [place] [address] and [facility] Laboratory - [address] [place] [address] Interpreted at [facility], Central Laboratory - [address], [place] [address] Automated Review Successful 12/13/2019 9:04 AM T [facility] Comment:Specimen processed s uccessfully by automated deputy sheriff civil division device, ThinPrep Imaging System, [employer] ANCILLARY TESTING DAY TRADER HPV Ordered, Please see separate report 12/13/2019 9:[address] [facility] Note The pap test is a [...] and malignant lesions. 12/13/2019 9:[address] [facility] Other (Cervical) Non-Blood / Unknown 12/07/2019 1:45 PM CDT 12/07/2019 2:21 PM CDT us Rich Dupree MD PATHOLOGY/CYTOLOGY Final R esult [facility]-CENTRAL LABORATORY [address] [place] [address], [place] * COLONOSCOPY (12/08/2018 8:58 AM CDT) [...] reponse to care. [facility] flow[facility] and nursing notes for moderate sedation details. Total physician intraservice time was 17 minutes. Coleman Estrella MD 12/08/2018 9:46:37 AM This report has been signed electronically. Note Initiated On: 12/08/2018 8:58 AM Procedure Code(s): --- Professional --- 20326, Colonoscopy, flexible; diagnostic, including collection of specimen(s) bybrushing or washing, when performed (separateprocedure) Diagnosis Code(s): --- Professional --- Z12.11, Encounter for screening formalignant neoplasm of colon D17.5, Benign lipomatous neoplasm of intra-abdominal organs CPT copyright 2018 [employer]. All rights reserved. The codes documented in this report are preliminary and upon underwriter mortgage loan reviewmay be revised to meet current compliance requirements. Scope In: 9:26:23 AM Scope Withdrawal Time 0 hours 10 minutes 42 seconds Scope Out: 9:41:16 AM us Coleman Estrella MD PROCEDURE ORD Final Res ult * ANTI HCV (04/14/2011 3:28 PM CAN FEEDER) ANTI HCV Non-reacti ve [facility] Blood specimen (specimen) BLOOD SPECIMEN / Unknown 04/14/2011 3:28 PM CAN FEEDER 04/14/2011 3:09 PM CAN FEEDER Coleman Estrella MD SEND OUTS Final Res ult [facility] INTERNAL ZIP [address] [address] from Last 3 Months or Most Recently Relevant to Health Maintenance Insurance * Guarantor: Anu Winter Account Type Relation to Patient Date of Phone Billing Address Personal/Family Self 1965 [phone] (Work) [address] [place] [address] BLUE CROSS OF [facility] Advance Directives * Full Code (Latest Code Status on File) Date Activated Date Inactivated Comments 06/11/2013 10:13 AM 06/12/2013 2:26 AM * Full Code Date Activated Date Inactivated Comments 11/24/2010 7:34 AM 11/24/2010 12:53 PM * Full Code Date Activated Date Inactivated Comments 11/24/2010 6:05 AM 11/24/2010 7:34 AM Care Teams Esol Instructor Relationship Specialty Start Date End Date Rich Dupree MD [address] [place] [address] PCP - General Family Practice 10/09/18
--- OUTSIDE RECORDS SUMMARY | 2024-08-09 09:44 | XMS_ITS | Patient Health Record ---
Author Organization [facility] Address [address] [place] [address] Care Team Providers Care Mucking Machine Operator Name Role Phone Mayank Morelos MD Primary Care Provider [phone] Allergies Allergen (clinical drug ingredient) Drug/Non Drug [...] W/U Status Risk Notes Problem Essential hypertension (06738490) Essential (primary) hypertension (I10) Active confirmed Problem Type II diabetes mellitus without complication (684632652) Type 2 diabetes mellitus without complications (E11.9) Active confirmed Problem Hyperlipidemia (21753473) Other hyperlipidemia (E78.49) Active confirmed Plan Of Treatment No Information Insurance Providers Payer Name Payer Address Payer Phone Subscriber Number Group Number Insured Name Patient Relationship to Insured Coverage Start Date Coverage End Date [employer] [id number] [place] [address] [address] [place], [place] [id number] Moy, Jose Spouse - patient is the spouse of the insured 9 Medical (General) History Medical History History ICD Code Obesity Breast cancer DM2 Hyperlipidemia Depression Renal calculi, 06/2010
[2024-08-09 10:21] LABS: Basophils Absolute Auto 0.01 K/uL (0.00-0.30); Basophils Percent Auto 0.2 % (0.0-3.0); Eosinophils Absolute Auto 0.03 K/uL (0.00-0.50); Eosinophils Percent Auto 0.5 % (0.0-7.0); Hematocrit 32.8 % (33.0-51.0); Immature Granulocytes Abs Auto 0.01 K/uL (0.00-0.30); Immature Granulocytes Pct Auto 0.2 %; Mean Corpuscular HGB Conc 34 gm/dL (32-36); Mean Corpuscular Hemoglobin 27 pg (26-34); Mean Corpuscular Volume 81 fL (80-100); Neutrophils Percent Auto 78.1 % (42.0-72.0); Platelet Count* 175 K/uL (140-440); Red Blood Count 4.06 m/uL (4.00-5.20); White Blood Count* 6.48 K/uL (4.50-11.00)
[2024-08-09 10:22] LABS: Slide Review Reflex No
--- NOTE | 2024-08-09 10:28 | ED_ITS ---
HPI - General Adult General Date Seen: 08/09/24 Chief complaint: Fever Stated complaint: Sepsis Time Seen by Provider: 08/09/24 10:00 History of Present Illness HPI narrative: This is a 59-year-old female who was called to return to the ER today for evaluation of positive blood cultures that were drawn yesterday in the ER. She had been seen in the ER 4 days ago on 08/05 for nausea and vomiting and left flank pain. During that visit she had a temp of 97?, blood pressure 137/87, pulse ox 100%. Pulse 76. WBC was 6.2, hemoglobin 11.7, platelet count 340. Sodium 138, potassium 3.0, chloride 101, bicarb 20, BUN 14, creatinine 0.7, glucose 216. LFTs were mildly abnormal with an AST of 37, ALT of 38, lipase was 501. CT abdomen/pelvis Impression: 1. Obstructing 6 millimeter stone seen in the proximal left ureter causing mild left-sided hydroureteronephrosis. Gallbladder ultrasound IMPRESSION: Sonographically normal appearing gallbladder and common bile duct. Fatty infiltration of the liver. She is able to discharge with oral medications for pain and nausea. Flomax. She return to the ER yesterday on 08/08. She had developed a fever up to 103 at home. Blood pressure was 91/59. Her flank and abdominal pain had resolved. Repeat workup had urinalysis with positive nitrite, 5-10 white cells, resolution of hematuria but still 2+ blood. WBC 7.1, hemoglobin 11.5, platelet count 165. Sodium 130, potassium 3.1, chloride 92, bicarb 22, BUN up to 52, creatinine up to 2.5. Glucose 203. Venous lactic was 1.4. CT scan abdomen/pelvis-repeat IMPRESSION: Persistent mild left hydroureteronephrosis, the previously visualized obstructing 6 millimeter calculus in the longer visualized. These findings likely represent a recently passed urinary calculus. A superimposed infection may have a similar appearance. Correlation with urinalysis is advised. She was given Rocephin in the ER yesterday. Discharged home with a prescription for Keflex. Blood culture has come back positive for Gram-negative rods, initial speciation indicates E coli. No sensitivity data available at this time. Since discharge yesterday she has been resting at home. She has had a rough restless night. She has been having some abdominal pain, nausea, intermittent fevers and ongoing chills. She has had some weakness. Poor appetite and nausea and was only able to eat about 4 grapes this morning. She is not having any cough. No trouble breathing. She is having generalized weakness. Related Data Home Medications ?Medication ?Instructions ?Recorded ?Confirmed atorvastatin 20 mg tablet 20 mg PO DAILY 06/24/23 08/05/24 losartan 100 1 tab PO DAILY 06/24/23 08/05/24 mg-hydrochlorothiazide 12.5 mg tablet metformin 1,000 mg tablet 1,000 mg PO BID 06/24/23 08/05/24 dulaglutide 1.5 mg/0.5 mL 1.5 mg subcut 08/05/24 subcutaneous pen injector (Trulicity) Previous Rx's ?Medication ?Instructions ?Recorded insulin glargine 100 unit/mL (3 8 unit (0.08 mL) subcut QPM #3 mL 06/24/23 mL) subcutaneous pen (Lantus Solostar U-100 Insulin) hydrocodone 5 mg-acetaminophen 325 1 tab PO Q8H PRN pain #10 tabs 08/05/24 mg tablet ondansetron 4 mg disintegrating 4 mg PO Q8H PRN nausea and 08/05/24 tablet vomiting #20 tabs tamsulosin 0.4 mg capsule (Flomax) 0.4 mg PO DAILY #10 caps 08/05/24 cephalexin 500 mg capsule 500 mg PO TID 7 days #21 caps 08/08/24 Allergies Allergy/AdvReac Type Severity Reaction Status Date / Time Sulfa (Sulfonamide Allergy Unknown Verified 08/09/24 09:50 Antibiotics) [facility] Social History Smoking Status: Never smoker Do you use any of these nicotine containing products: None Second hand tobacco smoke exposure: No How often do you have a drink containing alcohol: never How often do you have six or more drinks on one occasion: Never AUDIT-C Alcohol total score: 0 Non-prescribed substance use: denies use service: No Exam Narrative: Exam Narrative: Constitutional: Appears well-developed and well-nourished. Alert. Conversant but looks rundown and is having shaking chills and rigors. HENT: Head: Atraumatic. Nose: Nose normal. Mouth/Throat: Oral mucosa is clear but dry, not desiccated a crack.. no trismus. Pharynx normal. Tonsils symmetric. No tonsillar enlargement, erythema, or exudate. Eyes: Conjunctivae normal. EOM normal. Pupils equal, round, and reactive to light. No scleral icterus. Neck: Normal range of motion. Neck supple. No tracheal deviation present. Cardiovascular: Normal rate, regular rhythm. No gallop. No friction rub. No murmur heard. Symmetric radial artery pulses Pulmonary/Chest: Effort normal. No stridor. No respiratory distress. No wheezes. No rales. No rhonchi . No tenderness. Abdominal: Soft. Bowel sounds normal. No distension. No mass. Mild right upper quadrant and left upper quadrant tenderness. Also left CVA and left lower quadrant tenderness. No rebound. No guarding. Musculoskeletal: RUE: Normal range of motion. No tenderness. No deformity LUE: Normal range of motion. No tenderness. No deformity RLE: Normal range of motion. No edema. No tenderness. No deformity LLE: Normal range of motion. No edema. No tenderness. No deformity Neurological: Alert and oriented to person, place, and time. Normal strength. CN II-VII intact. No sensory deficit. GCS eye subscore is 4. GCS verbal subscore is 5. GCS motor subscore is 6. Normal coordination Skin: Skin is warm and dry. No rash noted. No pallor. Normal capillary refill. Psychiatric: Tired and run down. Normal mood. Normal affect. Const: Vital Signs, click to edit/add: Vital Signs - 24 hr 08/09/24 09:53 08/09/24 10:17 08/09/24 10:32 Temperature 97.9 F Pulse Rate 87 90 Pulse Rate [Pulse Oximeter] 90 Respiratory Rate 18 Blood Pressure 120/63 Blood Pressure [Ri ght Upper Arm] 132/71 Pulse Oximetry 88 97 97 Oxygen Delivery Me thod Room Air 08/09/24 11:12 08/09/24 11:14 08/09/24 11:45 Temperature 100.5 F H Pulse Rate 95 101 H Pulse Rate [Pulse Oximeter] Respiratory Rate 20 Blood Pressure 124/72 132/72 Blood Pressure [Ri ght Upper Arm] Pulse Oximetry 98 98 Oxygen Delivery Me thod 08/09/24 11:47 08/09/24 12:02 08/09/24 12:03 Temperature 100.5 F H Pulse Rate 102 H 100 Pulse Rate [Pulse Oximeter] Respiratory Rate Blood Pressure 135/68 Blood Pressure [Ri ght Upper Arm] Pulse Oximetry 95 94 Oxygen Delivery Me thod 08/09/24 13:09 08/09/24 13:09 08/09/24 13:32 Temperature 99.3 F Pulse Rate 100 97 Pulse Rate [Pulse Oximeter] Respiratory Rate Blood Pressure 117/64 112/63 Blood Pressure [Ri ght Upper Arm] Pulse Oximetry 93 94 Oxygen Delivery Me thod Course Course ED Course: Recheck-pulse in the 90s. Blood pressure 136/72. No longer shaking rigors. Still having left-sided. Dilaudid ordered. Reevaluation(s) Reevaluation #1: Discussed with hospitalist, Dr. Meade who agrees to admit but request that we obtain a CT scan to make sure there is no evolving perinephric abscess before she can be accepted to the medical floor. CT was obtained and fortunately is normal. Recheck-accepted by Dr. Meade for admission. Vital Signs Vital signs: Initial Vital Signs Temperature 97.9 F 08/09/24 09:53 Temperature Source Temporal Artery Scan 08/09/24 09:53 Pulse Rate 90 08/09/24 09:53 Pulse Rhythm Regular 08/09/24 09:53 Respiratory Rate 18 08/09/24 09:53 Blood Pressure 132/71 08/09/24 09:53 Blood Pressure Mean 91 08/09/24 09:53 Blood Pressure Position Supine 08/09/24 09:53 Pulse Oximetry 88 08/09/24 09:53 Oxygen Delivery Method Room Air 08/09/24 09:53 Vital Signs Temperature 97.9 F 08/09/24 09:53 Pulse Rate 90 08/09/24 09:53 Respiratory Rate 18 08/09/24 09:53 Blood Pressure 132/71 08/09/24 09:53 Pulse Oximetry 88 08/09/24 09:53 Oxygen Delivery Method Room Air 08/09/24 09:53 Temperature 99.3 F 08/09/24 13:09 Pulse Rate 97 08/09/24 13:32 Respiratory Rate 20 08/09/24 11:45 Blood Pressure 112/63 08/09/24 13:32 Pulse Oximetry 94 08/09/24 13:32 Oxygen Delivery Method Room Air 08/09/24 09:53 Medications Administered Medications: Generic Name Dose Route Start Last Admin Trade Name Freq PRN Reason Stop Dose Admin Hydromorphone HCl 0.5 mg 08/09/24 12:19 08/09/24 13:08 Hydromorphone 0.5 Mg/0.5 Ml Inj IVP 0.2 mg Q1H PRN Administration Pain Piperacillin Sod/Tazobactam 100 mls @ 200 mls/hr 08/09/24 11:00 08/09/24 11:44 Sod 4.5 gm/ Sodium Chloride IVPB Infused Q6H PAULO Infusion Discontinued Medications Generic Name Dose Route Start Last Admin Trade Name Freq PRN Reason Stop Dose Admin Acetaminophen 1,000 mg 08/09/24 11:25 08/09/24 11:47 Acetaminophen 500 Mg Tablet PO 08/09/24 11:26 1,000 mg ONCE ONE Administration Sodium Chloride 1,000 mls @ 1,000 mls/hr 08/09/24 11:00 08/09/24 11:11 0.9 % Sodium Chloride 1000 Ml IV 08/09/24 11:59 1,000 mls/hr .Q1H PAULO Administration Ondansetron HCl 4 mg 08/09/24 12:19 08/09/24 13:08 Ondansetron 2 Mg/Ml Inj IVP 08/09/24 12:20 4 mg ONCE ONE Administration Medical Decision Making MDM Narrative Medical decision making narrative: 59-year-old female return to the ER today after being called back by my partner. She was in the ER on Tuesday with left-sided pain and found to have a 6 mm stone. She was seen againn yesterday for fever, chills, body aches, nausea and found to have UTI, acute kidney injury. Fortunately the repeat CT scan yesterday showed interval passage of her stone. Treated with Rocephin and discharged home with prescription for cephalexin. Blood culture from yesterday is positive for E coli. Sensitivity data pending. Lab workup today shows normal white count but elevated CRP. She is hemodynamically stable today and actually blood pressure is higher today than it was yesterday. However she does have fever, shaking chills and rigors here in the ER. Repeat CT imaging shows she changes suggestive of a left-sided pyelonephritis but no evidence for any ongoing ureteral obstruction and no evidence for interval development perinephric abscess or other surgical pathology. I do think she has pyelonephritis with bacteremia and probable sepsis but at this point no evidence for septic shock requiring ICU admission or vasopressors. She will be admitted to the hospitalist service for ongoing IV antibiotics. Lab Data Labs: Lab Results 08/09/24 08/09/24 Range/Units 10:01 10:10 WBC 6.48 (4.50-11.00) K/uL RBC 4.06 (4.00-5.20) m/uL Hgb 11.0 L (12.0-16.0) gm/dL Hct 32.8 L (33.0-51.0) % MCV 81 (80-100) fL MCH 27 (26-34) pg MCHC 34 (32-36) gm/dL RDW Coeff of Cass 13.0 (11.5-15.5) % Plt Count 175 (140-440) K/uL Neut % (Auto) 78.1 H (42.0-72.0) % Lymph % (Auto) 9.0 L (20-44) % Bartholomew % (Auto) 12.0 H (0.0-11.0) % Eos % (Auto) 0.5 (0.0-7.0) % Baso % (Auto) 0.2 (0.0-3.0) % Neut # (Auto) 5.10 (1.7-7.0) K/uL Lymph # (Auto) 0.60 L (0.90-2.90) K/uL Bartholomew # (Auto) 0.80 (0.00-0.90) K/UL Eos # (Auto) 0.03 (0.00-0.50) K/uL Baso # (Auto) 0.01 (0.00-0.30) K/uL Abs Immat Gran (auto) 0.01 (0.00-0.30) K/uL Imm/Tot Granulo (auto) 0.2 % Sodium 135 (135-149) mmol/L Potassium 3.0 L (3.6-5.1) mmol/L Chloride 98 (96-114) mmol/L Carbon Dioxide 23 (20-32) mmol/L Anion Gap 14 (7-15) mEq/L BUN 36 H (7-30) mg/dL Creatinine 1.3 (0.5-1.5) mg/dL Estimated Creat Clear 45.31 Estimated GFR 47 ml/min Glucose 185 H (60-115) mg/dL Lactate 1.7 (0.5-1.9) mmol/L Calcium 8.8 (8.4-10.6) mg/dL Total Bilirubin 1.1 (0.1-1.5) mg/dL Direct Bilirubin 0.7 H (0.0-0.5) mg/dL AST 63 H (12-35) U/L ALT 40 H (4-35) U/L Alkaline Phosphatase 69 (40-150) U/L C-Reactive Protein 24.9 H (0.5-1.0) mg/dL Total Protein 6.8 (6.0-8.3) g/dL Albumin 3.7 (3.3-5.0) g/dL Lipase 170 (23-300) U/L Urine Color Yellow (Yellow) Urine Appearance Slightly Cloudy A (Clear) Urine pH 5.5 (5.0-8.5) Ur Specific [place] 1.020 (1.000-1.030) Urine Protein 2+ A (Negative) Urine Glucose (UA) Negative (Negative) Urine Ketones 2+ A (Negative) Urine Blood 1+ A (Negative) Urine Nitrite Negative (Negative) Urine Bilirubin Negative (Negative) Urine Urobilinogen 0.2 (0.2-1.0) Ur Leukocyte Esterase Negative (Negative) Urine RBC 0-2 (0-2) Urine WBC 0-2 (0-5) Ur Squamous Epith Cells None (None-Few) Urine Bacteria None (None) Imaging Data Chest x-ray: Attestation: I have reviewed the pertinent imaging results. Radiologist's impression: IMPRESSION: Lungs clear. No acute findings. CT scan - abdomen: Attestation: I have reviewed the pertinent imaging results. Radiologist's impression: IMPRESSION: 1. Left perinephric and periureteral stranding with subtle decreased perfusion of the left kidney may represent sequela of recently passed stone or infection in the appropriate clinical setting. No focal renal abnormality or perinephric fluid collection. 2. No other acute abnormality in the abdomen or pelvis. 3. Trace left pleural effusion, unchanged. Discharge Plan Discharge Clinical Impression: Bacteremia, Pyelonephritis
[2024-08-09 10:41] LABS: Chloride* 98 mmol/L (96-114); Sodium* 135 mmol/L (135-149)
[2024-08-09 10:44] LABS: Anion Gap 14 mEq/L (7-15); Blood Urea Nitrogen* 36 mg/dL (7-30); Calcium* 8.8 mg/dL (8.4-10.6); Carbon Dioxide* 23 mmol/L (20-32); Creatinine* 1.3 mg/dL (0.5-1.5); Est. Creatinine Clearance* 45.31; Estimated Glomerular Filt Rate 47 ml/min; Glucose* 185 mg/dL (60-115)
--- NOTE | 2024-08-09 10:50 | CRLHL7_ITS ---
For Patients: As a result of the Century Cures Act, medical imaging exams and procedure reports are released immediately into your electronic medical record. You may view this report before your referring provider. If you have questions, please contact your health care provider. INDICATION: Fever, right basilar wheezing COMPARISON: CT abdomen pelvis 08/08/2024, CT chest 02/18/2011 TECHNIQUE: PA and lateral 2 view chest. FINDINGS: Lung volumes are moderate. No focal or diffuse opacities. No pulmonary edema. No pleural effusion seen. Specifically the small left pleural effusion seen on CT yesterday is not visible radiographically. No pneumothorax. No pneumomediastinum. Normal cardiomediastinal silhouette. Bones: T9 and T10 superior endplate compression deformities are chronic. No acute appearing bone finding. Increased density associated with bilateral breast implants. IMPRESSION: Lungs clear. No acute findings. Dictated by Julissa Moore MD @ 08/09/2024 11:52:38 AM (Electronically Signed)
[2024-08-09 11:05] LABS: C Reactive Protein* 24.9 mg/dL (0.5-1.0)
[2024-08-09 11:08] LABS: Albumin* 3.7 g/dL (3.3-5.0)
[2024-08-09 11:11] LABS: Alanine Aminotransferase* 40 U/L (4-35); Alkaline Phosphatase* 69 U/L (40-150); Aspartate Amino Transferase* 63 U/L (12-35); Bilirubin Direct* 0.7 mg/dL (0.0-0.5); Bilirubin Total* 1.1 mg/dL (0.1-1.5); Lipase* 170 U/L (23-300); Total Protein* 6.8 g/dL (6.0-8.3)
[2024-08-09] MEDS: 0.9 % SODIUM CHLORIDE 1000 ml 1,000 ML IV (11:11)
[2024-08-09] MEDS: PIPERACILLIN/TAZOBACTAM 4.5 GM in 0.9 % SODIUM CHLORIDE Mini-bag 100 ML IVPB ×2 (11:11→17:06)
[2024-08-09 11:12] LABS: Appearance Urine Slightly Cloudy (Clear); Bilirubin Urine Negative (Negative); Blood Urine 1+ (Negative); Color Urine Yellow (Yellow); Glucose Urine Negative (Negative); Ketones Urine 2+ (Negative); Leukocyte Esterase Urine Negative (Negative); Nitrite Urine Negative (Negative); Protein Urine 2+ (Negative); Urobilinogen Urine 0.2 (0.2-1.0); pH Urine 5.5 (5.0-8.5)
[2024-08-09 11:21] LABS: RBC Urine 0-2 (0-2); WBC Urine 0-2 (0-5)
[2024-08-09 11:23] LABS: Lactate* 1.7 mmol/L (0.5-1.9)
[2024-08-09] MEDS: ACETAMINOPHEN 500 MG TABLET 1000 MG PO (11:47)
--- OUTSIDE RECORDS SUMMARY | 2024-08-09 12:02 | XMS_ITS | Clinical Summary ---
Author Organization [employer] [facility] Address [address] [place] [address] Care Team Providers Care Stamping Die Maker Bench Name Role Phone Rich Dupree MD Primary Care Provider [phone] Allergies Active Allergy Reactions Criticality Noted Date [...] 36 mL 3 09/01/19 24 Active Insulin [place], Disposable, (Pen Needle) 32 gauge x 5/32Indications: [...] Type Department Care Team Description 08/08/2024 Telephone [facility] [address] [place] [address] Rich Dupree MD Kidney Stone; Fever 08/05/2024 Orders Only [facility] Scanner 1 scan: (1-Ord) [facility], CT ABDOMEN PELVIS W CON, 08/05/2024 08/05/2024 Orders Only [facility] Scanner 1 scan: (1-Ord) [place], ABDOMEN LIMITED, 08/05/2024 07/24/2024 Refill [facility] [address] [place] [address] Rich Dupree MD Refill Request (Atorvastatin) 05/24/2024 9:50 AM BALANCE WHEEL FACER Office Visit [facility] [address] [place] [address] Rich Dupree MD Diabetes 05/23/2024 Travel 05/21/2024 Refill [facility] [address] [place] [address] Rich Dupree MD Refill Request (Losartan Potassium [...] on file Legal Sex Female 5:25 AM BALANCE WHEEL FACER Gender Identity Not on file Sexual Orientation Not on file Obstetrics History Para Term AB IAB SAB Ectopic Multiple Livin g Live Births 5 5 Date Outcome GA Total Labor Labor/2nd/3rd Weight Sex Type Anes PTL Cyndi A1 A5 Name Clin Para Para Para Para Para Last Filed Vital Signs Vital Sign Reading Time Taken Comments Blood Pressure 131/82 05/24/2024 10:05 AM BALANCE WHEEL FACER Pulse 80 05/24/2024 10:05 AM BALANCE WHEEL FACER Temperature 36.6 C (97.9 F) 09/30/2021 8:13 AM CDT Respiratory Rate 16 12/27/2016 9:09 AM CDT Oxygen Saturation 98% 05/24/2024 10:05 AM BALANCE WHEEL FACER Inhaled Oxygen Concentration - - Weight 82 kg (180 lb 11.2 oz) 05/24/2024 10:05 A M BALANCE WHEEL FACER Height 169.7 cm (5' 6.81) 02/08/2023 3:15 PM CD T Body Mass Index 28.46 02/08/2023 3:15 PM CDT Plan of Treatment Upcoming Encounters Date Type Department Care Team (Late st Contact Info) Description 11/26/2024 9:05 AM CDT Office Visit [facility] [address] [place] [address] Rich Dupree MD [address] [place] [address] Health Maintenance Due Date Last Done Comments [...] Completed 09/29/2022 Medical Devices Implanted Type Area Cigar Tobacco Processing Supervisor Device Identifier Shelf Expiration Date Model / Serial / Lot Implnt Mammary [id number] - [id number] Implanted:Qty: 1 on 11/24/2010 at [facility] Explanted:at [facility] (Quantity not on file) Left: Breast [employer] [id number] # / [id number] / [id number] implnt Mammary [id number] Implanted:Qty: 1 on 11/24/2010 at [facility] Explanted:at [facility] (Quantity not on file) Right: Breast [employer] [id number] # / [id number] / [id number] Procedures Procedure Name Priority Date/Time Associated Diagnosis Comments SCAN-CT INTERPRETATION 08/05/2024 12:00 AM CDT SCAN-ULTRASOUND REPORT 08/05/2024 12:00 AM CDT HEMOGLOBIN A1C MONITORING (POCT) Routine 05/24/2024 9:55 AM BALANCE WHEEL FACER Type 2 diabetes mellitus with microalbuminuria, without long-term current use of insulin (HC) LIPID PANEL Routine 05/24/2024 9:55 AM BALANCE WHEEL FACER Type 2 diabetes mellitus with microalbuminuria, without long-term current use of insulin (HC) LC HIV-1/O/2, 4TH GENERATION Routine 09/29/2022 1:04 PM CDT Screening for HIV (human immunodeficiency virus) MARGARINE MAKER THIN PREP PAP SCREEN IMAGED Routine 12/07/2019 1:45 PM CDT Cervical cancer screening COLONOSCOPY 12/08/2018 8:58 AM CDT Screen for colon cancer ANTI HCV Routine 04/14/2011 3:28 PM BALANCE WHEEL FACER Elevated LFTs from Last 3 Months or Most Recently Relevant to Health Maintenance Results * SCAN-ULTRASOUND REPORT (08/05/2024 12:00 AM CDT) Anatomical Region Laterality Modality Other us Scanner OTHER Final Result * SCAN-CT INTERPRETATION (08/05/2024 12:00 AM CDT) Anatomical Region Laterality Modality Other us Scanner OTHER Final Result * (ABNORMAL) POCT Hemoglobin A1C Monitoring (05/24/2024 9:55 AM BALANCE WHEEL FACER) POC HEMOGLOBIN A1C 6.9(H) <6.0 % OF TOTAL HGB [facility] Comment: Any point of care results exhibiting inconsistency with the patient's clinical status should be repeated using a different testing method. Blood BLOOD SPECIMEN / Unknown 05/24/2024 9:55 AM BALANCE WHEEL FACER 05/24/2024 9:55 AM BALANCE WHEEL FACER Rich Dupree MD CHEMISTRY Final Resu lt [facility] [address] [place] [address], [place] [phone] [facility] [address] [place] [address] * LIPID PANEL (05/24/2024 9:55 AM BALANCE WHEEL FACER) [facility] CHOLESTEROL, TOTAL 148 <200 mg/dL [facility] HDL CHOLESTEROL 53 > OR = 50 mg/dL [facility] TRIGLYCERIDES 116 <150 mg/dL [facility] LDL-CHOLESTEROL 75 mg/dL (calc) [facility] Comment: Reference range: <100 Desirable range <100 mg/dL for primary prevention; <70 mg/dL for patients with CHD or diabetic patients with > or = 2 CHD risk factors. LDL-C is now calculated using the Coleman-Sage calculation, which is a validated novel method providing better accuracy than the Friedewald equation in the estimation of LDL-C. Coleman SS et al. JUAN CARLOS. 2013;310(19): 8525-3593 (http://education.[employer]faq/WHH665) CHOL/HDLC RATIO 2.8 <5.0 (calc) [facility] NON HDL CHOLESTEROL 95 <130 mg/dL (calc) [facility] Comment: For patients with diabetes plus 1 major ASCVD risk factor, treating to a non-HDL-C goal of <100 mg/dL (LDL-C of <70 mg/dL) is considered a therapeutic option. Blood BLOOD SPECIMEN / Unknown 05/24/2024 9:55 AM BALANCE WHEEL FACER 05/24/2024 9:56 AM BALANCE WHEEL FACER Rich Dupree MD CHEMISTRY Final Resu lt [facility] [address] [address], [place] [phone] [facility] [address] [address] * LC HIV-1/O/2, 4TH GENERATION (09/29/2022 1:04 PM CDT) HIV Scr 4th Gen Non Reactive Non Reactive 10/01/2022 10:06 PM CDT [facility] Comment: HIV Negative HIV-1/HIV-2 antibodies and HIV-1 p24 antigen were NOT detected. There is no laboratory evidence of HIV infection. Blood BLOOD SPECIMEN / Unknown Venipuncture / Unknown 09/29/2022 1:04 PM CDT 09/29/2022 1:08 PM CDT Narrative [facility] - 10/01/2022 10:06 PM CDT Performed at: [address] [place] [id number] Founding Partner: Jesse Price MD, Phone: [phone] us [facility] Final Res ult [facility] [address] [place] [address], * MARGARINE MAKER THIN PREP PAP SCREEN IMAGED (12/07/2019 1:45 PM CDT) Pathologist [facility] Case Report Gynecologic Cytology Report Case: [id number] Authorizing Provider: Rich Dupree MD Collected: 12/07/2019 1345 Ordering Location: [facility] Received: 12/07/2019 1421 Clinic First Screen: Jamie Soto Specimen: MARGARINE MAKER ThinPrep Vial Screening, Cervical 12/13/2019 9:04 AM CDT [facility] INTERPRETATION/ RESULT NEGATIVE FOR INTRAEPITHELIAL LESION OR MALIGNANCY (NIL) (none) 12/13/2019 9:04 AM CDT [facility] IMEN ADEQUACY Satisfactory for evaluation Endocervical component present Scant cellularity 12/13/2019 9:04 AM CDT [facility] HPV REQUEST HPV and PAP 12/13/2019 9:04 AM CDT [facility] Date of LMP 2011 12/13/2019 9:04 AM CDT [facility] Last Pap Date 01/19/16 12/13/2019 9:04 AM CDT [facility] Last Pap Result NIL 0 9:04 AM CDT [facility] Abnormal Pap or [place] Bx in last 5 years No 12/13/2019 9:04 AM CDT [facility] Menstrual Status Postmenopausal 12/13/2019 9:04 AM CDT [facility] [place] Bx Done Today No 12/13/2019 9:04 AM CDT [facility] Additional Information None given 12/13/2019 9:04 AM CDT [facility] Comment: Cytology is screened at [facility] - [address], [place] [address] and [facility] - [address] [place] [address] and [facility] - [address] [place] [address] Interpreted at [facility] - [address], [place] [address] Automated Review Successful 12/13/2019 9:04 AM T [facility] Comment:Specimen processed s uccessfully by automated risk assessment consultant device, ThinPrep Imaging System, [employer] ANCILLARY TESTING MARGARINE MAKER HPV Ordered, Please see separate report 12/13/2019 9:04 AM T [facility] Note The pap test is a [...] and malignant lesions. 12/13/2019 9:04 AM CDT [facility] Other (Cervical) Non-Blood / Unknown 12/07/2019 1:45 PM CDT 12/07/2019 2:21 PM CDT us Rich Dupree MD PATHOLOGY/CYTOLOGY Final R esult [facility] [address] [place] [address], [place] * COLONOSCOPY (12/08/2018 8:58 AM CDT) [...] reponse to care. [facility] flow[facility] and nursing notes for moderate sedation details. Total physician intraservice time was 17 minutes. Coleman Estrella MD 12/08/2018 9:46:37 AM This report has been signed electronically. Note Initiated On: 12/08/2018 8:58 AM Procedure Code(s): --- Professional --- 10774, Colonoscopy, flexible; diagnostic, including collection of specimen(s) bybrushing or washing, when performed (separateprocedure) Diagnosis Code(s): --- Professional --- Z12.11, Encounter for screening formalignant neoplasm of colon D17.5, Benign lipomatous neoplasm of intra-abdominal organs CPT copyright 2018 [employer]. All rights reserved. The codes documented in this report are preliminary and upon camp counselor reviewmay be revised to meet current compliance requirements. Scope In: 9:26:23 AM Scope Withdrawal Time 0 hours 10 minutes 42 seconds Scope Out: 9:41:16 AM us Coleman Estrella MD PROCEDURE ORD Final Res ult * ANTI HCV (04/14/2011 3:28 PM BALANCE WHEEL FACER) ANTI HCV Non-reacti ve [facility] Blood specimen (specimen) BLOOD SPECIMEN / Unknown 04/14/2011 3:28 PM BALANCE WHEEL FACER 04/14/2011 3:09 PM BALANCE WHEEL FACER Coleman Estrella MD SEND OUTS Final Res ult [facility] [place]NAL ZIP [address] [address] from Last 3 Months or Most Recently Relevant to Health Maintenance Insurance * Guarantor: Anu Winter Account Type Relation to Patient Date of Phone Billing Address Personal/Family Self 1965 [phone] (Work) [address] [place] [address] BLUE CROSS OF [facility] Advance Directives * Full Code (Latest Code Status on File) Date Activated Date Inactivated Comments 06/11/2013 10:13 AM 06/12/2013 2:26 AM * Full Code Date Activated Date Inactivated Comments 11/24/2010 7:34 AM 11/24/2010 12:53 PM * Full Code Date Activated Date Inactivated Comments 11/24/2010 6:05 AM 11/24/2010 7:34 AM Care Teams Stamping Die Maker Bench Relationship Specialty Start Date End Date Rich Dupree MD [address] [place] [address] PCP - General Family Practice 10/09/18
--- NOTE | 2024-08-09 12:07 | CRLHL7_ITS ---
For Patients: As a result of the Century Cures Act, medical imaging exams and procedure reports are released immediately into your electronic medical record. You may view this report before your referring provider. If you have questions, please contact your health care provider. INDICATION: Abdominal pain. Recent left stone. TECHNIQUE: CT abdomen and pelvis acquired with 85 cc of Isovue 370 IV contrast. COMPARISON: CT abdomen and pelvis 08/08/2024. FINDINGS: Lower chest: Similar mild bibasilar atelectasis. Trace left pleural effusion, unchanged. Breast prostheses, as before. Liver: Unremarkable. Spleen: Unremarkable. Pancreas: Unremarkable. Gallbladder and bile ducts: No calcified stones or biliary ductal dilatation. Kidneys: Subtle asymmetric decreased perfusion of the left kidney with perinephric and periureteral stranding. No obstructing urolithiasis. No focal lesion or discrete perinephric fluid collection. Right kidney is unremarkable. Adrenal glands: Unremarkable. GI tract: No obstruction or acute inflammatory changes. Normal appendix. No free air or free fluid. Lymph nodes: No pathologic lymphadenopathy. Vascular structures: Mild atherosclerotic disease. No abdominal aortic aneurysm. Pelvic Organs: Uterus, adnexal regions and bladder as imaged are unremarkable. Bones: No acute or suspicious osseous abnormality. IMPRESSION: 1. Left perinephric and periureteral stranding with subtle decreased perfusion of the left kidney may represent sequela of recently passed stone or infection in the appropriate clinical setting. No focal renal abnormality or perinephric fluid collection. 2. No other acute abnormality in the abdomen or pelvis. 3. Trace left pleural effusion, unchanged. Dictated by Bryon Velasquez MD @ 08/09/2024 1:01:57 PM Please note that all CT scans at this facility use dose modulation, iterative reconstruction, and/or weight-based dosing when appropriate to reduce radiation dose to as low as reasonably achievable. Dictated by: Bryon Velasquez MD @ 08/09/2024 13:02:08 (Electronically Signed)
[2024-08-09] MEDS: ONDANSETRON 2 MG/ML inj 4 MG IVP (13:08)
[2024-08-09] MEDS: HYDROmorphone 0.5 mg/0.5 ml inj IVP (13:08)
--- NOTE | 2024-08-09 14:40 | P.IMHP_ITS ---
Assessment and Plan Assessment and plan (1) Bacteremia: Problem comment: - E Coli, 2/2 UTI/nephrolithiasis - on Zosyn (08/09), awaiting sensitivities from cultures - follow BCx - currently hemodynamically stable Status: Acute (2) Pyelonephritis: Problem comment: - ECOLI, on Zosyn (08/09/24) Status: Acute (3) Diabetes mellitus type II, controlled: Problem comment: - last A1C 6.31 May 2024 - takes 40U of Lantus at home, will treat with 20U HS, SSI, accuchecks - typically takes Trulicity Tuesday, will evaluate po intake/symptoms to see if we can administer tomorrow Status: Acute (4) VI (acute kidney injury): Problem comment: - baseline Creatinine 0.7, was up to 2.5 on 08/08 - 1.3 on 08/09, s/p 1L NS bolus in ED - eating/drinking, will continue to follow and hold nephrotoxins Status: Acute (5) Elevated LFTs: Problem comment: - bili, AST, ALT - presumably 2/2 acute illness, asymptomatic, follow Status: Acute (6) Essential hypertension: Problem comment: - HOLDING home Losartan-HCTZ in the setting of bacteremia, acute illness, lower BPs Status: Acute Plan - per above - updated at bedside, questions answered - requires inpatient status given bacteremia, UTI, VI, IV abx Hospitalist- H&P: HPI History of Present Illness Date Seen: 08/09/24 Chief complaint: Sepsis Narrative: Anu Winter is a 59 year old female who presented to the emergency department today at the behest of the ER team for bacteremia. She was seen on 08/05 for nausea, vomiting, and left-sided abdominal pain, diagnosed with nephrolithiasis (6mm stone in proximal left ureter), discharge home on Flomax, Zofran, [place]. She re-presented yesterday for a temperature of 103?; repeat CT demonstrated that she had passed the stone and she was treated with IV ceftriaxone and oral Keflex. Blood cultures collected yesterday and positive for E Coli this morning, urine culture collected yesterday + for GNRs. During the course of illness over the past week, she has had decreased po intake, weakness, intermittent fevers and chills. ER: - WBC 6.48, + PMN predominance - K of 3.0, elevated bilirubin, AST/ALT - creatinine 1.3 (baseline 0.7, was up to 2.5 on on 08/08) - given IVF bolus and Zosyn Patient is admitted to the floor for bacteremia/urosepsis, recent nephrolithiasis. History is updated below, Dr. Dupree is PCP. Review of Systems Status of ROS: Reports: 10 or more systems reviewed and unremarkable except as noted in History and below PFSH COUNTS INCLUDE 234 BEDS AT THE [facility] Medical History (Updated 08/09/24 @ 17:27 by Neela Rios MD) Kidney stone ?N20.0 - Calculus of kidney (ICD-10) Malignant neoplasm of lower-outer quadrant of left female breast (12/08/15) ?C50.512 - Malignant neoplasm of lower-outer quadrant of left female breast (ICD-10) Hyperlipidemia ?E78.5 - Hyperlipidemia, unspecified (ICD-10) Essential hypertension ?I10 - Essential (primary) hypertension (ICD-10) Diabetes mellitus type II, controlled (12/27/16) ?E11.9 - Type 2 diabetes mellitus without complications (ICD-10) Surgical History (Updated 08/09/24 @ 14:48 by Neela Rios MD) S/P mastectomy, bilateral ?Z90.13 - Acquired absence of bilateral breasts and nipples (ICD-10) Hx of colonoscopy ?Z98.890 - Other specified postprocedural states (ICD-10) Social History (Updated 08/09/24 @ 14:46 by Neela Rios MD) Narrative: 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 Has 5 adult sons and 5 grandchildren. Nonsmoker, no ETOH, Full Code. What is your current living situation?: I presently have a place to live Problems where you live: no known problems Problems where you live details: none In the past 12 months, utilities in danger of being shut off: no In past 12 months, lack of transportation kept you from medical appts, meetings, work, or getting things needed for daily living: no In the past 12 mos, have been you worried that your food would run out before you had money to buy more?: never true In the past 12 mos, the food you bought just didn't last and you didn't have money to buy more?: never true Smoking Status: Never smoker Do you use any of these nicotine containing products: None Second hand tobacco smoke exposure: No How often do you have a drink containing alcohol: never How often do you have six or more drinks on one occasion: Never AUDIT-C Alcohol total score: 0 Non-prescribed substance use: denies use Caffeine: Yes How often does anyone, including family, friends and others, physically hurt you : never How often does anyone, including family, friends and others, insult or talk down to you: never How often does anyone, including family, friends and others, threaten you with harm: never How often does anyone, including family, friends and others, scream or curse at you: never service: No Meds Home Medications and Allergies Home Medications ?Medication ?Instructions ?Recorded ?Confirmed ?Type atorvastatin 20 mg tablet 20 mg PO DAILY 06/24/23 08/09/24 History losartan 100 1 tab PO DAILY 06/24/23 08/09/24 History mg-hydrochlorothiazide 12.5 mg tablet metformin 1,000 mg tablet 1,000 mg PO BID 06/24/23 08/09/24 History dulaglutide 3 mg/0.5 mL 3 mg subcut .QFRIDAY 08/09/24 08/09/24 History subcutaneous pen injector (Trulicity) insulin glargine 100 unit/mL (3 40 unit subcut HS 08/09/24 08/09/24 History mL) subcutaneous pen (Lantus Solostar U-100 Insulin) Home Medication Comments: Takes Trulicity on Tuesday, currently using 40 units of Lantus at night Allergies Allergy/AdvReac Type Severity Reaction Status Date / Time Sulfa (Sulfonamide Allergy Unknown Verified 08/09/24 09:50 Antibiotics) Exam Narrative: Exam Narrative: GEN: Alert and oriented, answering questions appropriately HEENT: EOMIs bilaterally, no scleral icterus CV: RRR, No concerning murmurs R: LCTA bilaterally without concerning wheezing, air movement adequate Ab: Soft and nontender Back: Normal contours, no CVA TTP Ext: wwp, no concerning edema Skin: No concerning skin lesions or rashes on exposed skin Neuro: Nonfocal Psych: Appropriate Const: Vital Signs, click to edit/add: Vital Signs - 24 hr 08/09/24 09:53 08/09/24 10:17 08/09/24 10:32 Temperature 97.9 F Pulse Rate 87 90 Pulse Rate [Pulse Oximeter] 90 Pulse Rate [Right Radial] Respiratory Rate 18 Blood Pressure 120/63 Blood Pressure [Ri ght Arm] Blood Pressure [Ri ght Upper Arm] 132/71 Pulse Oximetry 88 97 97 [facility] 08/09/24 11:12 08/09/24 11:14 08/09/24 11:45 Temperature 100.5 F H Pulse Rate 95 101 H Pulse Rate [Pulse Oximeter] Pulse Rate [Right Radial] Respiratory Rate 20 Blood Pressure 124/72 132/72 Blood Pressure [Ri ght Arm] Blood Pressure [Ri ght Upper Arm] Pulse Oximetry 98 98 Oxygen Delivery Me thod 08/09/24 11:47 08/09/24 12:02 08/09/24 12:03 Temperature 100.5 F H Pulse Rate 102 H 100 Pulse Rate [Pulse Oximeter] Pulse Rate [Right Radial] Respiratory Rate Blood Pressure 135/68 Blood Pressure [Ri ght Arm] Blood Pressure [Ri ght Upper Arm] Pulse Oximetry 95 94 Oxygen Delivery Me thod 08/09/24 13:09 08/09/24 13:09 08/09/24 13:32 Temperature 99.3 F Pulse Rate 100 97 Pulse Rate [Pulse Oximeter] Pulse Rate [Right Radial] Respiratory Rate Blood Pressure 117/64 112/63 Blood Pressure [Ri ght Arm] Blood Pressure [Ri ght Upper Arm] Pulse Oximetry 93 94 Oxygen Delivery Il thod 08/09/24 14:13 Temperature 98.1 F Pulse Rate Pulse Rate [Pulse Oximeter] Pulse Rate [Right Radial] 84 Respiratory Rate 20 Blood Pressure Blood Pressure [Ri ght Arm] 117/68 Blood Pressure [Ri ght Upper Arm] Pulse Oximetry 97 Oxygen Delivery Il thod Room Air Hospitalist - H&P: Result Labs Labs: Short CBC 08/09/24 Range/Units 10:10 WBC 6.48 (4.50-11.00) K/uL Hgb 11.0 L (12.0-16.0) gm/dL Hct 32.8 L (33.0-51.0) % Plt Count 175 (140-440) K/uL BMP 08/09/24 10:10 Sodium 135 Potassium 3.0 L Chloride 98 Carbon Dioxide 23 BUN 36 H Creatinine 1.3 Glucose 185 H Calcium 8.8 Liver Function 08/09/24 Range/Units 10:10 Total Bilirubin 1.1 (0.1-1.5) mg/dL Direct Bilirubin 0.7 H (0.0-0.5) mg/dL AST 63 H (12-35) U/L ALT 40 H (4-35) U/L Alkaline Phosphatase 69 (40-150) U/L Albumin 3.7 (3.3-5.0) g/dL Urine 08/09/24 Range/Units 10:01 Urine Color Yellow (Yellow) Urine Appearance Slightly Cloudy A (Clear) Urine pH 5.5 (5.0-8.5) Ur Specific [place] 1.020 (1.000-1.030) Urine Protein 2+ A (Negative) Urine Glucose (UA) Negative (Negative)
--- NOTE | 2024-08-09 15:10 | W.SUR.HO ---
Primary Language: Preferred Language: Guatemalan Patient arrived from the ER per wheelchair. Jose is here with patient. Upon arrival pain is 2/10. She did get some dilaudid in the ER but did develop chest tightness during administration of this medication so only received a small amount. She is alert and orientated. Able to be up independently in her room. She did have a kidney stone early in the week but may have passed this. She was seen a couple times this week in ER and was called to return today d/t positive blood cultures. Neuro Patient orientation (short Person,Place,Time,Situation 08/09/24 14:13 list) IV Location & Site IV Size [Right Wrist] 20G 08/09/24 10:17 Diet 08/09/24 Dinner Regular Diet [DIET]
[2024-08-09] MEDS: POTASSIUM BICARB 25 MEQ EFFERVESCENT TAB PO ×3 (17:03→20:39)
[2024-08-09] MEDS: ONDANSETRON ODT 4 MG TAB PO (17:03)
[2024-08-09] MEDS: ACETAMINOPHEN 325 MG TABLET 975 MG PO (18:12)
[2024-08-09] MEDS: INSULIN ASPART 100 UNIT/ML SUBCUT ×2 (18:20→21:03)
[2024-08-09] MEDS: ERTAPENEM 1 GM in 0.9 % SODIUM CHLORIDE Mini-bag 100 ML IVPB (19:25)
[2024-08-09] MEDS: ENOXAPARIN 40 MG/0.4 ML INJ SUBCUT (20:39)
[2024-08-09] MEDS: SODIUM CHLORIDE 0.9 % (FLUSH) 10 ML SYRINGE 5 ML IVF (20:45)
[2024-08-09] MEDS: INSULIN GLARGINE,HUM.REC.ANLOG 100 UNIT/ML INSULN.PEN 20 UNIT SUBCUT (21:03)
[2024-08-09] MEDS: MORPHINE 4 MG/ML INJ 2 MG IVP (21:11)
[2024-08-09 22:00] LABS: C.Difficile Negative (Negative); CDIFFEPI 027 PRESUMPTIVE NEGATIVE (Negative)
--- NOTE | 2024-08-09 22:56 | PC.NURSE ---
Shift note ([id number]): The pt has been pleasant and cooperative;The pt was c/o nausea- Zofran PO was given with a relief. The pt had a fever of 104.5 degree F, the pt was chills and shivering; PO Tylenol was given ; ice pack applied to bilateral arm pits, neck and groin to cool the patient down; Dr. Rios was notified; IV ABX was changed see order; Temp was rechecked for 98.8 Degree. 2mg of IV Morphine given at HS for left flank pain. The pt has been having loose stool x3 this shift; was notified; an order for stool sample was collected and sent to lab.
[2024-08-10] VITALS (10 sets, daily range): BP systolic 117–155; BP diastolic 65–84; PULSE 77–96; RESP 16–18; TEMP 36.6–39.1; O2SAT 96–99
[2024-08-10] MEDS: ACETAMINOPHEN 325 MG TABLET 975 MG PO ×3 (02:18→15:41)
[2024-08-10] MEDS: MORPHINE 4 MG/ML INJ 2 MG IVP ×2 (02:19→22:44)
--- NOTE | 2024-08-10 06:56 | PC.NURSE ---
End of shift [id number]: Pt AxOx4, pleasant, and cooperative with cares. Pt reported pain that was managed with PRN medication, repositioning, and a calming environment. Pt reported chills with a temperature of 102.3, mortgage or loan underwriter utilized PRN Tylenol. Recheck @ 0700: 98.3. Indep in the room, continent of the bladder. Adequate PO fluid intake. Pt appears resting with call light in room listening to a podcast. ?
[2024-08-10 07:17] LABS: Basophils Absolute Auto 0.01 K/uL (0.00-0.30); Basophils Percent Auto 0.1 % (0.0-3.0); Eosinophils Absolute Auto 0.03 K/uL (0.00-0.50); Eosinophils Percent Auto 0.4 % (0.0-7.0); Hematocrit 28.3 % (33.0-51.0); Hemoglobin* 9.7 gm/dL (12.0-16.0); Immature Granulocytes Abs Auto 0.03 K/uL (0.00-0.30); Immature Granulocytes Pct Auto 0.4 %; Lymphocytes Percent Auto 12.1 % (20-44); Mean Corpuscular HGB Conc 34 gm/dL (32-36); Mean Corpuscular Hemoglobin 28 pg (26-34); Mean Corpuscular Volume 80 fL (80-100); Monocytes Percent Auto 12.1 % (0.0-11.0); Neutrophils Percent Auto 74.9 % (42.0-72.0); Platelet Count* 170 K/uL (140-440); Red Blood Count 3.53 m/uL (4.00-5.20); White Blood Count* 6.67 K/uL (4.50-11.00)
[2024-08-10 07:21] LABS: Albumin* 3.3 g/dL (3.3-5.0); Chloride* 100 mmol/L (96-114)
[2024-08-10 07:22] LABS: Sodium* 135 mmol/L (135-149)
[2024-08-10 07:24] LABS: Blood Urea Nitrogen* 20 mg/dL (7-30); Est. Creatinine Clearance* 58.91; Estimated Glomerular Filt Rate 65 ml/min
[2024-08-10 07:25] LABS: Alanine Aminotransferase* 38 U/L (4-35); Alkaline Phosphatase* 64 U/L (40-150); Anion Gap 7 mEq/L (7-15); Aspartate Amino Transferase* 54 U/L (12-35); Bilirubin Direct* 0.5 mg/dL (0.0-0.5); Bilirubin Total* 0.9 mg/dL (0.1-1.5); Carbon Dioxide* 28 mmol/L (20-32); Glucose* 127 mg/dL (60-115); Magnesium* 1.8 mg/dL (1.5-2.6); Total Protein* 6.7 g/dL (6.0-8.3)
[2024-08-10 07:30] LABS: Slide Review Reflex No
[2024-08-10 07:34] LABS: Potassium* 2.8 mmol/L (3.6-5.1)
[2024-08-10 07:45] LABS: C Reactive Protein* 22.3 mg/dL (0.5-1.0)
[2024-08-10] MEDS: ATORVASTATIN CALCIUM 10 MG TABLET 20 MG PO (09:05)
[2024-08-10] MEDS: POTASSIUM BICARB 25 MEQ EFFERVESCENT TAB PO ×7 (09:06→22:44)
--- NOTE | 2024-08-10 11:12 | P.IMPN_ITS ---
Assessment and Plan Assessment and plan (1) Pyelonephritis: Problem comment: - ECOLI - awaiting sensitivities - rec'd rocephin on 08/08 and keflex by the ED - 08/09 rec'd two doses of zosyn and 1 dose of ertapenem - rev'd CT from 08/05 (6mm left stone without infection) - rev'd CT (non con) from 08/08 (stone passed; equivocal on pyelo - but clinically pyelo) - rev'd CT from 08/09: left sided stranding. no abscess. no stone. Status: Acute (2) Bacteremia: Problem comment: - E Coli, 2/2 pyelo/nephrolithiasis - on ertapenem (08/09), awaiting sensitivities from cultures - follow BCx - currently hemodynamically stable - will discuss case with ID Status: Acute (3) Diabetes mellitus type II, controlled: Problem comment: - last A1C 6.31 May 2024 - takes 40U of Lantus at home, will treat with 20U HS, SSI, accuchecks - typically takes Trulicity Tuesday, will evaluate po intake/symptoms to see if we can administer tomorrow Status: Acute (4) Hypokalemia: Problem comment: - replace, follow Status: Acute (5) VI (acute kidney injury): Problem comment: - baseline Creatinine 0.7, was up to 2.5 on 08/08 - resolving 1.0 on 08/10 - eating/drinking, will continue to follow and hold nephrotoxins Status: Acute (6) Elevated LFTs: Problem comment: - bili, AST, ALT - presumably 2/2 acute illness, no abnormalities on CT, asymptomatic, follow - improving Status: Acute (7) Essential hypertension: Problem comment: - HOLDING home Losartan-HCTZ in the setting of bacteremia, acute illness, lower BPs Status: Acute Subjective Date Seen: 08/10/24 Interval history: Daily Progress Note - Hospital Medicine #: 2 CC: Bacteremia, pyelonephritis, insulin-dependent diabetes 24 HOUR UPDATE: patient continues to spike fevers. T-max overnight 104.5. She currently is getting ertapenem for her bacteremia and pyelonephritis. She feels a little better this morning but really feels pretty weak and warm. Notable Labs, Micro, Rads, Interventions: Currently afebrile. Last fever was 0330 and was 101? F Last night at 6:00 p.m. she was 104.5 ? Blood pressure is stable. She has been hemodynamically stable throughout. Pulse is 70 7-87. Respiratory rate 18 Pulse ox 96% on room air. Weight 78.7 kilos hyperglycemic but A1C 6.9; all reactive to infection presumed. No evidence of leukocytosis. Hemoglobin dropped from 11.0-9.7 which I attribute to dilutional effect. Her potassium dropped from 3.0-2.8 VI has resolved. Her creatinine is now 1.0. It had peaked at 2.5 Her transaminitis is down trending Her CRP has peaked. C diff negative Respiratory panel negative CT ABD/PELVIS from admission 1. Left perinephric and periureteral stranding with subtle decreased perfusion of the left kidney may represent sequela of recently passed stone or infection in the appropriate clinical setting. No focal renal abnormality or perinephric fluid collection. 2. No other acute abnormality in the abdomen or pelvis. 3. Trace left pleural effusion, unchanged. UC: GNR - ID/S pending x 2 POS @15 hours: ECOLI, Sens pending 08/10 NGTD Objective: Vitals: see above Lungs: Clear. Cardiac: S1S2. Disposition/Potential discharge - Today I spent 50minutes seeing the patient, reviewing Expanse and EPIC notes/diagnostics, discussing the care plan with our care time that includes social work, PT/OT, pharmacy, RT, assisted and documenting my impressions and plan in the medical record. Prolonged Physician Services [id number] ([facility]) in conjunction with: 41652 (subsequent visit; 50 mins + 15 mins prolonged services = 65 mins total) I then went back for 15 mins to discuss the findings of ..... Alcohol 53246 >30 mins. We went over all the stigmata of alcoholism I see in this patient. I discussed the effects of chronic alcohol on the brain, liver, and heart. I recommended complete abstinence from alcohol and instructed on programs available at discharge from acute care. Smoking/Tobacco 02830 >10 mins. I went over the clinical stigmata of chronic tobacco use on the body. I explained the effect on the vasculature, lungs, heart, skin. I recommended complete abstinence from tobacco products and instructed on programs available at discharge from acute care. ACP first 30 mins [id number] I went over options for care during this current hospitalization and explained the difference between palliative care and hospice care. I described the likelihood of returning to previous functioning and what the options are going forward for care. Exam Const: Vital Signs, click to edit/add: Vital Signs - 24 hr 08/09/24 11:14 08/09/24 11:45 08/09/24 11:47 Temperature 100.5 F H 100.5 F H Pulse Rate 95 101 H Pulse Rate [Right Radial] Respiratory Rate 20 Blood Pressure 132/72 Blood Pressure [Ri ght Arm] Pulse Oximetry 98 98 Oxygen Delivery Me thod 08/09/24 12:02 08/09/24 12:03 08/09/24 13:09 Temperature 99.3 F Pulse Rate 102 H 100 Pulse Rate [Right Radial] Respiratory Rate Blood Pressure 135/68 Blood Pressure [Ri ght Arm] Pulse Oximetry 95 94 Oxygen Delivery Me thod 08/09/24 13:09 08/09/24 13:32 08/09/24 14:13 Temperature 98.1 F Pulse Rate 100 97 Pulse Rate [Right Radial] 84 Respiratory Rate 20 Blood Pressure 117/64 112/63 Blood Pressure [Ri ght Arm] 117/68 Pulse Oximetry 93 94 97 Oxygen Delivery Me thod Room Air 08/09/24 15:46 08/09/24 15:46 08/09/24 18:12 Temperature 98.9 F 104.5 F H Pulse Rate Pulse Rate [Right Radial] 94 94 Respiratory Rate 20 20 Blood Pressure Blood Pressure [Ri ght Arm] 120/68 Pulse Oximetry 97 Oxygen Delivery Me thod Room Air 08/09/24 19:00 08/09/24 19:33 08/09/24 23:00 Temperature 97.7 F 98.8 F 98.8 F Pulse Rate Pulse Rate [Right Radial] 96 83 Respiratory Rate 20 18 Blood Pressure Blood Pressure [Ri ght Arm] 120/71 107/70 Pulse Oximetry 96 96 Oxygen Delivery Me thod Room Air Room Air 08/10/24 02:18 08/10/24 02:31 08/10/24 03:27 Temperature 102.3 F H 102.3 F H 101 F H Pulse Rate Pulse Rate [Right Radial] 96 Respiratory Rate 18 Blood Pressure Blood Pressure [Ri ght Arm] 155/83 H Pulse Oximetry 99 Oxygen Delivery Me thod Room Air 08/10/24 06:59 08/10/24 07:50 08/10/24 07:50 Temperature 98.3 F 98.5 F Pulse Rate Pulse Rate [Right Radial] 77 77 Respiratory Rate 18 18 Blood Pressure Blood Pressure [Ri ght Arm] 117/70 Pulse Oximetry 96 Oxygen Delivery Me thod Room Air 08/10/24 11:00 Temperature 97.9 F Pulse Rate Pulse Rate [Right Radial] 87 Respiratory Rate 18 Blood Pressure Blood Pressure [Ri ght Arm] 117/65 Pulse Oximetry 96 Oxygen Delivery Me thod Room Air Labs Labs: Laboratory Results - last 24 hr 08/09/24 08/09/24 08/09/24 10:01 10:10 20:59 WBC RBC Hgb Hct MCV MCH MCHC RDW Coeff of [place] Plt Count Neut % (Auto) Lymph % (Auto) [place] % (Auto) Eos % (Auto) Baso % (Auto) Neut # (Auto) Lymph # (Auto) [place] # (Auto) Eos # (Auto) Baso # (Auto) Abs Immat Gran (auto) Imm/Tot Granulo (auto) Sodium Potassium Chloride Carbon Dioxide Anion Gap BUN Creatinine Estimated Creat Clear Estimated GFR Glucose Lactate 1.7 Calcium Magnesium Total Bilirubin 1.1 Direct Bilirubin 0.7 H AST 63 H ALT 40 H Alkaline Phosphatase 69 C-Reactive Protein Total Protein 6.8 Albumin 3.7 Lipase 170 Urine Color Yellow Urine Appearance Slightly Cloudy A Urine pH 5.5 Ur Specific [place] 1.020 Urine Protein 2+ A Urine Glucose (UA) Negative Urine Ketones 2+ A Urine Blood 1+ A Urine Nitrite Negative Urine Bilirubin Negative Urine Urobilinogen 0.2 Ur Leukocyte Esterase Negative Urine RBC 0-2 Urine WBC 0-2 Ur Squamous Epith Cells None Urine Bacteria None Stl C. diff Tox B Gene Negative Stl C. diff [id number]-NAP1-[id number] PRESUMPTIVE NEGATIVE 08/10/24 06:29 WBC 6.67 RBC 3.53 L Hgb 9.7 L Hct 28.3 L MCV 80 MCH 28 MCHC 34 RDW Coeff of Cass 13.0 Plt Count 170 Neut % (Auto) 74.9 H Lymph % (Auto) 12.1 L [place] % (Auto) 12.1 H Eos % (Auto) 0.4 Baso % (Auto) 0.1 Neut # (Auto) 5.00 Lymph # (Auto) 0.80 L [place] # (Auto) 0.80 Eos # (Auto) 0.03 Baso # (Auto) 0.01 Abs Immat Gran (auto) 0.03 Imm/Tot Granulo (auto) 0.4 Sodium 135 Potassium 2.8 L* Chloride 100 Carbon Dioxide 28 Anion Gap 7 BUN 20 Creatinine 1.0 Estimated Creat Clear 58.91 Estimated GFR 65 Glucose 127 H Lactate Calcium 8.0 L Magnesium 1.8 Total Bilirubin 0.9 Direct Bilirubin 0.5 AST 54 H ALT 38 H Alkaline Phosphatase 64 C-Reactive Protein 22.3 H Total Protein 6.7 Albumin 3.3 Lipase Urine Color Urine Appearance Urine pH Ur Specific [place] Urine Protein Urine Glucose (UA) Urine Ketones Urine Blood Urine Nitrite Urine Bilirubin Urine Urobilinogen Ur Leukocyte Esterase Urine RBC Urine WBC Ur Squamous Epith Cells Urine Bacteria Stl C. diff Tox B Gene Stl C. diff [id number]
[2024-08-10] MEDS: INSULIN ASPART 100 UNIT/ML SUBCUT ×2 (13:18→21:07)
[2024-08-10] MEDS: SODIUM CHLORIDE 0.9 % (FLUSH) 10 ML SYRINGE 5 ML IVF ×2 (13:20→21:17)
--- NOTE | 2024-08-10 14:56 | PC.NURSE ---
Nursing Care Hours: [id number] Pt this shift calm and cooperative, alert and oriented. Pain decreased to 2/10 but did c/o of headache 07/02 and requested Tylenol. Tx effective. VSS. Pt having intermittent chills and waking up sweaty. Communications Engineer offered to help pt with shower but pt requesting to rest and try for shower later. Independent ambulation. Drinking and voiding sufficiently. Low appetite but no nausea.
[2024-08-10 18:23] LABS: Chloride* 98 mmol/L (96-114); Sodium* 135 mmol/L (135-149)
[2024-08-10 18:24] LABS: Potassium* 3.3 mmol/L (3.6-5.1)
[2024-08-10 18:27] LABS: Anion Gap 6 mEq/L (7-15); Blood Urea Nitrogen* 18 mg/dL (7-30); Calcium* 8.4 mg/dL (8.4-10.6); Carbon Dioxide* 31 mmol/L (20-32); Creatinine* 0.8 mg/dL (0.5-1.5); Est. Creatinine Clearance* 73.63; Estimated Glomerular Filt Rate 85 ml/min; Glucose* 169 mg/dL (60-115)
[2024-08-10] MEDS: ERTAPENEM 1 GM in 0.9 % SODIUM CHLORIDE Mini-bag 100 ML IVPB (18:49)
[2024-08-10] MEDS: ONDANSETRON ODT 4 MG TAB PO (19:35)
[2024-08-10] MEDS: ENOXAPARIN 40 MG/0.4 ML INJ SUBCUT (21:06)
[2024-08-10] MEDS: INSULIN GLARGINE,HUM.REC.ANLOG 100 UNIT/ML INSULN.PEN 20 UNIT SUBCUT (21:07)
[2024-08-11] MEDS: ACETAMINOPHEN 325 MG TABLET 975 MG PO (01:25)
[2024-08-11 03:00] VITALS: BP 136/80; PULSE 110; RESP 20; O2SAT 97
[2024-08-11 06:23] LABS: Basophils Absolute Auto 0.01 K/uL (0.00-0.30); Basophils Percent Auto 0.2 % (0.0-3.0); Eosinophils Absolute Auto 0.04 K/uL (0.00-0.50); Eosinophils Percent Auto 0.6 % (0.0-7.0); Hematocrit 29.1 % (33.0-51.0); Hemoglobin* 9.7 gm/dL (12.0-16.0); Immature Granulocytes Abs Auto 0.04 K/uL (0.00-0.30); Immature Granulocytes Pct Auto 0.6 %; Lymphocytes Percent Auto 18.1 % (20-44); Mean Corpuscular HGB Conc 33 gm/dL (32-36); Mean Corpuscular Hemoglobin 27 pg (26-34); Mean Corpuscular Volume 82 fL (80-100); Monocytes Percent Auto 10.2 % (0.0-11.0); Neutrophils Absolute Auto 4.43 K/uL (1.7-7.0); Neutrophils Percent Auto 70.3 % (42.0-72.0); Platelet Count* 196 K/uL (140-440); RDW Coefficient of Variation % 13.1 % (11.5-15.5); Red Blood Count 3.57 m/uL (4.00-5.20)
[2024-08-11 06:25] LABS: Slide Review Reflex No
--- NOTE | 2024-08-11 06:35 | PC.NURSE ---
End of shift report [id number]: Alert and oriented x 4. pain well managed with current regimen. Afebrile throughout the shift, patient did report chills but remained afebrile. Urine continues to be annie in appearance. Denies any pain or burning with urination. Bowel sounds active x 4 quadrants. Denies any N & V. Patient independent with ambulation and transfers.
[2024-08-11 06:39] LABS: Albumin* 3.3 g/dL (3.3-5.0); Chloride* 100 mmol/L (96-114)
[2024-08-11 06:40] LABS: Potassium* 3.8 mmol/L (3.6-5.1); Sodium* 137 mmol/L (135-149)
[2024-08-11 06:42] LABS: Blood Urea Nitrogen* 14 mg/dL (7-30); Creatinine* 0.8 mg/dL (0.5-1.5); Est. Creatinine Clearance* 73.63; Estimated Glomerular Filt Rate 85 ml/min
[2024-08-11 06:43] LABS: Alanine Aminotransferase* 38 U/L (4-35); Alkaline Phosphatase* 71 U/L (40-150); Anion Gap 6 mEq/L (7-15); Aspartate Amino Transferase* 56 U/L (12-35); Bilirubin Direct* 0.4 mg/dL (0.0-0.5); Bilirubin Total* 0.8 mg/dL (0.1-1.5); Calcium* 8.2 mg/dL (8.4-10.6); Carbon Dioxide* 31 mmol/L (20-32); Glucose* 143 mg/dL (60-115); Phosphorus* 2.2 mg/dL (2.5-4.5); Total Protein* 6.7 g/dL (6.0-8.3)
[2024-08-11 07:53] LABS: C Reactive Protein* 18.7 mg/dL (0.5-1.0)
[2024-08-11 08:38] VITALS: BP 125/75; PULSE 79; RESP 18; RESP 20; TEMP 37.2; O2SAT 97
[2024-08-11] MEDS: LACTOBACILLUS ACIDOPHILUS 1 TABLET 1 TAB PO ×3 (08:42→18:30)
[2024-08-11] MEDS: ATORVASTATIN CALCIUM 10 MG TABLET 20 MG PO (08:42)
[2024-08-11] MEDS: SODIUM CHLORIDE 0.9 % (FLUSH) 10 ML SYRINGE 5 ML IVF ×2 (08:42→21:06)
--- NOTE | 2024-08-11 09:53 | P.IMPN_ITS ---
Assessment and Plan Assessment and plan (1) Pyelonephritis: Problem comment: - ECOLI - sensitivities reviewed - rec'd rocephin on 08/08 and keflex by the ED - 08/09 rec'd two doses of zosyn and 1 dose of ertapenem - rev'd CT from 08/05 (6mm left stone without infection) - rev'd CT (non con) from 08/08 (stone passed; equivocal on pyelo - but clinically pyelo) - rev'd CT from 08/09: left sided stranding. no abscess. no stone. 08/11 sensitivities reviewed, ID recommendations reviewed. Will discontinue IV ertapenem and start IV ceftriaxone this morning. Plan to transition to oral Ceftin or cefpodoxime on discharge. Discussed with pharmacy Status: Acute (2) Bacteremia: Problem comment: - E Coli, 2/2 pyelo/nephrolithiasis - on ertapenem (08/09), awaiting sensitivities from cultures - follow BCx - currently hemodynamically stable - will discuss case with ID 08/11 antibiotic management as noted above, #1 Status: Acute (3) Diabetes mellitus type II, controlled: Problem comment: - last A1C 6.31 May 2024 - takes 40U of Lantus at home, will treat with 20U HS, SSI, accuchecks - typically takes Trulicity Tuesday, will evaluate po intake/symptoms to see if we can administer tomorrow - restarted Trulicity 08/10 Status: Acute (4) Hypokalemia: Problem comment: - replace, follow 08/11 - potassium 3.8. Continue oral supplement today Phosphorus 2.2. Will replace with 3 doses oral supplement and recheck in a.m.. Calcium 8.2 Status: Acute (5) VI (acute kidney injury): Problem comment: - baseline Creatinine 0.7, was up to 2.5 on 08/08 - resolving 1.0 on 08/10 - eating/drinking, will continue to follow and hold nephrotoxins 08/11 - creatinine improved to 0.8, continue to monitor Status: Acute (6) Elevated LFTs: Problem comment: - bili, AST, ALT - presumably 2/2 acute illness, no abnormalities on CT, asymptomatic, follow - improving, continue to monitor Status: Acute (7) Essential hypertension: Problem comment: - HOLDING home Losartan-HCTZ in the setting of bacteremia, acute illness, lower BPs - pressures stabilizing, continue to monitor Status: Acute Plan Possible discharge to home 08/12 pending ongoing clinical improvement Total Time Spent Total Time Spent: Today I spent 60 minutes seeing the patient, reviewing Expanse and EPIC notes/diagnostics, discussing the care plan with our care time that includes social work, PT/OT, pharmacy, RT, [place] [facility] and documenting my impressions and plan in the medical record. Subjective Date Seen: 08/11/24 Interval history: Daily Progress Note - Hospital Medicine #: 3 CC: Bacteremia, pyelonephritis, insulin-dependent diabetes 24 HOUR UPDATE: Last fever was 101? on 08/10 3:00 a.m., just over 24 hours ago. Continues on getting for her bacteremia and pyelonephritis. Reports feeling okay this morning. Still quite fatigued. Intermittent nausea without vomiting but tolerating orals. Minimal appetite. Denies headache or dizziness this morning. Denies chest pain or shortness of breath. Notable Labs, Micro, Rads, Interventions: Currently afebrile. Last fever was 0300 and was 101? F Blood pressure is stable. She has been hemodynamically stable throughout. Pulse is 70 7-87. Respiratory rate 18 Pulse ox 96% on room air. Weight 78.8 kilos hyperglycemic but A1C 6.9; all reactive to infection presumed. No evidence of leukocytosis. Hemoglobin dropped from 11.0-9.7 which I attribute to dilutional effect, stable. Her potassium dropped from 3.0-2.8. Improved to 3.8 following supplementation VI has resolved. Her creatinine is now 0.8. It had peaked at 2.5 Her transaminitis is down trending Her CRP now downtrending C diff negative Respiratory panel negative CT ABD/PELVIS from admission 1. Left perinephric and periureteral stranding with subtle decreased perfusion of the left kidney may represent sequela of recently passed stone or infection in the appropriate clinical setting. No focal renal abnormality or perinephric fluid collection. 2. No other acute abnormality in the abdomen or pelvis. 3. Trace left pleural effusion, unchanged. UC: GNR Sensitivities reviewed: + ertapenem, as well as ciprofloxacin and levofloxacin as potential oral options BC x 2 POS @15 hours: ECOLI Sensitivities reviewed: +Ertapenem, as well as ciprofloxacin, levofloxacin as potential oral options 08/10 BC NGTD Disposition/Potential discharge - continue IV antibiotics, possible discharge to home 08/12 pending continued clinical improvement Today I spent 50minutes seeing the patient, reviewing Expanse and EPIC notes/diagnostics, discussing the care plan with our care time that includes social work, PT/OT, pharmacy, RT, [place] [facility] and documenting my impressions and plan in the medical record. Exam Narrative: Exam Narrative: PHYSICAL EXAM General: Pleasant, conversant, NAD HEENT: Normocephalic, atraumatic, sclera white, EOMI, oral mucosa moist Cardiovascular: RRR, S1S2. No pitting edema Pulmonary: CTA bilaterally without rhonchi, rales, expiratory wheezes. No dyspnea on room air Abdominal: Soft, nondistended, NTTP Neurological: Alert, answering questions appropriately, cranial nerves intact, no focal findings Extremities: No gross joint deformity or swelling. AROMI. Neurovascularly intact Skin: Warm, dry. Const: Vital Signs, click to edit/add: Vital Signs - 24 hr 08/09/24 12:02 08/09/24 12:03 08/09/24 13:09 Temperature 99.3 F Pulse Rate 102 H 100 Pulse Rate [Right Radial] Respiratory Rate Blood Pressure 135/68 Blood Pressure [Ri ght Arm] Pulse Oximetry 95 94 Oxygen Delivery Me thod 08/09/24 13:09 08/09/24 13:32 08/09/24 14:13 Temperature 98.1 F Pulse Rate 100 97 Pulse Rate [Right Radial] 84 Respiratory Rate 20 Blood Pressure 117/64 112/63 Blood Pressure [Ri ght Arm] 117/68 Pulse Oximetry 93 94 97 Oxygen Delivery Me thod Room Air 08/09/24 15:46 08/09/24 15:46 08/09/24 18:12 Temperature 98.9 F 104.5 F H Pulse Rate Pulse Rate [Right Radial] 94 94 Respiratory Rate 20 20 Blood Pressure Blood Pressure [Ri ght Arm] 120/68 Pulse Oximetry 97 Oxygen Delivery Me thod Room Air 08/09/24 19:00 08/09/24 19:33 08/09/24 23:00 Temperature 97.7 F 98.8 F 98.8 F Pulse Rate Pulse Rate [Right Radial] 96 83 Respiratory Rate 20 18 Blood Pressure Blood Pressure [Ri ght Arm] 120/71 107/70 Pulse Oximetry 96 96 Oxygen Delivery Me thod Room Air Room Air 08/10/24 02:18 08/10/24 02:31 08/10/24 03:27 Temperature 102.3 F H 102.3 F H 101 F H Pulse Rate Pulse Rate [Right Radial] 96 Respiratory Rate 18 Blood Pressure Blood Pressure [Ri ght Arm] 155/83 H Pulse Oximetry 99 Oxygen Delivery Me thod Room Air 08/10/24 06:59 08/10/24 07:50 08/10/24 07:50 Temperature 98.3 F 98.5 F Pulse Rate Pulse Rate [Right Radial] 77 77 Respiratory Rate 18 18 Blood Pressure Blood Pressure [Ri ght Arm] 117/70 Pulse Oximetry 96 Oxygen Delivery Me thod Room Air 08/10/24 11:00 Temperature 97.9 F Pulse Rate Pulse Rate [Right Radial] 87 Respiratory Rate 18 Blood Pressure Blood Pressure [Ri ght Arm] 117/65 Pulse Oximetry 96 Oxygen Delivery Me thod Room Air Labs Labs: Laboratory Results - last 24 hr 08/09/24 08/10/24 20:59 06:29 WBC 6.67 RBC 3.53 L Hgb 9.7 L Hct 28.3 L MCV 80 MCH 28 MCHC 34 RDW Coeff of [place] 13.0 Plt Count 170 Neut % (Auto) 74.9 H Lymph % (Auto) 12.1 L [place] % (Auto) 12.1 H Eos % (Auto) 0.4 Baso % (Auto) 0.1 Neut # (Auto) 5.00 Lymph # (Auto) 0.80 L [place] # (Auto) 0.80 Eos # (Auto) 0.03 Baso # (Auto) 0.01 Abs Immat Gran (auto) 0.03 Imm/Tot Granulo (auto) 0.4 Sodium 135 Potassium 2.8 L* Chloride 100 Carbon Dioxide 28 Anion Gap 7 BUN 20 Creatinine 1.0 Estimated Creat Clear 58.91 Estimated GFR 65 Glucose 127 H Calcium 8.0 L Magnesium 1.8 Total Bilirubin 0.9 Direct Bilirubin 0.5 AST 54 H ALT 38 H Alkaline Phosphatase 64 C-Reactive Protein 22.3 H Total Protein 6.7 Albumin 3.3 Stl C. diff Tox B Gene Negative Stl C. diff [id number] PRESUMPTIVE NEGATIVE
[2024-08-11] MEDS: cefTRIAXone 1 GM in 0.9 % SODIUM CHLORIDE Mini-bag 100 ML IVPB (10:50)
[2024-08-11] MEDS: POTASSIUM CHLORIDE 10 MEQ CAPSULE ER 40 MEQ PO (10:50)
[2024-08-11] MEDS: POTASSIUM PHOS/SODIUM PHOS 250 MG TABLET PO ×3 (10:51→21:05)
[2024-08-11 10:59] VITALS: BP 129/80; PULSE 88; RESP 18; TEMP 36.9; O2SAT 95
[2024-08-11] MEDS: OMEPRAZOLE 20 MG CAPSULE DR PO (13:47)
[2024-08-11 15:00] VITALS: BP 133/83; PULSE 88; RESP 18; O2SAT 95
[2024-08-11] MEDS: INSULIN ASPART 100 UNIT/ML SUBCUT ×2 (18:30→21:04)
[2024-08-11 19:00] VITALS: BP 129/75; PULSE 89; RESP 18; TEMP 37.2; O2SAT 97
--- NOTE | 2024-08-11 19:04 | PC.NURSE ---
Nursing Care Hours: [id number] pt this shift calm and cooperative, alert and oriented. No c/o pain. Afebrile, VSS. Showered today. IV dressing changed. Independent in the room. Omeprazole started d/t pt c/o upper GI discomfort and pressure that started after Potassium PO intake. Tolerating smaller meals.
[2024-08-11] MEDS: INSULIN GLARGINE,HUM.REC.ANLOG 100 UNIT/ML INSULN.PEN 20 UNIT SUBCUT (21:03)
[2024-08-11] MEDS: ENOXAPARIN 40 MG/0.4 ML INJ SUBCUT (21:05)
[2024-08-11 22:48] VITALS: BP 129/79; PULSE 83; RESP 18; TEMP 37.1; O2SAT 97
[2024-08-12] MEDS: ACETAMINOPHEN 325 MG TABLET 975 MG PO (01:32)
[2024-08-12 01:39] VITALS: BP 131/73; PULSE 93; RESP 18; TEMP 36.6; O2SAT 96
--- NOTE | 2024-08-12 05:44 | PC.NURSE ---
Shift note: Pt alert and oriented. Denied any abdominal pain. Patient has had adequate sleep. Vitally stable. No fever recorded
[2024-08-12 06:21] LABS: Phosphorus* 3.7 mg/dL (2.5-4.5)
[2024-08-12] MEDS: OMEPRAZOLE 20 MG CAPSULE DR PO (06:43)
[2024-08-12 07:51] VITALS: BP 139/89; PULSE 82; RESP 18; O2SAT 98
[2024-08-12] MEDS: LACTOBACILLUS ACIDOPHILUS 1 TABLET 1 TAB PO (08:30)
[2024-08-12] MEDS: ATORVASTATIN CALCIUM 10 MG TABLET 20 MG PO (08:30)
--- NOTE | 2024-08-12 09:07 | P.DS_ITS ---
DS: Providers Provider Date Seen: 08/12/24 Date of admission: 08/09/24 14:41 Primary care physician: Rich Dupree MD Admitting Clinician: Merle Meade MD Consults: 08/10/24 11:11 Consult to Infectious Diseases [CONS] Routine Comment: fever; bacteremia; passed infected kidney stone Consulting Provider: Michelle TeleInfectious Disease Attending Physician on discharge: MARTY Monahan, PA-C [facility] Date of Discharge: 08/12/24 DS: Diagnosis Discharge Diagnosis (1) Pyelonephritis: Status: Acute Problem details: - UC growing ECOLI - sensitivities reviewed - rec'd rocephin on 08/08 and keflex by the ED - 08/09 rec'd two doses of zosyn and 1 dose of ertapenem - rev'd CT from 08/05 (6mm left stone without infection) - rev'd CT (non con) from 08/08 (stone passed; equivocal on pyelo - but clinically pyelo) - rev'd CT from 08/09: left sided stranding. no abscess. no stone. 08/11 sensitivities reviewed, ID recommendations reviewed. Will discontinue IV ertapenem and start IV ceftriaxone this morning. Plan to transition to oral Ceftin or cefpodoxime on discharge. Discussed with pharmacy Patient has completed a 3 day course of IV antibiotics, starting with ertapenem and deescalating to ceftriaxone 2 g, based on initial sensitivities. Sensitivities however were updated, and despite being finalized were actually preliminary, and have been sent off to [place]. What was notable is that the urine culture sensitivity to 3rd generation cephalosporins are now reported as resistant and 4th generation were not available despite blood culture showing sensitivities to these classes. Which frankly does not make sense given we suspect the E coli from the urine seeded the blood. We reviewed this with lab. Results have been changed to preliminary, awaiting final UC sensitivities. On day of discharge, IV infiltrated so given a dose of oral levofloxacin, which is reported as sensitive in both blood and urine cultures. Patient has remained afebrile >48 hours. Clinically improving. She is discharged on oral levofloxacin on day of discharge to complete a 10 day course of oral antibiotics for a total of 14 days of antibiotic therapy. Close outpatient follow-up with PCP this week. (2) Bacteremia: Status: Acute Problem details: - E Coli, 2/2 pyelo/nephrolithiasis - on ertapenem (08/09), awaiting sensitivities from cultures - follow BCx: 08/08 blood culture growing E coli, sensitivities reviewed. 08/10 blood culture NGTD - currently hemodynamically stable - will discuss case with ID 08/11 antibiotic management as noted above, #1 Management as above,#1. Per review of [employer], as patient has defervesced and remained afebrile for > 48 hours, switching to an oral agent such as a fluoroquinolone is appropriate as sensitivities have been resulted. Probiotic has been prescribed. Monitor for diarrhea, cdiff risk known (appropriate oral cephalosporins are not available/not yet known). (3) Diabetes mellitus type II, controlled: Status: Acute Problem details: - last A1C 6.31 May 2024 - takes 40U of Lantus at home, will treat with 20U HS, SSI, accuchecks - typically takes Trulicity Tuesday, will evaluate po intake/symptoms to see if we can administer tomorrow - restarted Trulicity 08/10 Resume home medications on discharge. (4) Hypokalemia: Status: Acute Problem details: - replace, follow 08/11 - potassium 3.8. Continue oral supplement today Phosphorus 2.2. Will replace with 3 doses oral supplement and recheck in a.m.. Calcium 8.2 Resolved following oral supplement. (5) VI (acute kidney injury): Status: Acute Problem details: - baseline Creatinine 0.7, was up to 2.5 on 08/08 - resolving 1.0 on 08/10 - eating/drinking, will continue to follow and hold nephrotoxins 08/11 - creatinine improved to 0.8, continue to monitor Resolved prior to discharge. (6) Elevated LFTs: Status: Acute Problem details: - bili, AST, ALT - presumably 2/2 acute illness, no abnormalities on CT, asymptomatic, follow - improving, continue to monitor Have been downtrending. Recheck CMP during follow-up with PCP this week. (7) Essential hypertension: Status: Acute Problem details: - HOLDING home Losartan-HCTZ in the setting of bacteremia, acute illness, lower BPs - pressures stabilizing, continue to monitor Resume home medications on discharge. DS: Summary Hospital Course Hospital Course: Course of care and details as noted above. Completed 4 days of IV antibiotics for bacteremia and pyelonephritis. Discharged to home on oral cefpodoxime for another 10 days of antibiotic, to complete a total of 14 day course antibiotics. Remainder of chronic medical comorbidities were monitored and managed with home medications. Status at Discharge Functional status at discharge: independent ambulation Overall status at discharge: patient is progressing back to baseline Time Spent with Patient Time attestation: Total time spent providing and/or coordinating discharge services: Time spent: Greater than 30 minutes Exam Narrative: Exam Narrative: PHYSICAL EXAM General: Pleasant, conversant, NAD. More alert, brighter, less fatigued Cardiovascular: RRR Pulmonary: No dyspnea Neurological: Alert, answering questions appropriately Skin: Warm, dry. Const: Vital Signs, click to edit/add: Vital Signs - 24 hr 08/11/24 10:59 08/11/24 15:00 08/11/24 15:00 Temperature 98.5 F Pulse Rate [Right Pulse Oximeter] 88 88 88 Respiratory Rate 18 18 18 Blood Pressure [Ri ght Arm] 129/80 133/83 Pulse Oximetry 95 95 Oxygen Delivery Me thod Room Air Room Air 08/11/24 19:00 08/11/24 22:48 08/11/24 22:48 Temperature 98.9 F 98.8 F Pulse Rate [Right Pulse Oximeter] 89 83 83 Respiratory Rate 18 18 18 Blood Pressure [Ri ght Arm] 129/75 129/79 Pulse Oximetry 97 97 Oxygen Delivery Me thod Room Air Room Air 08/12/24 01:39 08/12/24 07:51 08/12/24 07:51 Temperature 97.9 F Pulse Rate [Right Pulse Oximeter] 93 82 82 Respiratory Rate 18 18 18 Blood Pressure [Ri ght Arm] 131/73 139/89 Pulse Oximetry 96 98 Oxygen Delivery Me thod Room Air Room Air DS: Data Data Completed and Pending Pending studies at discharge: Urine culture sensitivity sent to [place], likely available 08/13/2024 Labs on day of discharge: Labs from last 24 hours 08/12/24 05:47 Phosphorus 3.7 Preliminary micro results at discharge 08/10/24 06:29 Blood Culture - Preliminary Blood NO GROWTH AFTER [address] abdomen pelvis: Attestation: I have reviewed the pertinent imaging results. Radiologist's impression: Lower chest: Similar mild bibasilar atelectasis. Trace left pleural effusion, unchanged. Breast prostheses, as before. Liver: Unremarkable. Spleen: Unremarkable. Pancreas: Unremarkable. Gallbladder and bile ducts: No calcified stones or biliary ductal dilatation. Kidneys: Subtle asymmetric decreased perfusion of the left kidney with perinephric and periureteral stranding. No obstructing urolithiasis. No focal lesion or discrete perinephric fluid collection. Right kidney is unremarkable. Adrenal glands: Unremarkable. GI tract: No obstruction or acute inflammatory changes. Normal appendix. No free air or free fluid. Lymph nodes: No pathologic lymphadenopathy. Vascular structures: Mild atherosclerotic disease. No abdominal aortic aneurysm. Pelvic Organs: Uterus, adnexal regions and bladder as imaged are unremarkable. Bones: No acute or suspicious osseous abnormality. IMPRESSION: 1. Left perinephric and periureteral stranding with subtle decreased perfusion of the left kidney may represent sequela of recently passed stone or infection in the appropriate clinical setting. No focal renal abnormality or perinephric fluid collection. 2. No other acute abnormality in the abdomen or pelvis. 3. Trace left pleural effusion, unchanged. Chest x-ray: Attestation: I have reviewed the pertinent imaging results. Radiologist's impression: Lung volumes are moderate. No focal or diffuse opacities. No pulmonary edema. No pleural effusion seen. Specifically the small left pleural effusion seen on CT yesterday is not visible radiographically. No pneumothorax. No pneumomediastinum. Normal cardiomediastinal silhouette. Bones: T9 and T10 superior endplate compression deformities are chronic. No acute appearing bone finding. Increased density associated with bilateral breast implants. IMPRESSION: Lungs clear. No acute findings. Discharge Plan Discharge Disposition: Home, Self-Care Date of Admission: 08/09/24 14:41 Attending Provider on Discharge: Kori Drew Consulting Providers: Fawn Reid; Brianna El Primary Care Provider: Rich Dupree Condition: Improved Anticipated Discharge Date/Time: 08/12/24 08:57 Discharge Medications: New Lactobacillus acidophilus 0.5 mg (100 million cell) Tablet 0.5 mg PO TIDWM Qty: 90 0RF levofloxacin 750 mg tablet 750 mg PO DAILY 10 Days Qty: 10 0RF Rx Instructions: Start on 08/13/2024 Continued tamsulosin [Flomax] 0.4 mg capsule 0.4 mg PO DAILY Qty: 10 3RF ondansetron 4 mg tablet,disintegrating 4 mg PO Q8H PRN (Reason: nausea and vomiting) Qty: 20 0RF hydrocodone-acetaminophen 5-325 mg tablet 1 tab PO Q8H PRN (Reason: pain) Qty: 10 0RF atorvastatin 20 mg tablet 20 mg PO DAILY metformin 1,000 mg tablet 1,000 mg PO BID losartan-hydrochlorothiazide 100-12.5 mg tablet 1 tab PO DAILY Trulicity 3 mg/0.5 mL pen injector 3 mg SUBCUT .QFRIDAY Patient Comments: [NO ORIGINAL SIG] insulin glargine [Lantus Solostar U-100 Insulin] 100 unit/mL (3 mL) insulin pen 40 unit subcut HS Discontinued cephalexin 500 mg capsule 500 mg PO TID 7 Days Qty: 21 0RF Discharge Orders: Discharge Order (Routine); Ordered 08/12/24 Ordered By: Kori Drew Patient Education: Cefpodoxime Proxetil (By mouth) (Vantin), Probiotic (By mouth) (Acidophilus Probiotic Blend, Culturelle,..., Kidney Infection (GEN), Bacteremia (GEN) Additional Instructions: Complete all of the antibiotic. Take the probiotic while you are on the antibiotic. Stay hydrated. Rest Activity Level: Activity as Tolerated Discharge Diet: Regular Follow Up Appointments: Rich Dupree MD [Primary Care Provider] - 08/14/24 11:45 am ([facility] for follow-up.) Forms: [facility] Info Instructions
[2024-08-12] MEDS: SODIUM CHLORIDE 0.9 % (FLUSH) 10 ML SYRINGE 5 ML IVF (09:33)
[2024-08-12] MEDS: cefTRIAXone 2 GM in 0.9 % SODIUM CHLORIDE Mini-bag 100 ML IVPB (09:33)
[2024-08-12] MEDS: levoFLOXacin 750 MG TABLET PO (10:29)
--- NOTE | 2024-08-12 11:21 | PC.NURSE ---
Nursing Care Hours: [id number] Pt this shift calm and cooperative, alert and oriented. No c/o pain. VSS. Pt independent in the room. Tolerating diet, no c/o upper GI discomfort post breakfast. IV leaking when flushed so removed. Pt switched to oral ABX and first dose given here at hospital. Discharge instructions provided. No questions or concerns form pt or SO. Wheeled out to vehicle in stable condition.
== END 2024-08-12 10:33 | disposition home or self-care (01) | DRG 720 ==
LOC: ED 11:59 → MEDSURG 14:05
PROVIDERS: Physician Assistant; Admitting Provider Family Medicine; Emergency Provider Emergency Medicine; PCP Surgery; Visit Provider Family Medicine
DX: A41.9 Sepsis, unspecified organism (principal); N10 Acute pyelonephritis; B96.20 Unspecified Escherichia coli [E. coli] as the cause of diseases classified elsewhere; N17.9 Acute kidney failure, unspecified; E87.6 Hypokalemia; E11.65 Type 2 diabetes mellitus with hyperglycemia; Z79.85 Long-term (current) use of injectable non-insulin antidiabetic drugs; Z79.84 Long term (current) use of oral hypoglycemic drugs; N20.0 Calculus of kidney; Z79.4 Long term (current) use of insulin; R74.01 Elevation of levels of liver transaminase levels; I10 Essential (primary) hypertension; R71.0 Precipitous drop in hematocrit; Z87.442 Personal history of urinary calculi; Z85.3 Personal history of malignant neoplasm of breast; Z90.13 Acquired absence of bilateral breasts and nipples; E78.5 Hyperlipidemia, unspecified
CPT/HCPCS: 36415; 71046; 74177; 80048; 80069; 80076; 81001; 82962; 83605; 83690; 83735; 84100; 85025; 86140; 87040; 87493; 99284; 99285; A9270; J0696; J1171; J1335; J1650; J1815; J2270; J2405; J2543; J7030; Q9967

== ENCOUNTER 2025-02-07 13:00 | Outpatient (RCR) | payer BC, SELFPAY | END 2025-04-25 16:09 | disposition home or self-care (01) | PROVIDERS: PCP Surgery; Visit Provider Surgery | DX: M25.511 Pain in right shoulder (principal); M25.512 Pain in left shoulder; G89.29 Other chronic pain; Z51.89 Encounter for other specified aftercare | CPT/HCPCS: 97110; 97140; 97162 ==